=== PATIENT | male | born 1985 | race Caucasian/White ===

== ENCOUNTER → 2024-05-31 | Outpatient (CLI) | payer OTHER, SELFPAY ==
--- NOTE | 2024-05-31 07:49 | CT_ITS ---
EXAM: CT MAXILLOFACIAL SINUSES WITHOUT INTRAVENOUS CONTRAST CLINICAL INDICATION: SINUSITIS TECHNIQUE: Helically acquired images were obtained of the maxillofacial sinuses without intravenous contrast. This CT exam was performed using one or more of the following dose reduction techniques: automated exposure control, adjustment of the mA and/or kV according to patient size, and/or use of iterative reconstruction technique. COMPARISON: No relevant prior studies available. FINDINGS: MAXILLARY SINUSES: Mild mucosal thickening within the right maxillary sinus. Ostiomeatal complexes are normally formed. SPHENOID SINUSES: Clear. FRONTAL SINUSES: Clear. ETHMOID AIR CELLS: Clear. NASAL CAVITY/SEPTUM: Right-sided sharon bullosa noted associated with 4 mm of deviation of the nasal septum to the left of midline. ORBITS: Normal. CT/Sinus/Facial Bone IMPRESSION: No acute findings in the sinuses. 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 Electronically Signed: Guicho Cowan MD at 10:56 EDT ,
== END | disposition home or self-care (01) ==
LOC: CT 07:45
PROVIDERS: Referring Provider Otolaryngology; Visit Provider Otolaryngology
DX: J32.8 Other chronic sinusitis (principal)
CPT/HCPCS: 70486

== ENCOUNTER → 2024-06-24 | Outpatient (CLI) | payer OTHER, SELFPAY | END | disposition home or self-care (01) | LOC: LABSPEC 14:58 | PROVIDERS: Referring Provider Otolaryngology; Visit Provider Otolaryngology | DX: J32.8 Other chronic sinusitis (principal) | CPT/HCPCS: 87070; 87077; 87186; 87205 ==

== ENCOUNTER → 2024-09-20 | Outpatient (CLI) | payer OTHER, SELFPAY ==
--- NOTE | 2024-09-20 09:54 | RAD_ITS ---
INDICATION: PAIN EXAMINATION/TECHNIQUE: X-RAY - XR Pelvis 1 or 2 Views COMPARISON: No relevant prior comparison study available FINDINGS: PELVIC BONES: No displaced fracture, destructive or sclerotic lesions. Note that overlapping bowel shadows may however obscure fine detail. Sacroiliac joints are unremarkable. No widening of the pubic symphysis. HIPS: The articular structures are unremarkable. No displaced fracture seen in this frontal view. SOFT TISSUES: No soft tissue swelling or gas. RAD/Pelvis 1 or 2 Views IMPRESSION: No evidence of displaced pelvic or hip fracture. Electronically Signed: Greer Downey MD at 21:25 EDT ,
--- NOTE | 2024-09-20 09:54 | RAD_ITS ---
EXAM: XR THORACIC SPINE, 4 VIEWS CLINICAL INDICATION: PAIN TECHNIQUE: Frontal, 2 lateral views, and swimmer''s views of the thoracic spine. COMPARISON: No relevant prior studies available. FINDINGS: VERTEBRAE: The usual kyphotic curvature is well-maintained. Spondylosis at mid and lower thoracic levels Disc height is fairly well-maintained. Straightening of the usual lordotic curvature of the cervical spine on the swimmer''s view. OTHER: Intact posterior ribs. No mediastinal widening. Normal heart size. DISC SPACES: Unremarkable. Disc spaces are maintained. RAD/Thoracic Spine 3 Views IMPRESSION: Minimal degenerative changes. Electronically Signed: Laure Cordova MD at 2:23 EDT ,
--- NOTE | 2024-09-20 09:54 | RAD_ITS ---
EXAM: XR LUMBOSACRAL SPINE, 4 VIEWS CLINICAL INDICATION: PAIN TECHNIQUE: Frontal and lateral views of the lumbar spine. 2 of each. COMPARISON: No relevant prior studies available. FINDINGS: VERTEBRAE: There is minimal levoscoliosis at the thoracolumbar junction. Mild anterior spondylosis at T12-L3. The usual lordotic curvature well-maintained. DISC SPACES: At least mild-moderate disc space narrowing at T12-L2, and mild narrowing at L3-4 and L5-S1. GASTROINTESTINAL TRACT: Unremarkable as visualized. Included bowel gas pattern is non-obstructive. Stool and gas in the rectum. RAD/Lumbar Spine 2 or 3 Views IMPRESSION: Mild multilevel degenerative changes. Minimal scoliosis. Normal lordosis. Electronically Signed: Laure Cordova MD at 2:26 EDT ,
[2024-09-20 12:27] LABS: Absolute Lymphocyte Count 3.22 X10^3/uL (0.83-4.51); Absolute Neutrophil Count 5.7 X10^3/uL (2.0-7.7); Basophil# 0.05 X10^3/uL; Basophil% 0.5 % (0-1); Eosinophil# 0.13 X10^3/uL; Eosinophils% 1.3 % (0-5); Hematocrit 44.7 % (40-54); Hemoglobin 14.4 g/dL (13.0-16.5); Lymphocyte # 3.22 X10^3/ul (0.83-4.51); Lymphocyte % 33.2 % (19-41); Mean Corp Hgb Conc 32.2 g/dL (32-36); Mean Corpuscular Hgb 27.1 pg (27.0-32.0); Mean Platelet Vol. 9.3 fl (6.2-12.0); Monocyte# 0.49 X10^3/uL; Monocyte% 5.1 % (0-10); NRBC Flagged by Analyzer 0 % (0-5); Neutrophil # 5.74 X10^3/uL (2.7-7.7); Neutrophil % 59.3 % (47-70); Platelet Count 329 K/mm3 (150-450); RBC Distribution Width CV 13.4 % (11.6-14.6); RBC Distribution Width SD 41.1 fl (35.1-43.9); Red Blood Count 5.32 M/mm3 (4.6-6.2); White Blood Count 9.7 K/mm3 (4.4-11.0)
[2024-09-20 12:40] LABS: ALB/GLOB Ratio 0.9 RATIO (0.9-2.4); AST(SGOT) 23 U/L (15-37); Alanine Aminotransfer ALT/SGPT 51 U/L (16-61); Albumin, Serum 4.1 g/dL (3.2-5.0); Alkaline Phosphatase 100 U/L (45-117); Anion Gap 5 (5-15); BUN 14 mg/dL (7-18); BUN/Creat Ratio 18.1 RATIO (10-20); Calcium,Total 9.9 mg/dL (8.5-10.1); Chloride 103 mmol/L (98-107); Creatinine, Serum 0.77 mg/dL (0.70-1.30); EST Glomerular Filtration Rate 119 mL/min (>60); Est Glom Filt Rate - Afr Amer 144 mL/min (>60); Globulin 4.5 g/dL (2.2-4.2); Glucose 98 mg/dL (74-106); Potassium 4.2 mmol/L (3.5-5.1); Protein, Total 8.6 g/dL (6.4-8.2); Rheumatoid Factor < 10.0 IU/mL (<15); Sodium Level 138 mmol/L (136-145)
[2024-09-20 13:12] LABS: Hepatitis B Surface Antibody Non-Reactive; Hepatitis B Surface Antigen Non-Reactive (Nonreactive); Hepatitis C Antibody Non-Reactive (Nonreactive)
[2024-09-26 18:07] LABS: CCP IgG Antibodies 5 units (0-19); HLA B27 Negative (.); QNTFERON TB Mitogen Value > 10.00 IU/mL (.); QNTFERON TB Nil Value 0.02 IU/mL (.); QNTFERON TB1+ Ag Value 0.03 IU/mL (.); QNTFERON TB2+ Ag Value 0.04 IU/mL (.); QNTIFERON TB Positive Criteria Negative (Negative)
== END | disposition home or self-care (01) ==
LOC: MTLAB 09:52
PROVIDERS: Referring Provider Internal Medicine Rheumatology; Visit Provider Internal Medicine Rheumatology
DX: M06.4 Inflammatory polyarthropathy (principal); Q66.70 Congenital pes cavus, unspecified foot
CPT/HCPCS: 36415; 72072; 72100; 72170; 80053; 81374; 85025; 86200; 86431; 86480; 86706; 86803; 87340

== ENCOUNTER → 2024-09-30 | Outpatient (CLI) | payer OTHER, SELFPAY ==
[2024-10-03 14:09] LABS: Deamidated Gliadin IgA 3 units (0-19); Deamidated Gliadin IgG 2 units (0-19); Endomysial Antibody IgA Negative (Negative); Immunoglobulin A 364 mg/dL (90-386); t-Transglutaminase IgA <2 U/mL (0-3)
== END | disposition home or self-care (01) ==
LOC: MTLAB 12:44
PROVIDERS: Referring Provider Internal Medicine Rheumatology; Visit Provider Internal Medicine Rheumatology
DX: M06.4 Inflammatory polyarthropathy (principal); E78.5 Hyperlipidemia, unspecified
CPT/HCPCS: 36415; 82784; 83516; 86255

== ENCOUNTER 2025-05-17 14:56 | Emergency (ER) | payer OTHER, SELFPAY ==
[2025-05-17] VITALS (7 sets, daily range): BP systolic 142–194; BP diastolic 91–116; PULSE 68–117; RESP 14–19; TEMP 36.8–37.1; O2SAT 96–100; BMI 45.8
--- NOTE | 2025-05-17 17:01 | EKG12_ITS ---
Test Reason : Blood Pressure : */* mmHG Vent. Rate : 113 BPM Atrial Rate : 113 BPM P-R Int : 156 ms QRS Dur : 86 ms QT Int : 326 ms P-R-T Axes : 52 16 9 degrees QTcB Int : 447 ms Sinus tachycardia Cannot rule out Inferior infarct , age undetermined Abnormal ECG Confirmed by MICHAEL BOWSER, SONJA ([id number]), supervising editor trailer EUGENIA ARNOLD ([id number]) on 05/19/2025 1:02:40 PM Referred By: Confirmed By: SONJA RODRIGUEZ MD
--- NOTE | 2025-05-17 17:10 | RAD_ITS ---
PROCEDURE: CHEST 1 VIEW (PORTABLE) 05/17/2025 REASON FOR EXAM: CHEST PAIN TECHNIQUE: Frontal view of the chest. COMPARISON: None FINDINGS: Mild pulmonary vascular congestion. No focal consolidation. Bibasilar subsegmental atelectasis. No pleural effusion or pneumothorax. Cardiac silhouette is within normal limits. RAD/Chest 1 View (Portable) IMPRESSION: Mild pulmonary vascular congestion. No focal consolidation. Bibasilar subsegmen chela atelectasis. Reading Location: [id number]
[2025-05-17 17:14] LABS: Absolute Lymphocyte Count 2.61 X10^3/uL (0.83-4.51); Absolute Neutrophil Count 8.2 X10^3/uL (2.0-7.7); Basophil# 0.08 X10^3/uL; Basophil% 0.7 % (0-1); Eosinophil# 0.09 X10^3/uL; Eosinophils% 0.8 % (0-5); Hematocrit 44.9 % (40-54); Hemoglobin 15.5 g/dL (13.0-16.5); Lymphocyte # 2.61 X10^3/ul (0.83-4.51); Lymphocyte % 22.5 % (19-41); Mean Corp Hgb Conc 34.5 g/dL (32-36); Mean Corpuscular Hgb 27.9 pg (27.0-32.0); Mean Corpuscular Volume 80.9 fL (80-94); Mean Platelet Vol. 9.2 fl (6.2-12.0); Monocyte# 0.54 X10^3/uL; Monocyte% 4.7 % (0-10); NRBC Flagged by Analyzer 0 % (0-5); Neutrophil # 8.18 X10^3/uL (2.7-7.7); Neutrophil % 70.5 % (47-70); Platelet Count 328 K/mm3 (150-450); RBC Distribution Width CV 13.3 % (11.6-14.6); RBC Distribution Width SD 38.8 fl (35.1-43.9); Red Blood Count 5.55 M/mm3 (4.6-6.2); White Blood Count 11.6 K/mm3 (4.4-11.0)
[2025-05-17 17:35] LABS: Anion Gap 14 (5-15); BUN 15 mg/dL (4-19); BUN/Creat Ratio 17.4 RATIO (10-20); Calcium,Total 9.9 mg/dL (7.6-11.0); Carbon Dioxide 22.5 mmol/L (21.0-32.0); Chloride 100 mmol/L (98-108); Creatinine, Serum 0.83 mg/dL (0.70-1.20); EST Glomerular Filtration Rate 115 (>60); Estimated Creatinine Clearance 194.58 ml/min (50-250); Glucose 93 mg/dL (70-99); Potassium 3.9 mmol/L (3.3-5.1); Sodium Level 136 mmol/L (133-145); Troponin T High Sensitivity < 6 ng/L (<=22)
[2025-05-17] MEDS: Aspirin 81 MG TAB.CHEW 324 MG PO (18:19)
[2025-05-17 19:46] LABS: Troponin T High Sens 2 HR < 6 ng/L (<=22)
--- NOTE | 2025-05-17 20:54 | EDS_ITS ---
HPI History of Present Illness Chief Complaint: Chest Other Detail of Chief Complaint: Right-sided chest pain and shoulder pain Informant: patient Onset/Context/Timing Onset: Today (1 hour prior to presentation while driving) and - (Has had intermittent episodes for some time. He has been seen twice at [facility] and told this is due to an infection.) Activity at onset: sudden and rest Timing: Intermittent Quality: Positive for Burning Location: Right Parasternal Current Severity: Mild Maximum Severity: Moderate Worsened By: Nothing Relieved By: Nothing Associated Symptoms: Negative for Nausea, Vomiting, Diaphoresis, Dyspnea, Cough, Fever, Lightheadedness, Acid Reflux or Palpitations Narrative Narrative: Patient is a 39-year-old male. He is a former smoker. States he is gained a lot of weight since he quit smoking a couple years ago. He has had intermittent chest pain. Describes today's as burning. Concerned because it radiates to his right shoulder. He had no associated symptoms. This occurred while at rest. He denies history of peptic ulcer disease, hiatal hernia reflux or sour eructation. He denies black or maroon-colored stool. He denies history of VTE. He has no risk factors for VTE. He denies leg pain, swelling discoloration. He does have problems with sinuses. He states he was seen by ENT here in [place] and they recommended surgical procedure. He now resides near [place] and saw account underwriter in [place] and he was informed that he does not need surgery. He apparently does have history of allergies. Prior Similar Symptoms: Yes and - (Told there was an infection) Recent Illness/Hospitalization: No CVD Risk Factors: Negative for Hypertension, Diabetes, Hypercholesterolemia, Family History 1' </=55 or Smoking (Former. Smoked for approximate 15 years.) PE Risk Factors: Negative for Recent Travel/Surgery, Recent Immobilization, Prior DVT or PE, Cancer or OCP + Smoking + >/=35 TAD Risk Factors: Negative for Marfan's Syndrome, Hypertension or Family History PFSH PFSH Medical History no medical history no medical history Allergy/AdvReac Type Severity Reaction Status Date / Time No Known Allergies Allergy Verified 05/17/25 15:00 Social History (Updated 05/17/25 @ 20:[address] Mauricio Holt MD) household members: spouse Smoking Status: Never smoker ROS ROS ED Constitutional Constitutional ED: Denies chills, fever(s) or subjective Eyes Eyes: Reports none ENT ENT ED: Reports rhinorrhea; Denies ear pain or sore throat Cardiovascular Cardiovascular: Reports as per HPI; Denies orthopnea or paroxysmal nocturnal dyspnea Respiratory/Chest Respiratory/Chest: Denies cough, dyspnea, dyspnea on exertion, orthopnea or paroxysmal nocturnal dyspnea Gastrointestinal Gastrointestinal: Denies abdominal pain, melena, nausea or vomiting Musculoskeletal Musculoskeletal: Denies arthralgias, back pain or myalgias Hematologic/Lymphatic Hematologic/Lymphatic: Denies easy bleeding or easy bruising EXAM Physical Exam Const Vital Signs: 05/17/25 14:58 05/17/25 16:01 05/17/25 17:00 Temperature 98.3 F Temperature Source Oral Pulse Rate 117 H 103 H 103 H Respiratory Rate 18 19 H Blood Pressure 187/116 H 194/91 H 171/111 H Blood Pressure Mean 139 125 131 Pulse Ox 100 100 97 Oxygen Delivery Method Room Air Room Air 05/17/25 17:01 05/17/25 18:00 05/17/25 19:24 Temperature Temperature Source Pulse Rate 104 H Respiratory Rate 14 Blood Pressure 158/111 H 162/106 H Blood Pressure Mean 126 124 Pulse Ox 97 Oxygen Delivery Method Room Air Room Air 05/17/25 20:26 Temperature Temperature Source Pulse Rate Respiratory Rate Blood Pressure 153/104 H Blood Pressure Mean 120 Pulse Ox Oxygen Delivery Method Positive well nourished and well developed Constitutional Narrative: BMI is 45.8. Patient appears no distress. Blood pressure is elevated. He states a week or 2 ago his blood pressure was 120 systolic. General Appearance ED: well developed; Negative for pallor HEENT normocephalic and atraumatic Eyes PERRL and EOMs intact bilaterally General Eye ED: Negative for pale conjunctiva or scleral icterus Neck Neck Narrative: Unable to assess for JVD based on body habitus. Resp clear to auscultation bilaterally Cardio regular rate, regular rhythm, S1 normal heart sound, S2 normal heart sound and no murmurs GI normal to inspection, nondistended, normoactive bowel sounds, soft to palpation, non-tender, non-distended and no masses Extremity normal to inspection Neuro oriented x3 and CN's II-XII intact bilaterally Sensorium / Orientation: awake and alert Psych mental status grossly normal Skin no rashes or lesions noted and no wounds General Skin Exam: Negative for jaundice or pallor MDM MDM MDM Narrative Medical decision making narrative: Patient with burning chest pain. This may represent cardiac most likely noncardiac and will need to include esophagitis, gastritis, duodenitis versus u lcer. He has no history of reflux and symptoms not consistent with reflux. Patient's presentation is not consistent with PE or DVT. History is not consistent with aortic dissection. With him having symmetric breath sounds doubt pulm pneumothorax. His workup included EKG appropriate blood work including troponin and 2-hour troponin. History & Record Review Discussion w/independent historian: Patient and Significant other Lab Data Attestation: I reviewed the patient's lab results. Lab results narrative: White count is elevated 11,600 which is insignificant. H&H is normal. Electrolyte panel is normal. 1st and 2nd troponin were less than 6. EKG was not normal. Labs: Laboratory Results - last 24 hr 05/17/25 05/17/25 16:50 19:19 WBC 11.6 H RBC 5.55 Hgb 15.5 Hct 44.9 MCV 80.9 MCH 27.9 MCHC 34.5 RDW Std Deviation 38.8 RDW Coeff of Eob[place] 13.3 Plt Count 328 MPV 9.2 Immature Gran % (Auto) 0.800 Neut % (Auto) 70.5 H Lymph % (Auto) 22.5 [place] % (Auto) 4.7 Eos % (Auto) 0.8 Baso % (Auto) 0.7 Absolute Neuts (auto) 8.2 H Absolute Lymphs (auto) 2.61 Nucleated RBC % 0 Sodium 136 Potassium 3.9 Chloride 100 Carbon Dioxide 22.5 Anion Gap 14 BUN 15 Creatinine 0.83 Estim Creat Clear Calc 194.58 Est GFR (MDRD) Non-Af 115 BUN/Creatinine Ratio 17.4 Glucose 93 Calcium 9.9 Troponin T High Sens < 6 Troponin T Hi Sens 2 Hr < 6 Radiography Chest X-Ray - ED: Read by ED Physician (Film is limited due to the fact of body habitus. Patient has normal cardiac silhouette and size. There appears to be some atelectasis at the bases. [place] is unremarkable. Osseous structures are unremarkable. There is no evidence of infiltrate, effusion, pneumothorax.) Diagnostic Testing: Clinical Impression(s) from Imaging Studies Chest X-Ray 05/17/25 17:10 IMPRESSION: Mild pulmonary vascular congestion. No focal consolidation. Bibasilar subsegmental atelectasis. Reading Location: [facility] EKG Initial EKG: Attestation: I personally reviewed and interpreted this EKG as follows: Interpretation: Sinus Tachycardia (Sinus tachycardia rate of 113. There is nonseptic changes noted inferiorly. GA interval is 156 ms. Cures duration 86 ms. QT duration 326 ms. [place] is normal. EKG was obtained from [facility]. 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, pneumonia Reason(s) pneumonia less likely: Positive for no infiltrate on CXR, no noted fever and symptoms not consistent with acute infection, aortic dissection Reason(s) Aortic dissection less likely:: Positive for normal vascular exam, no history of HTN, normal neurological exam, no significant risk factors for dissection, no widened mediastinum on CXR, pain not sudden onset, no ripping/tearing pain and no pain to back, CHF Reason(s) CHF less likely: Positive for no significant peripheral edema, no orthopnea, no evidence of fluid overload on CXR and BtNP not significantly elevated over normal/baseline and COPD Reason(s) COPD less likely: Positive for no significant wheezing on exam, no tachypnea, no conversational dyspnea and normal air movement noted on auscultation on lungs Treatment and Re-Evaluation :: Patient was informed this most likely is GI etiology. Recommend following up with his GI specialist. Also recommend follow-up with his primary care physician for elevated blood pressure reading. Discharge Plan Triage Chief Complaint: Chest Other ED Provider: Mauricio Holt Dx/Rx/DC Orders Clinical Impression: Burning chest pain, Elevated blood-pressure reading without diagnosis of hyper tension, Sinus tachycardia, Adult BMI 45.0-49.9 kg/sq m Instructions: ED Chest Pain, Noncardiac, ED Hypertension, To Be Confirmed Primary Care Provider: HALLE RODRIGUEZ Referrals: HALLE RODRIGUEZ [Other] Activity Restrictions/Additional Instructions: 1. Follow-up with your doctor in 1 to 2 weeks to have your blood pressure rechecked. 2. Follow-up with your GI specialist to evaluate your discomfort since this may be due to GI cause. 3. Recommend Pepcid 20 mg twice a day. You could buy the [id number] to see if this helps. Print Language: Com[place]an Disposition Disposition: Home, Self Care
[2025-05-17 21:25] LABS: Troponin T High Sens 4 HR < 6 ng/L (<=22)
== END 2025-05-17 21:16 | disposition home or self-care (01) ==
PROVIDERS: Emergency Provider Emergency Medicine; Visit Provider Emergency Medicine
DX: R07.9 Chest pain, unspecified (principal); R03.0 Elevated blood-pressure reading, without diagnosis of hypertension; M25.511 Pain in right shoulder; R00.0 Tachycardia, unspecified; Z87.891 Personal history of nicotine dependence
CPT/HCPCS: 71045; 80048; 84484; 85025; 93005; 99285; A4216

== ENCOUNTER → 2025-08-21 | Outpatient (CLI) | payer OTHER, SELFPAY ==
--- NOTE | 2025-08-21 07:25 | US_ITS ---
PROCEDURE: ABD LIMITED W/ ELASTOGRAPHY REASON FOR EXAM: STEATOHEPATITIS COMPARISON: None. TECHNIQUE: Procedure Code: [id number] Modality: US Procedure: ABD LIMITED W/ ELASTOGRAPHY Right upper quadrant abdominal ultrasound. Lesli ElastQ Imaging shear wave elastography for non-invasive assessment of liver tissue stiffness. Lesli EPIQ Elite. FINDINGS: LIVER: Size: Enlarged (hepatomegaly) Length: 20.4 cm Echotexture: Diffusely echogenic suggesting fatty infiltration Contour: Normal Lesions: None identified Elastography: EQI Med: 4.7 kPa EQI Med Natalio: 1.25 m/s IQR/Med: 12.8 %* GALLBLADDER: Surgically absent. COMMON BILE DUCT: Normal measuring 4 mm . PANCREAS: Visualized portions are unremarkable. The distal body and tail are obscured by bowel gas. Visualized portions of the right kidney are unremarkable. No right upper quadrant ascites. US/ABD Limited w/ Elastography IMPRESSION: NO TO MILD HEPATIC FIBROSIS Hepatomegaly. Diffuse fatty infiltration of the liver. Reference Values: SRU <1.37 m/s (5.7kPa): No to mild fibrosis 1.37 m/s - 2.2 m/s: Moderate to severe fibrosis >2.2 m/s (15kPa): Significant fibrosis / cirrhosis METAVIR Score F2 or higher: 1.34 m/s (5.7kPa) F3 or higher: 1.55 m/s (7.3kPa) F4: 1.80 m/s (10kPa) * If the IQR/Med is >30%, the variance in the measurements is a large and the a ccuracy of the measurement may be in question. Reading Location: [place] [id number]
--- OUTSIDE RECORDS SUMMARY | 2025-08-21 07:26 | XMS RPT_ITS | CCD ---
Author Organization [facility] Care Team Providers Care Correctional Guard Name Role Phone SORAIDA RACHEL Admitting Unavailable SORAIDA RACHEL Attending Unavailable CONSULT, GASTROENTEROLOGY Consulting UnavaDelonte Culver Unavailable Unavailable Unavailable Delonte Posey Primary Care Unavailable Delonte Posey Attending Unavailable KhoilAbundion Referring Unavailable Khoil Delonte Primary Care Unavailable Harish Florez Attending Unavailable Abundio Poseyn Primary Care Unavailable KhoilDelonte Attending Unavailable KhoilAbundion Referring Unavailable Newwaltl, Delonte Primary Care Unavailable ThomHarish duncan Attending Unavailable ThomHarish duncan Referring Unavailable Azaelbill Delonte HAJI Primary Care Provider Delonte Posey PA-C Unavailable Delonte Giles Primary Care Provider Delonte Giles Unavailable Harish Florez DO Unavailable Generic Provider , No Assigned Pcp Primary Car e Provider Unavailable Halle Rodriguez MD Primary Care Provider NO, PHYSICIAN Primary Care Unavailable JEAN PITTS Referring Unavailable HALLE RODRIGUEZ Primary Care Unavailable HALLE RODRIGUEZ Primary Care Unavailable HALLE RODRIGUEZ Primary Care Unavailable Halle Rodriguez MD Primary Care Provider Halle Rodriguez MD Unavailable Halle Rodriguez MD Unavailable HALLE RODRIGUEZ Primary Care Provider [phone] [facility] Emergency Provider [phone] Halle Rodriguez MD Primary Care Provider Halle Rodriguez MD Unavailable HALLE RODRIGUEZ Attending Unavailable YEATER, HALLE Sanches Primary Care Unavailable YEATER, HALLE Sanches Attending Unavailable YEATER, HALLE Sanches Primary Care Unavailable YEATER, HALLE Sanches Attending Unavailable YEATER, HALLE Sanches Primary Care Unavailable YEATER, HALLE Sanches Attending Unavailable YEATER, HALLE Sanches Primary Care Unavailable THOMAE, HARISH R Attending Unavailable YEATER, HALLE Sanches Primary Care Unavailable Mauricio Holt Attending Unavailable TREBB, CHARLES CANCHOLA Primary Care Unavailable TREBB, CHARLES CANCHOLA Primary Care Unavailable Thomperla, Harish Attending Unavailable Thomae, Harish Referring Unavailable TREBB, CHARLES CANCHOLA Primary Care Unavailable Thomae, Harish Attending Unavailable Thomae, Harish Referring Unavailable Vellanki, Michelle Referring Unavailable TREBB, CHARLES CANCHOLA Primary Care Unavailable Velshani, Michelle Attending Unavailable Vellanhorace, Michelle Attending Unavailable Vellanki, Michelle Referring Unavailable TREBB, CHARLES CANCHOLA Primary Care Unavailable THOMAE, HARISH R Referring Unavailable YEATER, HALLE Sanches Primary Care Unavailable THOMAE, HARISH R Referring Unavailable YEATER, HALLE Sanches Primary Care Unavailable YEATER, HALLE Sanches Referring Unavailable YEATER, HALLE Sanches Primary Care Unavailable THOMAE, HARISH R Referring Unavailable YEATER, HALLE Sanches Primary Care Unavailable Medications Current Medications Medication Drug Class(es) Dates Sig (Normalized) Sig (Original) [id number] 200 actuat albuterol 0.09 mg/actuat metered dose inhaler (4 sources) beta2-Adrenergic Agonist Start: 02-29-2024 End: 04-12-2024 take 2 puff(s) by inhalation every six hours for wheezing albuterol 90 mcg/actuation inhaler Indications: Acute bronchitis, unspecified organism Inhale 2 puffs every 6 hours if needed for wheezing or shortness of breath. 1 g 02/29/2024 04/12/2024 Discontinued (Med List Cleanup) famotidine 20 mg oral tablet (4 sources) Histamine-2 Receptor Antagonist famotidine (Pepcid) 20 mg tablet Take 1 tablet (20 mg) by mouth. Active fluticasone propionate 0.05 mg/actuat metered dose nasal spray (7 sources) Corticosteroid Start: 04-12-2024 End: 04-12-2025 take 1 spray(s) nasal route once daily fluticasone (Flonase) 50 mcg/actuation nasal spray Indications: Postnasal drip Administer 1 spray into each nostril once daily. Shake gently. Before first use, prime pump. After use, clean tip and replace cap. 16 g 11 04/12/2024 Active montelukast 10 mg oral tablet (10 sources) Leukotriene Receptor Antagonist Start: 07-26-2024 End: 12-21-2025 take 1 tablet by mouth once daily at bedtime montelukast (Singulair) 10 mg tablet Indications: Postnasal drip Take 1 tablet (10 mg) by mouth once daily at bedtime. 90 tablet 3 12/26/2024 12/21/2025 Active omega-3 fatty acids-fish oil 360-1,200 mg capsule (7 sources) Start: 07-27-2023 End: 07-26-2024 take 1 capsule by mouth once daily omega-3 fatty acids-fish oil 360-1,200 mg capsule Indications: Dyslipidemia Take 1 capsule (1,200 mg) by mouth once daily. 30 capsule 11 07/27/2023 07/26/2024 Discontinued (Therapy completed) Start: 07-27-2023 take 1 capsule by [facility] once daily omega-3 fatty acids-fish oil 360-1,200 mg capsule Indications: Dyslipidemia Take 1 capsule (1,200 mg) by mouth once daily. 30 capsule 11 07/27/2023 Active pantoprazole 40 mg delayed release oral tablet (4 sources) Proton Pump Inhibitor Start: 2025 End: 2026 take 1 tablet by mouth once daily pantoprazole (ProtoNix) 40 mg EC tablet Indications: Chest pain due to myocardial ischemia, unspecified ischemic chest pain type Take 1 tablet (40 mg) by mouth once daily. Do not crush, chew, or split. 30 tablet 11 2025 2026 Active predniSONE 20 mg oral tablet (3 sources) Start: 02-29-2024 End: 03-05-2024 take 2 tablets by mouth once daily predniSONE (Deltasone) 20 mg tablet Indications: Acute bronchitis, unspecified organism Take 2 tablets (40 mg) by mouth once daily for 5 days. 10 tablet 0 02/29/2024 03/05/2024 Active Start: 01-20-2023 predniSONE 10 MG Oral Tablet Take 3 TABLETS DAILY FOR 2 DAYS, 2 TABLETS DAILY FOR 2 DAYS AND 1 TABLET DAILY FOR 2 DAYS, THEN STOP Quantity: 12 Refills: 1 Ordered: 20-Jan-2023 Delonte Posey PA-C Start : 20-Jan-2023 Active Completed/Discontinued Medications Medication Drug Class(es) Dates Sig (Normalized) Sig (Original) amoxicillin 875 mg oral tablet (2 sources) Penicillin-class Antibacterial Start: 01-20-2023 take 1 tablet by mouth twice daily Amoxicillin 875 MG Oral Tablet Take 1 tablet twice daily Quantity: 10 Refills: 0 Ordered: 20-Jan-2023 Delonte Posey PA-C Start : 20-Jan-2023 Active brompheniramine maleate 0.4 mg/ml / dextromethorphan hydrobromide 2 mg/ml / pseudoephedrine hydrochloride 6 mg/ml oral solution (2 sources) alpha-Adrenergic Agonist, Uncompetitive D-mksrag-O-aspartat e Receptor Antagonist, Sigma-1 Agonist Start: 01-20-2023 take 5-10 mL by mouth every four to six hours as needed for cough Pseudoeph-Bromphe n-DM 30-2-10 MG/5ML Oral Syrup take 5-10 mL po q4-6 hrs prn cough, cold, or allergy symptoms Quantity: 120 Refills: 1 Ordered: 20-Jan-2023 Delonte Posey PA-C Start : 20-Jan-2023 Active iohexol (OMNIPaque) 350 mg iodine/mL solution 72 mL (1 source) Start: 06-27-2025 End: 06-27-2025 72 mL, intravenous, Once in imaging, Starting on Thu06/27/25 at 1123, For 1 dose rosuvastatin calcium 20 mg oral tablet (15 sources) HMG-CoA Reductase Inhibitor Start: 04-12-2024 End: 12-26-2024 take 0.5 tablet by mouth once daily rosuvastatin (Crestor) 20 mg tablet Indications: Dyslipidemia Take 0.5 tablets (10 mg) by mouth once daily. 90 tablet 2 04/12/2024 12/26/2024 Discontinued (Med List Cleanup) Start: 07-12-2023 End: 04-12-2024 take 1 tablet by mouth once daily rosuvastatin (Crestor) 10 mg tablet Take 1 tablet (10 mg) by mouth once daily. 07/12/2023 04/12/2024 Discontinued (Reorder) Start: 01-22-2023 take 1 tablet by max th once daily Rosuvastatin Calcium 10 MG Oral Tablet TAKE 1 TABLET DAILY. Quantity: 30 Refills: 5 Ordered: 22-Jan-2023 Delonte Posey PA-C Start : 22-Jan-2023 Active 1000 ml sodium chloride 9 mg /ml injection (1 source) Start: 02-29-2024 End: 02-29-2024 sodium chloride 0.9 % bolus 1,000 mL Problems Active Problems Problem Classification Problem Date Documented Da te Episodic/Chronic Abdominal pain (2 sources) Abdominal pain; Translations: [Abdominal Pain] Onset: 01-07-2023 Episodic Acute bronchitis (1 source) Acute bronchitis; Translations: [Acute bronchitis, unspecified] 02-29-2024 Episodic Cardiac dysrhythmias (1 source) Sinus tachycardia; Translations: [Tachycardia, unspecified] 05-17-2025 Episodic Contraceptive and procreative management (4 sources) Patient encounter status; Translations: [Encounter for other general counseling and advice on contraception] Onset: 04-28-2024 12-23-2023 Episodic Coronary atherosclerosis and other heart disease (13 sources) Ischemic chest pain; Translations: [Chronic ischemic heart disease, unspecified] Onset: 2025 2025 Chronic Diseases of white blood cells (2 sources) Elevated white blood cell count, unspecified; Translations: [Elevated white blood cell count, unspecified] Onset: 08-12-2024 Chronic Disorders of lipid metabolism (20 sources) Dyslipidemia; Translations: [Other and unspecified hyperlipidemia] Onset: 06-29-2023 06-29-2023 Chronic Hepatitis (1 source) Nonalcoholic steatohepatitis (GREEN); Translations: [Nonalcoholic steatohepatitis (GREEN)] Onset: 08-11-2025 Chronic Nonspecific chest pain (7 sources) Chest pain; Translations: [Chest pain, unspecified] Onset: 2025 02-29-2024 Episodic Other circulatory disease (1 source) Elevated blood-pressure reading without diagnosis of hypertension; Translations: [Elevated blood-pressure reading, without diagnosis of hypertension] 05-17-2025 Episodic Other connective tissue disease (2 sources) Myalgia, unspecified site; Translations: [Myalgia, unspecified site] Onset: 07-26-2024 Episodic Other diseases of kidney and ureters (1 source) Disorder of kidney and ureter, unspecified; Translations: [Disorder of kidney and ureter, unspecified] Onset: 05-12-2023 Episodic Other gastrointestinal disorders (3 sources) Personal history of other diseases of the digestive system; Translations: [Personal history of other diseases of the digestive system] Onset: 02-06-2023 Episodic Other liver diseases (4 sources) Steatosis of liver; Translations: [Other chronic nonalcoholic liver disease] Chronic Other liver diseases (1 source) Fatty (change of) liver, not elsewhere classified; Translations: [Fatty (change of) liver, not elsewhere classified] Onset: 03-05-2023 Chronic Other liver diseases (1 source) Hepatomegaly with splenomegaly, not elsewhere classified; Translations: [Hepatomegaly with splenomegaly, not elsewhere classified] Onset: 05-12-2023 Episodic Other nervous system disorders (2 sources) Disturbance of attention; Translations: [Attention and concentration deficit] 09-22-2024 Chronic Other nervous system disorders (2 sources) Attention and concentration deficit; Translations: [Attention and concentration deficit] Onset: 09-22-2024 Chronic Other nutritional; endocrine; and metabolic disorders (11 sources) Severe obesity; Translations: [Morbid (severe) obesity due to excess calories] Onset: 04-12-2024 04-12-2024 Chronic Other nutritional; endocrine; and metabolic disorders (1 source) Body mass index 40+ - severely obese; Translations: [Body mass index (BMI) 45.0-49.9, adult] 05-17-2025 Chronic Other nutritional; endocrine; and metabolic disorders (4 sources) Morbid (severe) obesity due to excess calories; Translations: [Morbid (severe) obesity due to excess calories (Multi)] Onset: 04-12-2024 Chronic Other nutritional; endocrine; and metabolic disorders (4 sources) Body mass index (BMI) 45.0-49.9, adult; Translations: [Body mass index (BMI) 45.0-49.9, adult (Multi)] Onset: 04-12-2024 Chronic Other upper respiratory disease (5 sources) Allergic disposition; Translations: [Allergic rhinitis due to other allergen] Chronic Pancreatic disorders (not diabetes) (6 sources) Chronic pancreatitis; Translations: [Chronic pancreatitis] Onset: 05-12-2023 Chronic Pancreatic disorders (not diabetes) (14 sources) Acute pancreatitis; Translations: [Acute pancreatitis] Onset: 02-06-2023 Episodic Residual codes; unclassified (1 source) Hypersomnia; Translations: [Hypersomnia, unspecified] 08-15-2024 Chronic Residual codes; unclassified (4 sources) Hypersomnia, unspecified; Translations: [Hypersomnia, unspecified] Onset: 08-15-2024 Chronic Rheumatoid arthritis and related disease (1 source) Inflammatory polyarthropathy; Translations: [Inflammatory polyarthropathy] Onset: 12-02-2024 Chronic Unclassified (1 source) Pain in other specified joint; Translations: [Pain in other specified joint] Onset: 07-26-2024 Past or Other Problems Problem Classification Problem Date Documented Da te Episodic/Chronic Allergic reactions (5 sources) Environmental allergy; Translations: [Other allergy status, other than to drugs and biological substances] Onset: 09-22-2024 09-22-2024 Episodic Immunizations and screening for infectious disease (3 sources) Requires diphtheria, tetanus and pertussis vaccination; Translations: [Encounter for immunization] Onset: 12-26-2024 12-26-2024 Episodic Other connective tissue disease (1 source) Muscle pain; Translations: [Myalgia, unspecified site] 07-26-2024 Episodic Other gastrointestinal disorders (20 sources) History of pancreatitis; Translations: [Personal history of other diseases of digestive system] Onset: 06-29-2023 06-29-2023 Episodic Other hematologic conditions (4 sources) Elevated erythrocyte sedimentation rate; Translations: [Elevated erythrocyte sedimentation rate] Onset: 08-12-2024 Episodic Other hematologic conditions (1 source) ESR raised; Translations: [Elevated erythrocyte sedimentation rate] 08-15-2024 Episodic Other lower respiratory disease (3 sources) Snoring; Translations: [Snoring] Onset: 08-15-2024 08-15-2024 Episodic Other lower respiratory disease (2 sources) Snoring; Translations: [Snoring] Onset: 08-15-2024 Episodic Other non-traumatic joint disorders (1 source) Joint pain; Translations: [Pain in other joint] 07-26-2024 Episodic Other screening for suspected conditions (not mental disorders or infectious disease) (1 source) Abnormal findings on diagnostic imaging of other abdominal regions, including retroperitoneum; Translations: [Abn findings on dx imaging of abd regions, inc retroperiton] Onset: 02-06-2023 Episodic Other upper respiratory infections (18 sources) Posterior rhinorrhea; Translations: [Postnasal drip] Onset: 04-12-2024 04-12-2024 Episodic Residual codes; unclassified (10 sources) Family history of cancer of colon; Translations: [Family history of malignant neoplasm of digestive organs] Onset: 04-12-2024 04-12-2024 Episodic Unclassified (1 source) Pain in other specified joint; Translations: [Pain in other specified joint] Onset: 07-26-2024 Results Test Name Value Interpretation Reference Range Facility Cardiac stress study Procedu dwight 08-10-2025 Summary: 1. Baseline EKG showing normal sinus rhythm with no resting ST-T segment changes. 2. Patient exercised for 7 minutes and 00 seconds achieving 8.5 METS. 3. Heart rate response to exercise is normal. Blood pressure response to exercise is elevated. 4. Exercise capacity is normal average for age. 5. With exercise, there are no ST-T segment changes suggestive of ischemia. No sustained ventricular arrhythmias are seen. 6. Exercise stress EKG is negative for ischemia. However, there are EKG artifacts in peak exercise that may reduce the sensitivity of the test. 7. Silveira treadmill score is 7 (low risk). 8. Adequate [place] [address] [phone], Exercise Stress Test Patient Name: DELONTE BALTAZAR Ordering Provider: [id number] HARISH FLOREZ Study Date: 08/10/2025 Reading Physician: [id number] Dominick Vogel MD MRN/PID: [id number] Supervising Physician: [id number] Vogel MD Fellow: Date of /Age: 6 1985 / 40 years Fellow: Gender: M Nurse: N/A Admit Date: 08/10/2025 Toxicology Teacher: Sarah Cullen Admission Status: Outpatient Vice President Consulting Services: N/A Height: 188.00 cm Technologist: Weight: 160.00 kg Additional Staff: BSA: 2.77 m2 BMI: 45.27 kg/m2 Patient Location: [facility] Stress Lab Study Type: STRESS TEST ONLY Diagnosis/ICD: Chest pain, unspecified-R07.9 Indication: Chest Pain CPT Codes: Stress Test Interpretation-40410; Stress Test Supervision-[id number] Falls Risk: Low: Patient has low risk for sustaining a fall; environmental safety interventions in place. Study Details: Correct procedure and correct patient verified verbally and with ID Band checked. Patient History: Chest pain. Allergies: None. Smoker: Former. Diabetes: No. BMI: Obese >30. Medications: PANTOPRAZOLE. The patient did not take medications as prescribed. Patient Performance: The patient exercised to stage III on a Edwin protocol for 7 minutes and 00 seconds, achieving 8.5 METS. The peak heart rate achieved was 169 bpm, which was 93 % of the age predicted target heart rate of 181 bpm. The resting blood pressure was 143/95 mmHg with a heart rate of 86 bpm. The standing blood pressure was 158/107 mmHg with a heart rate of 88 bpm. The patient developed shortness of breath during the stress exam. The symptoms resolved with rest 6 minutes into recovery. The blood pressure response was hypertensive. The test was terminated due to: MPHR >85%. Baseline ECG: Resting ECG showed normal sinus rhythm with normal tracing. Stress ECG: Stress ECG showed sinus tachycardia. Stress Stage Data: + +---+ ------+-------+ HR Sys BP Andrade BP + +---+ ------+-------+ Baseline Resting 86 143 95 + +---+ ------+-------+ Baseline Standing 88 158 107 + +---+ ------+-------+ Stage I 130 182 62 + +---+ ------+-------+ Stage II 157 232 10 + +---+ ------+-------+ Stage III 166 + +---+ ------+-------+ Recovery ECG: Recovery ECG showed sinus tachycardia. The heart rate recovery was normal. + +---+----- -+-------+ HR Sys BP Andrade BP + +---+----- -+-------+ Recovery I 144 + +---+----- -+-------+ Recovery II 112 + +---+----- -+-------+ Recovery III 111 236 109 + +---+----- -+-------+ Recovery IV 106 190 94 + +---+----- -+-------+ Recovery V 105 178 90 + +---+----- -+-------+ Recovery 104 + +---+----- -+-------+ Summary: 1. Baseline EKG showing normal sinus rhythm with no resting ST-T segment changes. 2. Patient exercised for 7 minutes and 00 seconds achieving 8.5 METS. 3. Heart rate response to exercise is normal. Blood pressure response to exercise is elevated. 4. Exercise capacity is normal average for age. 5. With exercise, there are no ST-T segment changes suggestive of ischemia. No sustained ventricular arrhythmias are seen. 6. Exercise stress EKG is negative for ischemia. However, there are EKG artifacts in peak exercise that may reduce the sensitivity of the test. 7. Silveira treadmill score is 7 (low risk). 8. Adequate level of stress achieved. [id number] Dominick Vogel MD Electronically signed on 08/10/2025 at 10:40:05 AM Final Dominick Andrew MD - 08/10/2025 [place] [address] [phone], Exercise Stress Test Patient Name: DELONTE BALTAZAR Ordering Provider: [id number] HARISH FLOREZ Study Date: 08/10/2025 Reading Physician: [id number] Vogel MD MRN/PID: [id number] Supervising Physician: [id number] Vogel MD Fellow: Date of /Age: 6 1985 / 40 years Fellow: Gender: M Nurse: N/A Admit Date: 08/10/2025 Toxicology Teacher: Sarah Cullen Admission Status: Outpatient Vice President Consulting Services: N/A Height: 188.00 cm Technologist: Weight: 160.00 kg Additional Staff: BSA: 2.77 m2 BMI: 45.27 kg/m2 Patient Location: [facility] Stress Lab Study Type: STRESS TEST ONLY Diagnosis/ICD: Chest pain, unspecified-R07.9 Indication: Chest Pain CPT Codes: Stress Test Interpretation-41854; Stress Test Supervision-[id number] Falls Risk: Low: Patient has low risk for sustaining a fall; environmental safety interventions in place. Study Details: Correct procedure and correct patient verified verbally and with ID Band checked. Patient History: Chest pain. Allergies: None. Smoker: Former. Diabetes: No. BMI: Obese >30. Medications: PANTOPRAZOLE. The patient did not take medications as prescribed. Patient Performance: The patient exercised to stage III on a Edwin protocol for 7 minutes and 00 seconds, achieving 8.5 METS. The peak heart rate achieved was 169 bpm, which was 93 % of the age predicted target heart rate of 181 bpm. The resting blood pressure was 143/95 mmHg with a heart rate of 86 bpm. The standing blood pressure was 158/107 mmHg with a heart rate of 88 bpm. The patient developed shortness of breath during the stress exam. The symptoms resolved with rest 6 minutes into recovery. The blood pressure response was hypertensive. The test was terminated due to: MPHR >85%. Baseline ECG: Resting ECG showed normal sinus rhythm with normal tracing. Stress ECG: Stress ECG showed sinus tachycardia. Stress Stage Data: + +---+ ------+-------+ HR Sys BP Andrade BP + +---+ ------+-------+ Baseline Resting 86 143 95 + +---+ ------+-------+ Baseline Standing 88 158 107 + +---+ ------+-------+ Stage I 130 182 62 + +---+ ------+-------+ Stage II 157 232 10 + +---+ ------+-------+ Stage III 166 + +---+ ------+-------+ Recovery ECG: Recovery ECG showed sinus tachycardia. The heart rate recovery was normal. + +---+----- -+-------+ HR Sys BP Andrade BP + +---+----- -+-------+ Recovery I 144 + +---+----- -+-------+ Recovery II 112 + +---+----- -+-------+ Recovery III 111 236 109 + +---+----- -+-------+ Recovery IV 106 190 94 + +---+----- -+-------+ Recovery V 105 178 90 + +---+----- -+-------+ Recovery 104 + +---+----- -+-------+ Summary: 1. Baseline EKG showing normal sinus rhythm with no resting ST-T segment changes. 2. Patient exercised for 7 minutes and 00 seconds achieving 8.5 METS. 3. Heart rate response to exercise is normal. Blood pressure response to exercise is elevated. 4. Exercise capacity is normal average for age. 5. With exercise, there are no ST-T segment changes suggestive of ischemia. No sustained ventricular arrhythmias are seen. 6. Exercise stress EKG is negative for ischemia. However, there are EKG artifacts in peak exercise that may reduce the sensitivity of the test. 7. Silveira treadmill score is 7 (low risk). 8. Adequate level of stress achieved. [id number] Dominick Vogel MD Electronically signed on 08/10/2025 at 10:40:05 AM Final IMPRESSION: Summary: 1. Baseline EKG showing normal sinus rhythm with no resting ST-T segment changes. 2. Patient exercised for 7 minutes and 00 seconds achieving 8.5 METS. 3. Heart rate response to exercise is normal. Blood pressure response to exercise is elevated. 4. Exercise capacity is normal average for age. 5. With exercise, there are no ST-T segment changes suggestive of ischemia. No sustained ventricular arrhythmias are seen. 6. Exercise stress EKG is negative for ischemia. However, there are EKG artifacts in peak exercise that may reduce the sensitivity of the test. 7. Silveira treadmill score is 7 (low risk). 8. Adequate level of stress achieved. [facility] Work Phone: Cardiac stress study Procedu reOrdered By: Dominick Vogel on 08-10-2025 [facility] Work Phone: STRESS TEST ONLYon [place] [address] [phone], Exercise Stress Test Patient Name: DELONTE BALTAZAR Ordering Provider: [id number] HARISH FLOREZ Study Date: 08/10/2025 Reading Physician: [id number] Dominick Vogel MD MRN/PID: [id number] Supervising Physician: [id number] Dominick Vogel MD Fellow: Date of /Age: 6 1985 / 40 years Fellow: Gender: M Nurse: N/A Admit Date: 08/10/2025 Toxicology Teacher: Sarah Cullen Admission Status: Outpatient Vice President Consulting Services: N/A Height: 188.00 cm Technologist: Weight: 160.00 kg Additional Staff: BSA: 2.77 m2 BMI: 45.27 kg/m2 Patient Location: [facility] Stress Lab Study Type: STRESS TEST ONLY Diagnosis/ICD: Chest pain, unspecified-R07.9 Indication: Chest Pain CPT Codes: Stress Test Interpretation-98304; Stress Test Supervision-[id number] Falls Risk: Low: Patient has low risk for sustaining a fall; environmental safety interventions in place. Study Details: Correct procedure and correct patient verified verbally and with ID Band checked. Patient History: Chest pain. Allergies: None. Smoker: Former. Diabetes: No. BMI: Obese >30. Medications: PANTOPRAZOLE. The patient did not take medications as prescribed. Patient Performance: The patient exercised to stage III on a Edwin protocol for 7 minutes and 00 seconds, achieving 8.5 METS. The peak heart rate achieved was 169 bpm, which was 93 % of the age predicted target heart rate of 181 bpm. The resting blood pressure was 143/95 mmHg with a heart rate of 86 bpm. The standing blood pressure was 158/107 mmHg with a heart rate of 88 bpm. The patient developed shortness of breath during the stress exam. The symptoms resolved with rest 6 minutes into recovery. The blood pressure response was hypertensive. The test was terminated due to: MPHR >85%. Baseline ECG: Resting ECG showed normal sinus rhythm with normal tracing. Stress ECG: Stress ECG showed sinus tachycardia. Stress Stage Data: + +---+ ------+-------+ HR Sys BP Andrade BP + +---+ ------+-------+ Baseline Resting 86 143 95 + +---+ ------+-------+ Baseline Standing 88 158 107 + +---+ ------+-------+ Stage I 130 182 62 + +---+ ------+-------+ Stage II 157 232 10 + +---+ ------+-------+ Stage III 166 + +---+ ------+-------+ Recovery ECG: Recovery ECG showed sinus tachycardia. The heart rate recovery was normal. + +---+----- -+-------+ HR Sys BP Andrade BP + +---+----- -+-------+ Recovery I 144 + +---+----- -+-------+ Recovery II 112 + +---+----- -+-------+ Recovery III 111 236 109 + +---+----- -+-------+ Recovery IV 106 190 94 + +---+----- -+-------+ Recovery V 105 178 90 + +---+----- -+-------+ Recovery 104 + +---+----- -+-------+ Summary: 1. Baseline EKG showing normal sinus rhythm with no resting ST-T segment changes. 2. Patient exercised for 7 minutes and 00 seconds achieving 8.5 METS. 3. Heart rate response to exercise is normal. Blood pressure response to exercise is elevated. 4. Exercise capacity is normal average for age. 5. With exercise, there are no ST-T segment changes suggestive of ischemia. No sustained ventricular arrhythmias are seen. 6. Exercise stress EKG is negative for ischemia. However, there are EKG artifacts in peak exercise that may reduce the sensitivity of the test. 7. Silveira treadmill score is 7 (low risk). 8. Adequate level of stress achieved. [id number] Dominick Vogel MD Electronically signed on 08/10/2025 at 10:40:05 AM Final Summary: 1. Baseline EKG showing normal sinus rhythm with no resting ST-T segment changes. 2. Patient exercised for 7 minutes and 00 seconds achieving 8.5 METS. 3. Heart rate response to exercise is normal. Blood pressure response to exercise is elevated. 4. Exercise capacity is normal average for age. 5. With exercise, there are no ST-T segment changes suggestive of ischemia. No sustained ventricular arrhythmias are seen. 6. Exercise stress EKG is negative for ischemia. However, there are EKG artifacts in peak exercise that may reduce the sensitivity of the test. 7. Silveira treadmill score is 7 (low risk). 8. Adequate level of stress achieved. [facility] CT ABDOMEN PELVIS W IV CONTR Fahad 06-27-2025 CT ABDOMEN PELVIS W IV CONTRAST Interpreted By: Patricia Carroll, STUDY: CT ABDOMEN PELVIS W IV CONTRAST; 06/27/2025 11:25 am INDICATION: Signs/Symptoms:Right upper quadrant abdominal pain poorly visualized gallbladder on ultrasound. ,Z87.19 Personal history of other diseases of the digestive system COMPARISON: CT ABDOMEN AND PELVIS W IV CONTRAST 05/12/2023 ACCESSION NUMBER(S): [id number] ORDERING CLINICIAN: HARISH FLOREZ TECHNIQUE: Contiguous axial images of the abdomen and pelvis were obtained after the intravenous administration of iodinated contrast. Coronal and sagittal reformatted images were reconstructed from the axial data. 72 ML of Omnipaque 350 was administered intravenously without immediate complication. FINDINGS: LOWER CHEST: No acute abnormality. ABDOMEN/PELVIS: ABDOMINAL WALL: Unchanged small fat containing umbilical hernia. LIVER: Stable hepatomegaly measuring 21.6 cm in craniocaudal dimension. Normal liver enhancement. No focal liver lesions. BILE DUCTS: No significant intrahepatic or extrahepatic dilatation. GALLBLADDER: The gallbladder is decompressed and limited for evaluation. No surrounding stranding or pericholecystic fluid. PANCREAS: No significant abnormality. Resolved peripancreatic fluid collection compared to 05/12/2023. SPLEEN: No significant abnormality. ADRENALS: No significant abnormality. KIDNEYS, URETERS, BLADDER: Left parapelvic and right renal cortical cyst is unchanged. No nephroureterolithiasis or hydroureteronephrosis. The bladder wall is normal thickness for degree of distention. REPRODUCTIVE ORGANS: No significant abnormality. VESSELS: Mild atherosclerosis calcification of the abdominal aorta and its branching vessels without aneurysmal dilatation. The IVC is normal in caliber RETROPERITONEUM/LYMPH NODES: No lymphadenopathy. No acute retroperitoneal abnormality. BOWEL/MESENTERY/PERITON EUM: The stomach is unremarkable for degree of distension. No inflammatory bowel wall thickening or dilatation. Normal appendix. No ascites, free air, or fluid collection. MUSCULOSKELETAL: No acute osseous abnormality. Mild multilevel discovertebral degeneration. IMPRESSION: 1. No acute abdominopelvic findings. 2. The gallbladder is decompressed limited for evaluation without secondary findings to suggest acute cholecystitis. 3. Stable hepatomegaly. 4. Additional stable chronic and incidental findings as described above. MACRO: None. Signed by: Patricia Carroll 06/28/2025 11:08 PM Dictation workstation: [id number] [facility] CREATININEon 06-24-2025 Creatinine [Mass/Vol] 0.75 mg/dL Normal 0.60-1.26 [facility] Comment on above: Order Comment: FASTI NG:YES FASTING: YES Performed By: #### 3 75 #### [facility] [address], [address] [place] [address] Abatement Worker: Javier Cummins MD GFR/1.73 sq M.predicted among non-blacks MDRD (S/P/Bld) [Vol rate/Area] 118 mL/min/{1.73_m2} Normal > OR = 60 [employer] Comment on above: Order Comment: FASTI NG:YES FASTING: YES Performed By: #### 3 75 #### [facility] [address], [address] [place] [address] Abatement Worker: Javier Cummins MD US Abdomen RUQon 05-25-2025 Hepatomegaly and hepatic steatosis. Nonobstructing right renal calculus. Nonvisualization of the gallbladder despite patient being NPO. No biliary ductal dilatation. MACRO: None. Signed by: Adrianna Helms 05/25/2025 5:39 PM Dictation workstation: [id number] [facility] MMODAL Interpreted By: Adrianna Helms, STUDY: US GALLBLADDER; 5:36 pm INDICATION: Right upper quadrant pain for 1 year COMPARISON: 01/22/2023 ACCESSION NUMBER(S): [id number] ORDERING CLINICIAN: HARISH FLOREZ TECHNIQUE: Limited abdominal ultrasound of the right upper quadrant was performed utilizing marshall scale imaging. The examination is limited by body habitus of the patient. FINDINGS: Liver: Hepatomegaly is seen with the liver measuring 19.8 cm in superior to inferior dimension. There is increased echogenicity of the hepatic parenchyma with liver dense and difficult to penetrate. No space-occupying hepatic lesion or obvious intrahepatic biliary ductal dilatation is seen. There is hepatopetal flow within the main portal vein. Gallbladder: The gallbladder is not visualized. Sonographic Pitt's sign: Not applicable Pancreas: The pancreas is obscured by body habitus and overlying bowel gas. CBD: 0.4 cm Right kidney measures 13.8 cm in length without hydronephrosis. There is a 4-5 mm echogenic focus in the interpolar region of the right kidney with associated twinkle artifact consistent with a nonobstructing right renal calculus. MMODAL Adrianna Helms MD - 05/25/2025 Interpreted By: Adrianna Helms, STUDY: US GALLBLADDER; 5:36 pm INDICATION: Right upper quadrant pain for 1 year COMPARISON: 01/22/2023 ACCESSION NUMBER(S): [id number] ORDERING CLINICIAN: HARISH FLOREZ TECHNIQUE: Limited abdominal ultrasound of the right upper quadrant was performed utilizing marshall scale imaging. The examination is limited by body habitus of the patient. FINDINGS: Liver: Hepatomegaly is seen with the liver measuring 19.8 cm in superior to inferior dimension. There is increased echogenicity of the hepatic parenchyma with liver dense and difficult to penetrate. No space-occupying hepatic lesion or obvious intrahepatic biliary ductal dilatation is seen. There is hepatopetal flow within the main portal vein. Gallbladder: The gallbladder is not visualized. Sonographic Pitt's sign: Not applicable Pancreas: The pancreas is obscured by body habitus and overlying bowel gas. CBD: 0.4 cm Right kidney measures 13.8 cm in length without hydronephrosis. There is a 4-5 mm echogenic focus in the interpolar region of the right kidney with associated twinkle artifact consistent with a nonobstructing right renal calculus. IMPRESSION: Hepatomegaly and hepatic steatosis. Nonobstructing right renal calculus. Nonvisualization of the gallbladder despite patient being NPO. No biliary ductal dilatation. MACRO: None. Signed by: Adrianna Helms 05/25/2025 5:39 PM Dictation workstation: [id number] [facility] Work Phone: Radiology Study observation (narrative) [facility] Work Phone: US Abdomen RUQOrdered By: Abdiel Helms on 05-25-2025 [facility] Work Phone: US GALLBLADDERon 05-25-2025 US GALLBLADDER Interpreted By: Adrianna Helms, STUDY: US GALLBLADDER; 5:36 pm INDICATION: Right upper quadrant pain for 1 year COMPARISON: 01/22/2023 ACCESSION NUMBER(S): [id number] ORDERING CLINICIAN: HARISH FLOREZ TECHNIQUE: Limited abdominal ultrasound of the right upper quadrant was performed utilizing marshall scale imaging. The examination is limited by body habitus of the patient. FINDINGS: Liver: Hepatomegaly is seen with the liver measuring 19.8 cm in superior to inferior dimension. There is increased echogenicity of the hepatic parenchyma with liver dense and difficult to penetrate. No space-occupying hepatic lesion or obvious intrahepatic biliary ductal dilatation is seen. There is hepatopetal flow within the main portal vein. Gallbladder: The gallbladder is not visualized. Sonographic Pitt's sign: Not applicable Pancreas: The pancreas is obscured by body habitus and overlying bowel gas. CBD: 0.4 cm Right kidney measures 13.8 cm in length without hydronephrosis. There is a 4-5 mm echogenic focus in the interpolar region of the right kidney with associated twinkle artifact consistent with a nonobstructing right renal calculus. IMPRESSION: Hepatomegaly and hepatic steatosis. Nonobstructing right renal calculus. Nonvisualization of the gallbladder despite patient being NPO. No biliary ductal dilatation. MACRO: None. Signed by: Adrianna Helms 05/25/2025 5:39 PM Dictation workstation: [id number] [facility] 12 Lead EKGon 05-17-2025 12 Lead EKG [facility] Cardiovascular Services [address] [place] [address] 12 Lead EKG 05/17/25 1505 MR#: [id number] Acct: [id number] Name: DELONTE BALTAZAR Rep #: [id number] : 1985 39 From: Samantha Mejia MD Attending Dr: Status: DEP ER Ordering Dr: Mauricio Holt MD Date: 05/17/25 Location: ED Sex: M C Admitted: Test Reason : Blood Pressure : */* mmHG Vent. Rate : 113 BPM Atrial Rate : 113 BPM P-R Int : 156 ms QRS Dur : 86 ms QT Int : 326 ms P-R-T Axes : 52 16 9 degrees QTcB Int : 447 ms Sinus tachycardia Cannot rule out Inferior infarct , age undetermined Abnormal ECG Confirmed by MICHAEL BOWSER, SONJA ([id number]), assistant editor EUGENIA ARNOLD ([id number]) on 05/19/2025 1:02:40 PM Referred By: Confirmed By: SONJA MEJIA MD 05/19/25 1302 Date Samantha Mejia MD CC: Dr. Mauricio Holt MD; HALLE JENNIFER Signed Normal [facility] Absolute lymphocyte countOrd ered By: Mauricio Holt on 05-17-2025 Lymphocytes Auto (Unsp spec) [#/Vol] 2.61 10*3/uL 0.83-4.51 [facility] Absolute neutrophil countOrd ered By: Mauriciojulio Holt on 05-17-2025 Neutrophils (Bld) [#/Vol] 8.2 10*3/uL High 2.0-7.7 [facility] Anion gap in Serum or Plasma Ordered By: Mauricio Holt on 05-17-2025 Anion gap [Moles/Vol] 14 mmol/L 5- [facility] Automated lymphocyte count a s percentage of total leukocytesOrdered By: Mauriciojulio Holt on 05-17-2025 Lymphocytes/100 WBC Auto (Unsp spec) 22.5 % - [facility] BUN/creatinine ratioOrdered By: Mauriciojulio Hlot on 05-17-2025 Urea nitrogen/Creatinine [Mass ratio] 17.4 mg/mg - [facility] Basic Metabolic Profile (BMP )on 05-17-2025 BUN/CRE 17.4 RATIO Normal - [facility] Comment on above: Performed By: #### L 3410.2710, L3410.2920, L3200.1400, L3410.2450 #### [facility] [address] [place], [address] Calcium [Mass/Vol] 9.9 mg/dL Normal 7.6-11.0 [facility] Comment on above: Performed By: #### L 3410.2710, L3410.2920, L3200.1400, L3410.2450 #### [facility] [address] [place], [address] Chloride [Moles/Vol] 100 mmol/L Normal 98-108 [facility] Comment on above: Performed By: #### L 3410.2710, L3410.2920, L3200.1400, L3410.2450 #### [facility] [address] [place], [address] CO2 [Moles/Vol] 22.5 mmol/L Normal 21.0-32.0 [facility] Comment on above: Performed By: #### L 3410.2710, L3410.2920, L3200.1400, L3410.2450 #### [facility] [address] [place], [address] Creatinine [Mass/Vol] 0.83 mg/dL Normal 0.70-1.20 [facility] Comment on above: Performed By: #### L 3410.2710, L3410.2920, L3200.1400, L3410.2450 #### [facility] [address] [place], [address] GAP 14 Normal 5-15 [facility] Comment on above: Performed By: #### L 3410.2710, L3410.2920, L3200.1400, L3410.2450 #### [facility] [address] [place], [address] GFR/1.73 sq M.predicted among non-blacks MDRD (S/P/Bld) [Vol rate/Area] 115 mL/min/{1.73_m2} Normal >60 [facility] Comment on above: Result Comment: mL/m in/1.73m2 CKD-EPI Creatinine Equation (2020) Performed By: #### L 3410.2710, L3410.2920, L3200.1400, L3410.2450 #### [facility] [address] [place], [address] Glucose [Mass/Vol] 93 mg/dL Normal 70-99 [facility] Comment on above: Performed By: #### L 3410.2710, L3410.2920, L3200.1400, L3410.2450 #### [facility] [address] [place], [address] Potassium [Moles/Vol] 3.9 mmol/L Normal 3.3-5.1 [facility] Comment on above: Result Comment: Hemo lysis present, Results??could be affected. ?? Performed By: #### L 3410.2710, L3410.2920, L3200.1400, L3410.2450 #### [facility] [address] [place], [address] Sodium [Moles/Vol] 136 mmol/L Normal 133-145 [facility] Comment on above: Performed By: #### L 3410.2710, L3410.2920, L3200.1400, L3410.2450 #### [facility] [address] [place], [address] Urea nitrogen [Mass/Vol] 15 mg/dL Normal 4-19 [facility] Comment on above: Performed By: #### L 3410.2710, L3410.2920, L3200.1400, L3410.2450 #### [facility] [address] [place], [address] Basophil percentageOrdered B y: Mauricio Holt on 05-17-2025 Basophils/100 WBC (Bld) 0.7 % 0-1 [facility] CBC W/Diff, Automatedon 04-30 Absolute Lymph 2.61 X10 3/uL Normal 0.83-4.51 [facility] Comment on above: Performed By: #### L 3410.2710, L3410.2920, L3200.1400, L3410.2450 #### [facility] [address] [place], [address] Absolute Neut 8.2 X10 3/uL High 2.0-7.7 [facility] Comment on above: Performed By: #### L 3410.2710, L3410.2920, L3200.1400, L3410.2450 #### [facility] [address] [place], [address] Basophils/100 WBC (Bld) 0.7 % Normal 0-1 [facility] Comment on above: Performed By: #### L 3410.2710, L3410.2920, L3200.1400, L3410.2450 #### [facility] [address] [place], [address] Eosinophils/100 WBC (Bld) 0.8 % Normal 0-5 [facility] Comment on above: Performed By: #### L 3410.2710, L3410.2920, L3200.1400, L3410.2450 #### [facility] [address] [place], [address] Erythrocyte distribution width (RBC) [Ratio] 13.3 % Normal 11.6-14.6 [facility] Comment on above: Performed By: #### L 3410.2710, L3410.2920, L3200.1400, L3410.2450 #### [facility] [address] [place], [address] Hematocrit (Bld) [Volume fraction] 44.9 % Normal 40-54 [facility] Comment on above: Performed By: #### L 3410.2710, L3410.2920, L3200.1400, L3410.2450 #### [facility] [address] [place], [address] Hemoglobin (Bld) [Mass/Vol] 15.5 g/dL Normal 13.0-16.5 [facility] Comment on above: Performed By: #### L 3410.2710, L3410.2920, L3200.1400, L3410.2450 #### [facility] [address] [place], [address] IG% 0.800 Normal 0.0-0.9 [facility] Comment on above: Result Comment: IG% - Immature Granulocytes (promyelocytes, myelocytes and metamyelocytes) > 1% indicates that a LEFT SHIFT is Present. Performed By: #### L 3410.2710, L3410.2920, L3200.1400, L3410.2450 #### [facility] [address] [place], [address] Lymphocytes/100 WBC (Bld) 22.5 % Normal 19-41 [facility] Comment on above: Performed By: #### L 3410.2710, L3410.2920, L3200.1400, L3410.2450 #### [facility] [address] [place], [address] MCH (RBC) [Entitic mass] 27.9 pg Normal 27.0-32.0 [facility] Comment on above: Performed By: #### L 3410.2710, L3410.2920, L3200.1400, L3410.2450 #### [facility] [address] [place], [address] MCHC (RBC) [Mass/Vol] 34.5 g/dL Normal 32-36 [facility] Comment on above: Performed By: #### L 3410.2710, L3410.2920, L3200.1400, L3410.2450 #### [facility] [address] [place], [address] MCV (RBC) [Entitic vol] 80.9 fL Normal 80-94 [facility] Comment on above: Performed By: #### L 3410.2710, L3410.2920, L3200.1400, L3410.2450 #### [facility] [address] [place], [address] Monocytes/100 WBC (Bld) 4.7 % Normal 0-10 [facility] Comment on above: Performed By: #### L 3410.2710, L3410.2920, L3200.1400, L3410.2450 #### [facility] [address] [place], [address] Neutrophils/100 WBC (Bld) 70.5 % High 47-70 [facility] Comment on above: Performed By: #### L 3410.2710, L3410.2920, L3200.1400, L3410.2450 #### [facility] [address] [place], [address] Nucleated RBC (Bld) [#/Vol] 0 10*3/uL Normal 0-5 [facility] Comment on above: Performed By: #### L 3410.2710, L3410.2920, L3200.1400, L3410.2450 #### [facility] [address] [place], [address] Platelet mean volume (Bld) [Entitic vol] 9.2 fL Normal 6.2-12.0 [facility] Comment on above: Performed By: #### L 3410.2710, L3410.2920, L3200.1400, L3410.2450 #### [facility] [address] [place], [address] Platelets (Bld) [#/Vol] 328 10*3/uL Normal 150-450 [facility] Comment on above: Performed By: #### L 3410.2710, L3410.2920, L3200.1400, L3410.2450 #### [facility] [address] [place], [address] RBC (Bld) [#/Vol] 5.55 10*6/uL Normal 4.6-6.2 [facility] Comment on above: Performed By: #### L 3410.2710, L3410.2920, L3200.1400, L3410.2450 #### [facility] [address] [place], [address] RDW SD 38.8 fl Normal 35.1-43.9 [facility] Comment on above: Performed By: #### L 3410.2710, L3410.2920, L3200.1400, L3410.2450 #### [facility] [address] [place], [address] WBC (Bld) [#/Vol] 11.6 10*3/uL High 4.4-11.0 [facility] Comment on above: Performed By: #### L 3410.2710, L3410.2920, L3200.1400, L3410.2450 #### [facility] [address] [place], [address] Carbon dioxide, total [Moles /volume] in Central venous bloodOrdered By: Mauricio Holt on 05-17-2025 CO2 [Moles/Vol] 22.5 mmol/L 21.0-32.0 [facility] Chest 1 View (Portable)on Chest 1 View (Portable) [facility] Imaging Services [address] [place] [address] Chest 1 View (Portable) MR#: [id number] Acct: [id number] Name: DELONTE BALTAZAR Rep #: [id number] : 1985 M 39 From: Elian Chamberlain PCP: HALLE RODRIGUEZ Status: REG ER Study: Chest 1 View (Portable) Date of Exam: 05/17/25 Exam# [id number] Ordering Dr: Mauricio Holt MD PROCEDURE: CHEST 1 VIEW (PORTABLE) 05/17/2025 REASON FOR EXAM: CHEST PAIN TECHNIQUE: Frontal view of the chest. COMPARISON: None FINDINGS: Mild pulmonary vascular congestion. No focal consolidation. Bibasilar subsegmental atelectasis. No pleural effusion or pneumothorax. Cardiac silhouette is within normal limits. RAD/Chest 1 View (Portable) IMPRESSION: Mild pulmonary vascular congestion. No focal consolidation. Bibasilar subsegmental atelectasis. Reading Location: [facility] CC: Dr. Mauricio Holt MD; HALLE RODRIGUEZ Cattle Inspector: Signed Normal [facility] Chloride assayOrdered By: Dylon Holt on 05-17-2025 Chloride [Moles/Vol] 100 mmol/L 98-108 [facility] Emergency Department Summary on 05-17-2025 Emergency Department Summary [facility] Medical Records Department [address] [place] [address] Emergency Department Summary 05/17/25 MR#: [id number] Acct: [id number] Name: DELONTE BALTAZAR Rep #: [id number] : 1985 39 From: Mauricio Holt MD PCP: HALLE RODRIGUEZ Status:REG ER Location: ED HPI History of Present Illness Chief Complaint: Chest Other Detail of Chief Complaint: Right-sided chest pain and shoulder pain Informant: patient Onset/Context/Timing Onset: Today (1 hour prior to presentation while driving) and - (Has had intermittent episodes for some time. He has been seen twice at [facility] and told this is due to an infection.) Activity at onset: sudden and rest Timing: Intermittent Quality: Positive for Burning Location: Right Parasternal Current Severity: Mild Maximum Severity: Moderate Worsened By: Nothing Relieved By: Nothing Associated Symptoms: Negative for Nausea, Vomiting, Diaphoresis, Dyspnea, Cough, Fever, Lightheadedness, Acid Reflux or Palpitations Narrative Narrative: Patient is a 39-year-old male. He is a former smoker. States he is gained a lot of weight since he quit smoking a couple years ago. He has had intermittent chest pain. Describes today's as burning. Concerned because it radiates to his right shoulder. He had no associated symptoms. This occurred while at rest. He denies history of peptic ulcer disease, hiatal hernia reflux or sour eructation. He denies black or maroon-colored stool. He denies history of VTE. He has no risk factors for VTE. He denies leg pain, swelling discoloration. He does have problems with sinuses. He states he was seen by ENT here in [place] and they recommended surgical procedure. He now resides near [place] and saw certified respiratory therapist in [place] and he was informed that he does not need surgery. He apparently does have history of allergies. Prior Similar Symptoms: Yes and - (Told there was an infection) Recent Illness/Hospitalization : No CVD Risk Factors: Negative for Hypertension, Diabetes, Hypercholesterolemia, Family History 1' or Smoking (Former. Smoked for approximate 15 years.) PE Risk Factors: Negative for Recent Travel/Surgery, Recent Immobilization, Prior DVT or PE, Cancer or OCP + Smoking + >/=35 TAD Risk Factors: Negative for Marfan's Syndrome, Hypertension or Family History PFSH PFSH Medical History no medical history no medical history Allergy/AdvReac Type Severity Reaction Status Date / Time No Known Allergies Allergy Verified 05/17/25 15:00 Social History (Updated 05/17/25 @ 20:[address] Mauricio Holt MD) household members: spouse Smoking Status: Never smoker ROS ROS ED Constitutional Constitutional ED: Denies chills, fever(s) or subjective Eyes Eyes: Reports none ENT ENT ED: Reports rhinorrhea; Denies ear pain or sore throat Cardiovascular Cardiovascular: Reports as per HPI; Denies orthopnea or paroxysmal nocturnal dyspnea Respiratory/Chest Respiratory/Chest: Denies cough, dyspnea, dyspnea on exertion, orthopnea or paroxysmal nocturnal dyspnea Gastrointestinal Gastrointestinal: Denies abdominal pain, melena, nausea or vomiting Musculoskeletal Musculoskeletal: Denies arthralgias, back pain or myalgias Hematologic/Lymphatic Hematologic/Lymphatic: Denies easy bleeding or easy bruising EXAM Physical Exam Const Vital Signs: 05/17/25 14:58 05/17/25 16:01 05/17/25 17:00 Temperature 98.3 F Temperature Source Oral Pulse Rate 117 H 103 H 103 H Respiratory Rate 18 19 H Blood Pressure 187/116 H 194/91 H 171/111 H Blood Pressure Mean 139 125 131 Pulse Ox 100 100 97 Oxygen Delivery Method Room Air Room Air 05/17/25 17:01 05/17/25 18:00 05/17/25 19:24 Temperature Temperature Source Pulse Rate 104 H Respiratory Rate 14 Blood Pressure 158/111 H 162/106 H Blood Pressure Mean 126 124 Pulse Ox 97 Oxygen Delivery Method Room Air Room Air 05/17/25 20:26 Temperature Temperature Source Pulse Rate Respiratory Rate Blood Pressure 153/104 H Blood Pressure Mean 120 Pulse Ox Oxygen Delivery Method Positive well nourished and well developed Constitutional Narrative: BMI is 45.8. Patient appears no distress. Blood pressure is elevated. He states a week or 2 ago his blood pressure was 120 systolic. General Appearance ED: well developed; Negative for pallor HEENT normocephalic and atraumatic Eyes PERRL and EOMs intact bilaterally General Eye ED: Negative for pale conjunctiva or scleral icterus Neck Neck Narrative: Unable to assess for JVD based on body habitus. Resp clear to auscultation bilaterally Cardio regular rate, regular rhythm, S1 normal heart sound, S2 normal heart sound and no murmurs GI normal to inspection, nondistended, normoactive bowel sounds, soft to palpati (more content not included)... Normal [facility] Eosinophil percentageOrdered By: Mauricio Holt on 05-17-2025 Eosinophils/100 WBC (Bld) 0.8 % 0-5 [facility] Erythrocyte distribution wid th ratioOrdered By: Mauriciojulio Holt on 05-17-2025 Erythrocyte distribution width (RBC) [Ratio] 13.3 % 11.6-14.6 [facility] Erythrocyte distribution wid th standard deviationOrdered By: Mauriciojulio Holt on 05-17-2025 Erythrocyte distribution width (RBC) [Ratio] 38.8 fl 35.1-43.9 [facility] Glomerular filtration rate ( GFR) estimation/1.73 sq m using serum, plasma, or whole bOrdered By: Mauricio Holt on 05-17-2025 GFR/1.73 sq M.predicted among non-blacks MDRD (S/P/Bld) [Vol rate/Area] 115 mL/min/{1.73_m2} >60 [facility] Comment on above: mL/min/1.73m2 CKD-EP I Creatinine Equation (2020) Hematocrit Auto (Bld) [Volum e fraction]Ordered By: Mauricio Holt on 05-17-2025 Hematocrit (Bld) [Volume fraction] 44.9 % 40-54 [facility] Hemoglobin measurementOrdere d By: Mauricio Holt on 05-17-2025 Hemoglobin (Bld) [Mass/Vol] 15.5 g/dL 13.0-16.5 [facility] Immature granulocytes/100 WB C Auto (Bld)Ordered By: Mauricio Holt on 05-17-2025 Immature granulocytes/100 WBC (Bld) 0.800 % 0.0-0.9 [facility] Comment on above: IG% - Immature Granu locytes (promyelocytes, myelocytes and metamyelocytes) > 1% indicates that a LEFT SHIFT is Present. L499.0042on 05-17-2025 Trop T High Sen < 6 Normal <=22 [facility] Comment on above: Performed By: #### L 3410.2710, L3410.2920, L3200.1400, L3410.2450 #### [facility] [address] [place], [address] L499.0043on 05-17-2025 Trop T High Sen < 6 Normal <=22 [facility] Comment on above: Performed By: #### L 3410.2710, L3410.2920, L3200.1400, L3410.2450 #### [facility] [address] [place], [address] L501.4021on 05-17-2025 Trop T High Sen < 6 Normal <=22 [facility] Comment on above: Performed By: #### L 3410.2710, L3410.2920, L3200.1400, L3410.2450 #### [facility] [address] [place], [address] MCV (mean corpuscular volume ) determinationOrdered By: Mauricio Holt on 05-17-2025 MCV (RBC) [Entitic vol] 80.9 fL 80-94 [facility] Mean corpuscular hemoglobin (MCH) determinationOrdered By: Mauricio Holt on 05-17-2025 MCH (RBC) [Entitic mass] 27.9 pg 27.0-32.0 [facility] Mean corpuscular hemoglobin concentration (MCHC) determinationOrdered By: Mauricio Holt on 05-17-2025 MCHC (RBC) [Mass/Vol] 34.5 g/dL 32-36 [facility] Mean platelet volume determi nationOrdered By: Mauricio Holt on 05-17-2025 Platelet mean volume (Bld) [Entitic vol] 9.2 fL 6.2-12.0 [facility] Monocyte percentageOrdered B y: Mauricio Holt on 05-17-2025 Monocytes/100 WBC (Bld) 4.7 % 0-10 [facility] Neutrophil percentageOrdered By: Mauriciojulio Holt on 05-17-2025 Neutrophils/100 WBC (Bld) 70.5 % High 47-70 [facility] Nucleated red blood cell per centageOrdered By: Mauricio Holt on 05-17-2025 Nucleated RBC/100 WBC (Bld) [Ratio] 0 % 0-5 [facility] Platelet countOrdered By: Dylon julio Holt on 05-17-2025 Platelets (Bld) [#/Vol] 328 10*3/uL 150-450 [facility] Potassium measurement (mass/ volume)Ordered By: Mauriciojulio Holt on 05-17-2025 Potassium (Unsp spec) [Mass/Vol] 3.9 mmol/L 3.3-5.1 [facility] Comment on above: Hemolysis present, R esults could be affected. RBC Auto (Bld) [#/Vol]Ordere d By: Mauricio Holt on 05-17-2025 RBC (Bld) [#/Vol] 5.55 10*6/uL 4.6-6.2 [facility] Serum creatinine measurement (mass/volume)Ordered By: Mauricio Holt on 05-17-2025 Creatinine [Mass/Vol] 0.83 mg/dL 0.70-1.20 [facility] Serum glucose measurement (m ass/volume)Ordered By: Mauricio Holt on 05-17-2025 Glucose [Mass/Vol] 93 mg/dL 70-99 [facility] Serum or plasma calcium thu urement (mass/volume)Ordered By: Mauricio Holt on 05-17-2025 Calcium [Mass/Vol] 9.9 mg/dL 7.6-11.0 [facility] Serum or plasma urea nitroge n measurement (mass/volume)Ordered By: Mauricio Holt on 05-17-2025 Urea nitrogen [Mass/Vol] 15 mg/dL 4-19 [facility] Sodium levelOrdered By: Mauricio Holt on 05-17-2025 Sodium [Moles/Vol] 136 mmol/L 133-145 [facility] Troponin T.cardiac [Mass/vol ume] in Serum or Plasma by High sensitivity methodOrdered By: Mauricio Holt on 05-17-2025 Troponin T.cardiac High sensitivity method [Mass/Vol] < 6 ng/L <22 [facility] Troponin T.cardiac High sensitivity method [Mass/Vol] < 6 ng/L <22 [facility] White blood cell (WBC) count Ordered By: Mauricio Holt on 05-17-2025 WBC (Bld) [#/Vol] 11.6 10*3/uL High 4.4-11.0 [facility] Endomysial Antibody IgAon ENDOMYSIAL IGA Negative Normal Negative [facility] Comment on above: Order Comment: N Performed By: #### L 3410.2710, L3410.2920, L3200.1400, L3410.6334 #### [facility] [address] [place], [address] Gliadin AB Prof IGA, IGGon 1 12-03-2023 ANTIGLIADIN IGA 3 units Normal 0-19 [facility] Comment on above: Order Comment: N Result Comment: Nega tive 0 - 19 Weak Positive 20 - 30 Moderate to Strong Positive >30 Performed By: #### L 3410.2710, L3410.2920, L3200.1400, L3410.2450 #### [facility] [address] [place], [address] ANTIGLIADIN IGG 2 units Normal 0-19 [facility] Comment on above: Order Comment: N Result Comment: Nega tive 0 - 19 Weak Positive 20 - 30 Moderate to Strong Positive >30 Performed By: #### L 3410.2710, L3410.2920, L3200.1400, L3410.2450 #### [facility] [address] [place], [place], [id number] Immunoglobulin Aon 4 IMMUNOGLOB A QN 364 mg/dL Normal 90-386 [facility] Comment on above: Order Comment: N Result Comment: Perf ormed at: [address] [id number] [employer]: Gil De Souza PhD, Phone: [phone] Performed By: #### L 3410.2710, L3410.2920, L3200.1400, L3410.2450 #### [facility] [address] [place], [place], [id number] t-Transglutaminase IgAon tTG IGA <2 Normal 0-3 [facility] Comment on above: Order Comment: N Result Comment: Nega tive 0 - 3 Weak Positive 4 - 10 Positive >10 Tissue Transglutaminase (tTG) has been identified as the endomysial antigen. Studies have demonstr- ated that endomysial IgA antibodies have over 99% specificity for gluten sensitive enteropathy. Performed By: #### L 3410.2710, L3410.2920, L3200.1400, L3410.2450 #### [facility] [address] [place], [place], [id number] CCP IgG Antibodieson 09-26- 024 CCP IgG Ab. 5 units Normal 0-19 [facility] Comment on above: Result Comment: Nega tive <20 Weak positive 20 - 39 Moderate positive 40 - 59 Strong positive >59 Performed at: [address] [id number] [employer]: Gil De Souza PhD, Phone: [phone] Performed at: [address] [place], [place] [id number] [employer]: Jonna Odonnell PhD, Phone: [phone] Performed By: #### L 3410.2710, L3410.2920, L3200.1400, L3410.2450 #### [facility] [address] [place], [address] HLA B27on 09-26-2024 HLA B27 Negative Normal . [facility] Comment on above: Result Comment: HLA- B*27 Negative B27 allele interpretation for all loci based on IMGT/HLA database version 3.51.0 This test was developed and its performance characteristics determined by [employer]. It has not been cleared or approved by the Food and Drug Administration. [facility] CLIA ID Number [id number] This test was performed using Polymerase Chain Reaction (PCR) and Sequence Specific Oligonucleotide Probes (SSOP) technique. Sequence Based Typing (SBT) may be used as a supplemental method when necessary. If you have questions, please call [employer] service at or email at [email or web address]. Performed By: #### L 3410.2710, L3410.2920, L3200.1400, L3410.2450 #### [facility] [address] [place], [address] Quantiferon TB-Gold+on 09-26 QFT MITOGEN JASON > 10.00 Normal . [facility] Comment on above: Performed By: #### L 3410.2710, L3410.2920, L3200.1400, L3410.2450 #### [facility] [address] [place], [address] QFT NIL VALUE 0.02 IU/mL Normal . [facility] Comment on above: Performed By: #### L 3410.2710, L3410.2920, L3200.1400, L3410.2450 #### [facility] [address] [place], [address] QFT TB GOLD+ Comment Normal . [facility] Comment on above: Result Comment: Sammy tiFERON-TB Gold Plus is a qualitative indirect test for M tuberculosis infection (including disease) and is intended for use in conjunction with risk assessment, radiography, and other medical and diagnostic evaluations. The QuantiFERON-TB Gold Plus result is determined by subtracting the Nil value from either TB antigen (Ag) value. The Mitogen tube serves as a control for the test. Performed By: #### L 3410.2710, L3410.2920, L3200.1400, L3410.2450 #### [facility] [address] [place], [address] QFT TB POS CRIT Negative Normal Negative [facility] Comment on above: Result Comment: No r esponse to M tuberculosis antigens detected. Infection with M tuberculosis is unlikely, but high risk individuals should be considered for additional testing (ATS/IDSA/CDC Clinical Practice Guidelines, 2017). The reference range is an Antigen minus Nil result of <0.35 IU/mL. The specimen received for QuantiFERON testing was incubated by the ordering institution. Specific procedures outlined in our Directory of Services and in the package insert for the QuantiFERON Gold (In Tube) test must be followed to enable for proper stimulation of cells for the production of interferon gamma. Chemiluminescence immunoassay methodology Performed By: #### L 3410.2710, L3410.2920, L3200.1400, L3410.2450 #### [facility] [address] [place], [address] QFT TB1+ AG JASON 0.03 IU/mL Normal . [facility] Comment on above: Performed By: #### L 3410.2710, L3410.2920, L3200.1400, L3410.2450 #### [facility] [address] [place], [address] QFT TB2+ AG JASON 0.04 IU/mL Normal . [facility] Comment on above: Performed By: #### L 3410.2710, L3410.2920, L3200.1400, L3410.2450 #### [facility] [address] [place], [address] CBC W/Diff, Automatedon 10-2 Absolute Lymph 3.22 X10 3/uL Normal 0.83-4.51 [facility] Comment on above: Performed By: #### L 3410.2710, L3410.2920, L3200.1400, L3410.2450 #### [facility] [address] [place], [address] Absolute Neut 5.7 X10 3/uL Normal 2.0-7.7 [facility] Comment on above: Performed By: #### L 3410.2710, L3410.2920, L3200.1400, L3410.2450 #### [facility] [address] [place], [address] Basophils/100 WBC (Bld) 0.5 % Normal 0-1 [facility] Comment on above: Performed By: #### L 3410.2710, L3410.2920, L3200.1400, L3410.2450 #### [facility] [address] [place], [address] Eosinophils/100 WBC (Bld) 1.3 % Normal 0-5 [facility] Comment on above: Performed By: #### L 3410.2710, L3410.2920, L3200.1400, L3410.2450 #### [facility] [address] [place], [address] Erythrocyte distribution width (RBC) [Ratio] 13.4 % Normal 11.6-14.6 [facility] Comment on above: Performed By: #### L 3410.2710, L3410.2920, L3200.1400, L3410.2450 #### [facility] [address] [place], [address] Hematocrit (Bld) [Volume fraction] 44.7 % Normal 40-54 [facility] Comment on above: Performed By: #### L 3410.2710, L3410.2920, L3200.1400, L3410.2450 #### [facility] [address] [place], [address] Hemoglobin (Bld) [Mass/Vol] 14.4 g/dL Normal 13.0-16.5 [facility] Comment on above: Performed By: #### L 3410.2710, L3410.2920, L3200.1400, L3410.2450 #### [facility] [address] [place], [address] IG% 0.600 Normal 0.0-0.9 [facility] Comment on above: Result Comment: IG% - Immature Granulocytes (promyelocytes, myelocytes and metamyelocytes) > 1% indicates that a LEFT SHIFT is Present. Performed By: #### L 3410.2710, L3410.2920, L3200.1400, L3410.2450 #### [facility] [address] [place], [address] Lymphocytes/100 WBC (Bld) 33.2 % Normal 19-41 [facility] Comment on above: Performed By: #### L 3410.2710, L3410.2920, L3200.1400, L3410.2450 #### [facility] [address] [place], [address] MCH (RBC) [Entitic mass] 27.1 pg Normal 27.0-32.0 [facility] Comment on above: Performed By: #### L 3410.2710, L3410.2920, L3200.1400, L3410.2450 #### [facility] [address] [place], [address] MCHC (RBC) [Mass/Vol] 32.2 g/dL Normal 32-36 [facility] Comment on above: Performed By: #### L 3410.2710, L3410.2920, L3200.1400, L3410.2450 #### [facility] [address] [place], [address] MCV (RBC) [Entitic vol] 84.0 fL Normal 80-94 [facility] Comment on above: Performed By: #### L 3410.2710, L3410.2920, L3200.1400, L3410.2450 #### [facility] [address] [place], [address] Monocytes/100 WBC (Bld) 5.1 % Normal 0-10 [facility] Comment on above: Performed By: #### L 3410.2710, L3410.2920, L3200.1400, L3410.2450 #### [facility] [address] [place], [address] Neutrophils/100 WBC (Bld) 59.3 % Normal 47-70 [facility] Comment on above: Performed By: #### L 3410.2710, L3410.2920, L3200.1400, L3410.2450 #### [facility] [address] [place], [address] Nucleated RBC (Bld) [#/Vol] 0 10*3/uL Normal 0-5 [facility] Comment on above: Performed By: #### L 3410.2710, L3410.2920, L3200.1400, L3410.2450 #### [facility] [address] [place], [address] Platelet mean volume (Bld) [Entitic vol] 9.3 fL Normal 6.2-12.0 [facility] Comment on above: Performed By: #### L 3410.2710, L3410.2920, L3200.1400, L3410.2450 #### [facility] [address] [place], [address] Platelets (Bld) [#/Vol] 329 10*3/uL Normal 150-450 [facility] Comment on above: Performed By: #### L 3410.2710, L3410.2920, L3200.1400, L3410.2450 #### [facility] [address] [place], [address] RBC (Bld) [#/Vol] 5.32 10*6/uL Normal 4.6-6.2 [facility] Comment on above: Performed By: #### L 3410.2710, L3410.2920, L3200.1400, L3410.2450 #### [facility] [address] [place], [address] RDW SD 41.1 fl Normal 35.1-43.9 [facility] Comment on above: Performed By: #### L 3410.2710, L3410.2920, L3200.1400, L3410.2450 #### [facility] [address] [place], [address] WBC (Bld) [#/Vol] 9.7 10*3/uL Normal 4.4-11.0 [facility] Comment on above: Performed By: #### L 3410.2710, L3410.2920, L3200.1400, L3410.2450 #### [facility] [address] [place], [address] Comprehensive Metabolic [facility] 09-20-2024 Albumin [Mass/Vol] 4.1 g/dL Normal 3.2-5.0 [facility] Comment on above: Performed By: #### L 3410.2710, L3410.2920, L3200.1400, L3410.2450 #### [facility] [address] [place], [address] Albumin/Globulin [Mass ratio] 0.9 {ratio} Normal 0.9-2.4 [facility] Comment on above: Performed By: #### L 3410.2710, L3410.2920, L3200.1400, L3410.2450 #### [facility] [address] [place], [address] ALK P 100 U/L Normal 45-117 [facility] Comment on above: Performed By: #### L 3410.2710, L3410.2920, L3200.1400, L3410.2450 #### [facility] [address] [place], [address] ALT [Catalytic activity/Vol] 51 U/L Normal 16-61 [facility] Comment on above: Performed By: #### L 3410.2710, L3410.2920, L3200.1400, L3410.2450 #### [facility] [address] [place], [address] AST [Catalytic activity/Vol] 23 U/L Normal 15-37 [facility] Comment on above: Performed By: #### L 3410.2710, L3410.2920, L3200.1400, L3410.2450 #### [facility] [address] [place], [address] Bilirubin [Mass/Vol] 0.70 mg/dL Normal 0.20-1.00 [facility] Comment on above: Result Comment: For patients on eltrombopag therapy, use of Dimension [place] TBIL is not recommended. Performed By: #### L 3410.2710, L3410.2920, L3200.1400, L3410.2450 #### [facility] [address] [place], [address] BUN/CRE 18.1 RATIO Normal 10-20 [facility] Comment on above: Performed By: #### L 3410.2710, L3410.2920, L3200.1400, L3410.2450 #### [facility] [address] [place], [address] CA,Total 9.9 mg/dL Normal 8.5-10.1 [facility] Comment on above: Performed By: #### L 3410.2710, L3410.2920, L3200.1400, L3410.2450 #### [facility] [address] [place], [address] Chloride [Moles/Vol] 103 mmol/L Normal 98-107 [facility] Comment on above: Performed By: #### L 3410.2710, L3410.2920, L3200.1400, L3410.2450 #### [facility] [address] [place], [address] CO2 [Moles/Vol] 30.0 mmol/L Normal 21.0-32.0 [facility] Comment on above: Performed By: #### L 3410.2710, L3410.2920, L3200.1400, L3410.2450 #### [facility] [address] [place], [address] Creatinine [Mass/Vol] 0.77 mg/dL Normal 0.70-1.30 [facility] Comment on above: Result Comment: The validity of the calculated GFR GFRAA in patients over 70 years has not been determined. Clinical correlation is essential. Performed By: #### L 3410.2710, L3410.2920, L3200.1400, L3410.2450 #### [facility] [address] [place], [address] EST GFR - AA 144 mL/min Normal >60 [facility] Comment on above: Result Comment: Afri can [place]rain[place] GFR Calc Performed By: #### L 3410.2710, L3410.2920, L3200.1400, L3410.2450 #### [facility] [address] [place], [address] GAP 5 Normal 5-15 [facility] Comment on above: Performed By: #### L 3410.2710, L3410.2920, L3200.1400, L3410.2450 #### [facility] [address] [place], [address] GFR/1.73 sq M.predicted among non-blacks MDRD (S/P/Bld) [Vol rate/Area] 119 mL/min/{1.73_m2} Normal >60 [facility] Comment on above: Result Comment: Non- GFR Calc Performed By: #### L 3410.2710, L3410.2920, L3200.1400, L3410.2450 #### [facility] [address] [place], [address] Globulin (S) [Mass/Vol] 4.5 g/dL High 2.2-4.2 [facility] Comment on above: Performed By: #### L 3410.2710, L3410.2920, L3200.1400, L3410.2450 #### [facility] [address] [place], [address] Glucose [Mass/Vol] 98 mg/dL Normal 74-106 [facility] Comment on above: Performed By: #### L 3410.2710, L3410.2920, L3200.1400, L3410.2450 #### [facility] [address] [place], [address] Potassium [Moles/Vol] 4.2 mmol/L Normal 3.5-5.1 [facility] Comment on above: Performed By: #### L 3410.2710, L3410.2920, L3200.1400, L3410.2450 #### [facility] [address] [place], [address] Sodium [Moles/Vol] 138 mmol/L Normal 136-145 [facility] Comment on above: Performed By: #### L 3410.2710, L3410.2920, L3200.1400, L3410.2450 #### [facility] [address] [place], [address] T PROT 8.6 g/dL High 6.4-8.2 [facility] Comment on above: Performed By: #### L 3410.2710, L3410.2920, L3200.1400, L3410.2450 #### [facility] [address] [place], [address] Urea nitrogen [Mass/Vol] 14 mg/dL Normal 7-18 [facility] Comment on above: Performed By: #### L 3410.2710, L3410.2920, L3200.1400, L3410.2450 #### [facility] [address] [place], [address] Hepatitis B Surface Antibody on 09-20-2024 HEP B Surf Ab Non-Reactive Normal [facility] Comment on above: Result Comment: Non Reactive: Inconsistent with immunity less than <10 mIU/mL Reactive: Consistent with immunity greater than or equal to 10 mIU/mL Performed By: #### L 3410.2710, L3410.2920, L3200.1400, L3410.2450 #### [facility] [address] [place], [address] Hepatitis B Surface Antigeno n 09-20-2024 HEP B Surf Ag Non-Reactive Normal Nonreactive [facility] Comment on above: Performed By: #### L 3410.2710, L3410.2920, L3200.1400, L3410.2450 #### [facility] [address] [place], [address] Hepatitis C Antibodyon 09-20 Hepatitis C AB Non-Reactive Normal Nonreactive [facility] Comment on above: Result Comment: Non Reactive: < 0.8 Equivocal: >/= 0.8 to < 1.0 Reactive: >/= 1.0 The CDC requires that a reactive/equivocal HCV antibody result be sent out for confirmation. HCV Quant by PCR testing. Performed By: #### L 3410.2710, L3410.2920, L3200.1400, L3410.2450 #### [facility] [address] [place], [address] Lumbar Spine 2 or 3 Viewson 09-20-2024 Lumbar Spine 2 or 3 Views [facility] Imaging Services [address] [place] [address] Lumbar Spine 2 or 3 Views MR#: [id number] Acct: [id number] Name: DELONTE BALTAZAR Rep #: [id number] : 1985 M 39 From: Laure Cordova MD PCP: HALLE RODRIGUEZ Status: REG CLI Study: Lumbar Spine 2 or 3 Views Date of Exam: Exam# [id number] Ordering Dr: [place] [id number] EXAM: XR LUMBOSACRAL SPINE, 4 VIEWS CLINICAL INDICATION: PAIN TECHNIQUE: Frontal and lateral views of the lumbar spine. 2 of each. COMPARISON: No relevant prior studies available. FINDINGS: VERTEBRAE: There is minimal levoscoliosis at the thoracolumbar junction. Mild anterior spondylosis at T12-L3. The usual lordotic curvature well-maintained. DISC SPACES: At least mild-moderate disc space narrowing at T12-L2, and mild narrowing at L3-4 and L5-S1. GASTROINTESTINAL TRACT: Unremarkable as visualized. Included bowel gas pattern is non-obstructive. Stool and gas in the rectum. RAD/Lumbar Spine 2 or 3 Views IMPRESSION: Mild multilevel degenerative changes. Minimal scoliosis. Normal lordosis. Electronically Signed: Laure Cordova MD at 2:26 EDT , CC: Dr. Michelle Li MD; HALLE RODRIGUEZ Cattle Inspector: Signed Normal [facility] Pelvis 1 or 2 Viewson 2023 Pelvis 1 or 2 Views [facility] Imaging Services [address] [place], [place] [address] Pelvis 1 or 2 Views MR#: [id number] Acct: [id number] Name: DELONTE BALTAZAR Rep #: [id number] : 1985 M 39 From: Greer Downey MD PCP: HALLE RODRIGUEZ Status: REG CLI Study: Pelvis 1 or 2 Views Date of Exam: 09/20/24 Exam# [id number] Ordering Dr: [place] [id number] INDICATION: PAIN EXAMINATION/TECHNIQUE: X-RAY - XR Pelvis 1 or 2 Views COMPARISON: No relevant prior comparison study available FINDINGS: PELVIC BONES: No displaced fracture, destructive or sclerotic lesions. Note that overlapping bowel shadows may however obscure fine detail. Sacroiliac joints are unremarkable. No widening of the pubic symphysis. HIPS: The articular structures are unremarkable. No displaced fracture seen in this frontal view. SOFT TISSUES: No soft tissue swelling or gas. RAD/Pelvis 1 or 2 Views IMPRESSION: No evidence of displaced pelvic or hip fracture. Electronically Signed: Greer Downey MD at 21:25 EDT , CC: Dr. Michelle Li MD; HALLE RODRIGUEZ Cattle Inspector: Signed Normal [facility] Rheumatoid Factoron 09-20-20 RHEUMATOID FAC < 10.0 Normal <15 [facility] Comment on above: Performed By: #### L 3410.9290, L3410.2920, L3200.1400, L3410.2450 #### [facility] [address] [place], [address] Thoracic Spine 3 Viewson Thoracic Spine 3 Views [facility] Imaging Services [address] [place], [place] [address] Thoracic Spine 3 Views MR#: [id number] Acct: [id number] Name: DELONTE BALTAZAR Rep #: [id number] : 1985 M 39 From: Laure Cordova MD PCP: HALLE RODRIGUEZ Status: REG CLI Study: Thoracic Spine 3 Views Date of Exam: 09/20/24 Exam# [id number] Ordering Dr: [place] [id number] EXAM: XR THORACIC SPINE, 4 VIEWS CLINICAL INDICATION: PAIN TECHNIQUE: Frontal, 2 lateral views, and swimmer''s views of the thoracic spine. COMPARISON: No relevant prior studies available. FINDINGS: VERTEBRAE: The usual kyphotic curvature is well-maintained. Spondylosis at mid and lower thoracic levels Disc height is fairly well-maintained. Straightening of the usual lordotic curvature of the cervical spine on the swimmer''s view. OTHER: Intact posterior ribs. No mediastinal widening. Normal heart size. DISC SPACES: Unremarkable. Disc spaces are maintained. RAD/Thoracic Spine 3 Views IMPRESSION: Minimal degenerative changes. Electronically Signed: Laure Cordova MD at 2:23 EDT , CC: Dr. Michelle Li MD; HALLE RODRIGUEZ Cattle Inspector: Signed Normal [facility] CBC panel Auto (Bld)on 09-15 Erythrocyte distribution width (RBC) [Ratio] 13.4 % Normal 11.5-14.5 [facility] Comment on above: Performed By: #### T NGA #### PATTERSON JULIETA ([id number]) [facility] ([facility]) [address] [place] [address] 57220 Hematocrit (Bld) [Volume fraction] 45.6 % Normal 41.0-52.0 [facility] Comment on above: Performed By: #### T HYDS #### YESENIA RENDON ([id number]) [facility] ([facility]) [address] [place] [address] 31323 Hemoglobin (Bld) [Mass/Vol] 14.6 g/dL Normal 13.5-17.5 [facility] Comment on above: Performed By: #### T HYDS #### YESENIA RENDON ([id number]) [facility] ([facility]) [address] [place] [address] 63798 MCH (RBC) [Entitic mass] 27.2 pg Normal 26.0-34.0 [facility] Comment on above: Performed By: #### T HYDS #### YESENIA RENDON ([id number]) [facility] ([facility]) [address] [place] [address] 24937 MCHC (RBC) [Mass/Vol] 32.0 g/dL Normal 32.0-36.0 [facility] Comment on above: Performed By: #### T HYDS #### YESENIA RENDON ([id number]) [facility] ([facility]) [address] [place] [address] 71908 MCV (RBC) [Entitic vol] 85 fL Normal 80-100 [facility] Comment on above: Performed By: #### T HYDS #### YESENIA RENDON ([id number]) [facility] ([facility]) [address] [place] [address] 48677 Nucleated RBC/100 WBC (Bld) [Ratio] 0.0 /100 WBCs Normal 0.0-0.0 [facility] Comment on above: Performed By: #### T HYDS #### YESENIA RENDON ([id number]) [facility] ([facility]) [address] [place] [address] 15832 Platelets (Bld) [#/Vol] 321 x10*3/uL Normal 150-450 [facility] Comment on above: Performed By: #### T HYDS #### YESENIA RENDON ([id number]) [facility] ([facility]) [address] [place] [address] 55587 RBC (Bld) [#/Vol] 5.36 x10*6/uL Normal 4.50-5.90 [facility] Comment on above: Performed By: #### T MIHAELAS #### YESENIA RENDON ([id number]) [facility] ([facility]) [address] [place] [address] WBC (Bld) [#/Vol] 8.3 x10*3/uL Normal 4.4-11.3 [facility] Comment on above: Performed By: #### T MIHAELAS #### YESENIA RENDON ([id number]) [facility] ([facility]) [address] [place] [address] ESR Westergren method (Bld) [Velocity]on 09-15-2024 ESR (Bld) [Velocity] 17 mm/h High 0-15 [facility] Comment on above: Performed By: #### T MIHAELAS #### YESENIA RENDON ([id number]) [facility] ([facility]) [address] [place] [address] CBC W Auto Differential pane l (Bld)on 08-12-2024 Basophils (Bld) [#/Vol] 0.06 x10*3/uL Normal 0.00-0.10 [facility] Comment on above: Performed By: #### 5 7021-8 #### YESENIA RENDON ([id number]) [facility] ([facility]) [address] [place] [address] Basophils/100 WBC (Bld) 0.6 % Normal 0.0-2.0 [facility] Comment on above: Performed By: #### 5 7021-8 #### YESENIA RENDON ([id number]) [facility] ([facility]) [address] [place] [address] Eosinophils (Bld) [#/Vol] 0.15 x10*3/uL Normal 0.00-0.70 [facility] Comment on above: Performed By: #### 5 7021-8 #### YESENIA RENDON ([id number]) [facility] ([facility]) [address] [place] [address] Eosinophils/100 WBC (Bld) 1.6 % Normal 0.0-6.0 [facility] Comment on above: Performed By: #### 5 7021-8 #### YESENIA RENDON ([id number]) [facility] ([facility]) [address] [place] [address] 91566 Erythrocyte distribution width (RBC) [Ratio] 13.7 % Normal 11.5-14.5 [facility] Comment on above: Performed By: #### 5 7021-8 #### YESENIA RENDON ([id number]) [facility] ([facility]) [address] [place] [address] 07468 Hematocrit (Bld) [Volume fraction] 46.2 % Normal 41.0-52.0 [facility] Comment on above: Performed By: #### 5 7021-8 #### YESENIA RENDON ([id number]) [facility] ([facility]) [address] [place] [address] 02938 Hemoglobin (Bld) [Mass/Vol] 14.9 g/dL Normal 13.5-17.5 [facility] Comment on above: Performed By: #### 5 7021-8 #### YESENIA RENDON ([id number]) [facility] ([facility]) [address] [place] [address] 99964 Immature granulocytes (Bld) [#/Vol] 0.05 x10*3/uL Normal 0.00-0.70 [facility] Comment on above: Performed By: #### 5 7021-8 #### YESENIA RENDON ([id number]) [facility] ([facility]) [address] [place] [address] 60393 Immature granulocytes/100 WBC (Bld) 0.5 % Normal 0.0-0.9 [facility] Comment on above: Result Comment: Shavonne ture Granulocyte Count (IG) includes promyelocytes, myelocytes and metamyelocytes but does not include bands. Percent differential counts (%) should be interpreted in the context of the absolute cell counts (cells/UL). Performed By: #### 5 7021-8 #### YESENIA RENDON ([id number]) [facility] ([facility]) [address] [place] [address] 30258 Lymphocytes (Bld) [#/Vol] 3.12 x10*3/uL Normal 1.20-4.80 [facility] Comment on above: Performed By: #### 5 7021-8 #### YESENIA RENDON ([id number]) [facility] ([facility]) [address] [place] [address] 51175 Lymphocytes/100 WBC (Bld) 33.1 % Normal 13.0-44.0 [facility] Comment on above: Performed By: #### 5 7021-8 #### YESENIA RENDON ([id number]) [facility] ([facility]) [address] [place] [address] 92286 MCH (RBC) [Entitic mass] 27.2 pg Normal 26.0-34.0 [facility] Comment on above: Performed By: #### 5 7021-8 #### YESENIA RENDON ([id number]) [facility] ([facility]) [address] [place] [address] 87700 MCHC (RBC) [Mass/Vol] 32.3 g/dL Normal 32.0-36.0 [facility] Comment on above: Performed By: #### 5 7021-8 #### YESENIA RENDON ([id number]) [facility] ([facility]) [address] [place] [address] 15512 MCV (RBC) [Entitic vol] 85 fL Normal 80-100 [facility] Comment on above: Performed By: #### 5 7021-8 #### YESENIA RENDON ([id number]) [facility] ([facility]) [address] [place] [address] 12277 Monocytes (Bld) [#/Vol] 0.56 x10*3/uL Normal 0.10-1.00 [facility] Comment on above: Performed By: #### 5 7021-8 #### YESENIA RENDON ([id number]) [facility] ([facility]) [address] [place] [address] 69296 Monocytes/100 WBC (Bld) 5.9 % Normal 2.0-10.0 [facility] Comment on above: Performed By: #### 5 7021-8 #### YESENIA RENDON ([id number]) [facility] ([facility]) [address] [place] [address] 82133 Neutrophils (Bld) [#/Vol] 5.50 x10*3/uL Normal 1.20-7.70 [facility] Comment on above: Result Comment: Perc ent differential counts (%) should be interpreted in the context of the absolute cell counts (cells/uL). Performed By: #### 5 7021-8 #### YESENIA RENDON ([id number]) [facility] ([facility]) [address] [place] [address] 67062 Neutrophils/100 WBC (Bld) 58.3 % Normal 40.0-80.0 [facility] Comment on above: Performed By: #### 5 7021-8 #### YESENIA RENDON ([id number]) [facility] ([facility]) [address] [place] [address] 63070 Nucleated RBC/100 WBC (Bld) [Ratio] 0.0 /100 WBCs Normal 0.0-0.0 [facility] Comment on above: Performed By: #### 5 7021-8 #### YESENIA RENDON ([id number]) [facility] ([facility]) [address] [place] [address] 06599 Platelets (Bld) [#/Vol] 352 x10*3/uL Normal 150-450 [facility] Comment on above: Performed By: #### 5 7021-8 #### YESENIA RENDON ([id number]) [facility] ([facility]) [address] [place] [address] 67725 RBC (Bld) [#/Vol] 5.47 x10*6/uL Normal 4.50-5.90 [facility] Comment on above: Performed By: #### 5 7021-8 #### YESENIA RENDON ([id number]) [facility] ([facility]) [address] [place] [address] 96384 WBC (Bld) [#/Vol] 9.4 x10*3/uL Normal 4.4-11.3 [facility] Comment on above: Performed By: #### 5 7021-8 #### YESENIA RENDON ([id number]) [facility] ([facility]) [address] [place], [place] [address] ESR Westergren method (Bld) [Velocity]on 08-12-2024 ESR (Bld) [Velocity] 26 mm/h High 0-15 [facility] Comment on above: Performed By: #### 4 537-7 #### YESENIA RENDON ([id number]) [facility] ([facility]) [address] [place] [address] 27651 C reactive proteinon 024 CRP [Mass/Vol] 0.92 mg/dL Normal <1.00 [facility] Comment on above: Performed By: #### 1 988-5 #### YESENIA RENDON ([id number]) [facility] ([facility]) [address] [place], [place] [address] CBC W Auto Differential pane l (Bld)on 07-26-2024 Basophils (Bld) [#/Vol] 0.07 x10*3/uL Normal 0.00-0.10 [facility] Comment on above: Performed By: #### 5 7021-8 #### YESENIA RENDON ([id number]) [facility] ([facility]) [address] [place] [address] 50944 Basophils/100 WBC (Bld) 0.6 % Normal 0.0-2.0 [facility] Comment on above: Performed By: #### 5 7021-8 #### YESENIA RENDON ([id number]) [facility] ([facility]) [address] [place] [address] 82046 Eosinophils (Bld) [#/Vol] 0.38 x10*3/uL Normal 0.00-0.70 [facility] Comment on above: Performed By: #### 5 7021-8 #### YESENIA RENDON ([id number]) [facility] ([facility]) [address] [place] [address] 36522 Eosinophils/100 WBC (Bld) 3.2 % Normal 0.0-6.0 [facility] Comment on above: Performed By: #### 5 7021-8 #### YESENIA RENDON ([id number]) [facility] ([facility]) [address] [place] [address] Erythrocyte distribution width (RBC) [Ratio] 13.6 % Normal 11.5-14.5 [facility] Comment on above: Performed By: #### 5 7021-8 #### YESENIA RENDON ([id number]) [facility] ([facility]) [address] [place] [address] Hematocrit (Bld) [Volume fraction] 46.1 % Normal 41.0-52.0 [facility] Comment on above: Performed By: #### 5 7021-8 #### YESENIA RENDON ([id number]) [facility] ([facility]) [address] [place] [address] Hemoglobin (Bld) [Mass/Vol] 15.1 g/dL Normal 13.5-17.5 [facility] Comment on above: Performed By: #### 5 7021-8 #### YESENIA RENDON ([id number]) [facility] ([facility]) [address] [place], [place] [address] Immature granulocytes (Bld) [#/Vol] 0.05 x10*3/uL Normal 0.00-0.70 [facility] Comment on above: Performed By: #### 5 7021-8 #### YESENIA RENDON ([id number]) [facility] ([facility]) [address] [place], [place] [address] Immature granulocytes/100 WBC (Bld) 0.4 % Normal 0.0-0.9 [facility] Comment on above: Result Comment: Shavonne ture Granulocyte Count (IG) includes promyelocytes, myelocytes and metamyelocytes but does not include bands. Percent differential counts (%) should be interpreted in the context of the absolute cell counts (cells/UL). Performed By: #### 5 7021-8 #### YESENIA RENDON ([id number]) [facility] ([facility]) [address] [place], [place] [address] Lymphocytes (Bld) [#/Vol] 3.91 x10*3/uL Normal 1.20-4.80 [facility] Comment on above: Performed By: #### 5 7021-8 #### YESENIA RENDON ([id number]) [facility] ([facility]) [address] [place] [address] 82916 Lymphocytes/100 WBC (Bld) 32.9 % Normal 13.0-44.0 [facility] Comment on above: Performed By: #### 5 7021-8 #### YESENIA RENDON ([id number]) [facility] ([facility]) [address] [place] [address] 23033 MCH (RBC) [Entitic mass] 27.4 pg Normal 26.0-34.0 [facility] Comment on above: Performed By: #### 5 7021-8 #### YESENIA RENDON ([id number]) [facility] ([facility]) [address] [place] [address] 95115 MCHC (RBC) [Mass/Vol] 32.8 g/dL Normal 32.0-36.0 [facility] Comment on above: Performed By: #### 5 7021-8 #### YESENIA RENDON ([id number]) [facility] ([facility]) [address] [place] [address] 41746 MCV (RBC) [Entitic vol] 84 fL Normal 80-100 [facility] Comment on above: Performed By: #### 5 7021-8 #### YESENIA RENDON ([id number]) [facility] ([facility]) [address] [place] [address] 55798 Monocytes (Bld) [#/Vol] 0.86 x10*3/uL Normal 0.10-1.00 [facility] Comment on above: Performed By: #### 5 7021-8 #### YESENIA RENDON ([id number]) [facility] ([facility]) [address] [place] [address] 38244 Monocytes/100 WBC (Bld) 7.2 % Normal 2.0-10.0 [facility] Comment on above: Performed By: #### 5 7021-8 #### YESENIA RENDON ([id number]) [facility] ([facility]) [address] [place] [address] 19707 Neutrophils (Bld) [#/Vol] 6.61 x10*3/uL Normal 1.20-7.70 [facility] Comment on above: Result Comment: Perc ent differential counts (%) should be interpreted in the context of the absolute cell counts (cells/uL). Performed By: #### 5 7021-8 #### YESENIA RENDON ([id number]) [facility] ([facility]) [address] [place] [address] 34181 Neutrophils/100 WBC (Bld) 55.7 % Normal 40.0-80.0 [facility] Comment on above: Performed By: #### 5 7021-8 #### YESENIA RENDON ([id number]) [facility] ([facility]) [address] [place] [address] 02834 Nucleated RBC/100 WBC (Bld) [Ratio] 0.0 /100 WBCs Normal 0.0-0.0 [facility] Comment on above: Performed By: #### 5 7021-8 #### YESENIA RENDON ([id number]) [facility] ([facility]) [address] [place] [address] 16326 Platelets (Bld) [#/Vol] 349 x10*3/uL Normal 150-450 [facility] Comment on above: Performed By: #### 5 7021-8 #### YESENIA RENDON ([id number]) [facility] ([facility]) [address] [place] [address] 92473 RBC (Bld) [#/Vol] 5.51 x10*6/uL Normal 4.50-5.90 [facility] Comment on above: Performed By: #### 5 7021-8 #### YESENIA RENDON ([id number]) [facility] ([facility]) [address] [place] [address] 25322 WBC (Bld) [#/Vol] 11.9 x10*3/uL High 4.4-11.3 [facility] Comment on above: Performed By: #### 5 7021-8 #### YESENIA RENDON ([id number]) [facility] ([facility]) [facility] [place] [address] Comprehensive metabolic 2000 panelon 07-26-2024 Albumin BCP dye [Mass/Vol] 4.7 g/dL Normal 3.4-5.0 [facility] Comment on above: Performed By: #### 2 4323-8 #### YESENIA RENDON ([id number]) [facility] ([facility]) [address] [place] [address] 80922 ALP [Catalytic activity/Vol] 82 U/L Normal 33-120 [facility] Comment on above: Performed By: #### 2 4323-8 #### YESENIA RENDON ([id number]) [facility] ([facility]) [address] [place] [address] ALT With P-5'-P [Catalytic activity/Vol] 40 U/L Normal 10-52 [facility] Comment on above: Result Comment: Bharati ents treated with Sulfasalazine may generate falsely decreased results for ALT. Performed By: #### 2 4323-8 #### YESENIA RENDON ([id number]) [facility] ([facility]) [address] [place] [address] 91206 Anion gap [Moles/Vol] 13 mmol/L Normal 10-20 [facility] Comment on above: Performed By: #### 2 4323-8 #### YESENIA RENDON ([id number]) [facility] ([facility]) [address] [place] [address] 39968 AST With P-5'-P [Catalytic activity/Vol] 21 U/L Normal 9-39 [facility] Comment on above: Performed By: #### 2 4323-8 #### YESENIA RENDON ([id number]) [facility] ([facility]) [address] [place] [address] 20819 Bilirubin [Mass/Vol] 0.6 mg/dL Normal 0.0-1.2 [facility] Comment on above: Performed By: #### 2 4323-8 #### YESENIA RENDON ([id number]) [facility] ([facility]) [address] [place] [address] 73419 Calcium [Mass/Vol] 9.7 mg/dL Normal 8.6-10.3 [facility] Comment on above: Performed By: #### 2 4323-8 #### YESENIA RENDON ([id number]) [facility] ([facility]) [address] [place] [address] 68834 Chloride [Moles/Vol] 101 mmol/L Normal 98-107 [facility] Comment on above: Performed By: #### 2 4323-8 #### YESENIA RENDON ([id number]) [facility] ([facility]) [address] [place] [address] [id number] CO2 [Moles/Vol] 28 mmol/L Normal 21-32 [facility] Comment on above: Performed By: #### 2 4323-8 #### YESENIA RENDON ([id number]) [facility] ([facility]) [address] [place] [address] [phone] Creatinine [Mass/Vol] 0.70 mg/dL Normal 0.50-1.30 [facility] Comment on above: Performed By: #### 2 4323-8 #### YESENIA RENDON ([id number]) [facility] ([facility]) [address] [place] [address] 74426 GFR/1.73 sq M.predicted MDRD (S/P/Bld) [Vol rate/Area] mL/min/{1.73_m2} Normal >60 [facility] Comment on above: Result Comment: Calc ulations of estimated GFR are performed using the 2020 CKD-EPI Study Refit equation without the race variable for the IDMS-Traceable creatinine methods. https://jasn.asnjournals.org/content//ASN.[email or web address] [email or web address] Performed By: #### 2 4323-8 #### YESENIA RENDON ([id number]) [facility] ([facility]) [address] [place] [address] 95729 Glucose [Mass/Vol] 73 mg/dL Low 74-99 [facility] Comment on above: Performed By: #### 2 4323-8 #### YESENIA RENDON ([id number]) [facility] ([facility]) [address] [place] [address] 52410 Potassium [Moles/Vol] 4.2 mmol/L Normal 3.5-5.3 [facility] Comment on above: Performed By: #### 2 4323-8 #### YESENIA RENDON ([id number]) [facility] ([facility]) [address] [place] [address] 65089 Protein [Mass/Vol] 7.9 g/dL Normal 6.4-8.2 [facility] Comment on above: Performed By: #### 2 4323-8 #### YESENIA RENDON ([id number]) [facility] ([facility]) [address] [place] [address] 77617 Sodium [Moles/Vol] 138 mmol/L Normal 136-145 [facility] Comment on above: Performed By: #### 2 4323-8 #### YESENIA RENDON ([id number]) [facility] ([facility]) [address] [place] [address] 63025 Urea nitrogen [Mass/Vol] 14 mg/dL Normal 6-23 [facility] Comment on above: Performed By: #### 2 4323-8 #### YESENIA RENDON ([id number]) [facility] ([facility]) [address] [place] [address] 48117 Creatine kinaseon 07-26-2024 CK [Catalytic activity/Vol] 123 U/L Normal 0-325 [facility] Comment on above: Performed By: #### 2 157-6 #### YESENIA RENDON ([id number]) [facility] ([facility]) [address] [place] [address] 18837 ESR Westergren method (Bld) [Velocity]on 07-26-2024 ESR (Bld) [Velocity] 56 mm/h High 0-15 [facility] Comment on above: Performed By: #### 4 537-7 #### YESENIA RENDON ([id number]) [facility] ([facility]) [address] [place] [address] 59402 Nuclear Abon 07-26-2024 Nuclear Ab Hep2 substrate Ql (S) Negative Normal Negative [facility] Comment on above: Result Comment: The Antinuclear Antibody (JENNIFER) test was performed using indirect immunofluorescence assay with HEp-2 cells slide. Performed By: #### 5 9069-5 #### SYED Rodriguez ([id number]) [facility] ([facility]) [address] [place] [address] Rheumatoid factoron 07-26-20 Rheumatoid factor Nephelometry Qn (S) <10 Normal 0-15 [facility] Comment on above: Performed By: #### 1 5205-8 #### SYED Rodriguez ([id number]) [facility] ([facility]) [address] [place] [address] 92454 TSH WITH REFLEX TO FREE T4 I F ABNORMALon 07-26-2024 TSH Qn 3.93 m[IU]/L Normal 0.44-3.98 [facility] Comment on above: Order Comment: TSH t esting is performed using different testing methodology at [facility] than at other [facility]. Direct result comparisons should only be made within the same method. Performed By: #### T NGA #### PATTERSON JULIETA ([id number]) [facility] ([facility]) [address] [place] [address] 71645 SEMEN ANALYSIS, POST-VASECTO MYon 04-28-2024 CONCENTRATION TECHNIQUE PERFORMED Yes Normal [facility] Comment on above: Performed By: #### 4 6480 #### [facility] [address] [id number] Bladimir Greenfield M.D. [id number] MOTILITY No sperm seen Normal [facility] Comment on above: Performed By: #### 4 6480 #### [facility] [address] [place], [place] [address] Bladimir Greenfield M.D. [id number] SPERM COUNT, POST-VASECTOMY 0 M/mL Normal 0-0 [facility] Comment on above: Performed By: #### 4 6480 #### [facility] [address] [place], [place] [address] Bladimir Greenfield M.D. [id number] CBC W Auto Differential pane l (Bld)on 03-18-2024 Basophils (Bld) [#/Vol] 0.07 10*3/uL [facility] Basophils/100 WBC (Bld) 0.5 % 0.0 - 2.0 % [facility] Eosinophils (Bld) [#/Vol] 0.17 10*3/uL [facility] Eosinophils/100 WBC (Bld) 1.3 % 0.0 - 6.0 % [facility] Erythrocyte distribution width (RBC) [Ratio] 13.8 % 11.5 - 14.5 % [facility] Hematocrit (Bld) [Volume fraction] 43.7 % 41.0 - 52.0 % [facility] Hemoglobin (Bld) [Mass/Vol] 14.5 g/dL 13.5 - 17.5 g/dL [facility] Immature granulocytes (Bld) [#/Vol] 0.04 10*3/uL [facility] Immature granulocytes/100 WBC (Bld) 0.3 % 0.0 - 0.9 % [facility] Comment on above: Immature Granulocyte Count (IG) includes promyelocytes, myelocytes and metamyelocytes but does not include bands. Percent differential counts (%) should be interpreted in the context of the absolute cell counts (cells/UL). Interpretation and review of laboratory results Abnormal [facility] Lymphocytes (Bld) [#/Vol] 5.40 10*3/uL High [facility] Lymphocytes/100 WBC (Bld) 40.5 % 13.0 - 44.0 % [facility] MCH (RBC) [Entitic mass] 27.5 pg 26.0 - 34.0 pg [facility] MCHC (RBC) [Mass/Vol] 33.2 g/dL 32.0 - 36.0 g/dL [facility] MCV (RBC) [Entitic vol] 83 fL 80 - 100 fL [facility] Monocytes (Bld) [#/Vol] 0.58 10*3/uL [facility] Monocytes/100 WBC (Bld) 4.4 % 2.0 - 10.0 % [facility] Neutrophils (Bld) [#/Vol] 7.07 10*3/uL [facility] Comment on above: Percent differential counts (%) should be interpreted in the context of the absolute cell counts (cells/uL). Neutrophils/100 WBC (Bld) 53.0 % 40.0 - 80.0 % [facility] Nucleated RBC/100 WBC (Bld) [Ratio] 0.0 % [facility] Platelets (Bld) [#/Vol] 305 10*3/uL [facility] RBC (Bld) [#/Vol] 5.28 10*6/uL [facility] WBC (Bld) [#/Vol] 13.3 10*3/uL High [facility] Comprehensive metabolic 2000 panelon 03-18-2024 Albumin BCP dye [Mass/Vol] 4.7 g/dL 3.4 - 5.0 g/dL [facility] ALP [Catalytic activity/Vol] 70 U/L 33 - 120 U/L [facility] ALT With P-5'-P [Catalytic activity/Vol] 63 U/L High 10 - 52 U/L [facility] Comment on above: Patients treated wit h Sulfasalazine may generate falsely decreased results for ALT. Anion gap [Moles/Vol] 13 mmol/L 10 - 2 0 mmol/L [facility] AST With P-5'-P [Catalytic activity/Vol] 27 U/L 9 - 39 U/L [facility] Bilirubin [Mass/Vol] 0.6 mg/dL 0.0 - 1 .2 mg/dL [facility] Calcium [Mass/Vol] 9.8 mg/dL 8.6 - 10. 3 mg/dL [facility] Chloride [Moles/Vol] 102 mmol/L 98 - 10 7 mmol/L [facility] CO2 [Moles/Vol] 26 mmol/L 21 - 32 mmol/L [facility] Creatinine [Mass/Vol] 0.68 mg/dL 0.50 - 1.30 mg/dL [facility] eGFR - PINF [facility] Comment on above: Calculations of kamille mated GFR are performed using the 2020 CKD-EPI Study Refit equation without the race variable for the IDMS-Traceable creatinine methods. https://jasn.asnjournals.org/content//ASN.470112 2556 Glucose [Mass/Vol] 78 mg/dL 74 - 99 mg/dL [facility] Potassium [Moles/Vol] 3.8 mmol/L 3.5 - 5.3 mmol/L [facility] Protein [Mass/Vol] 7.9 g/dL 6.4 - 8.2 g/dL [facility] Sodium [Moles/Vol] 137 mmol/L 136 - 145 mmol/L [facility] Urea nitrogen [Mass/Vol] 18 mg/dL 6 - 23 mg/dL [facility] D-Dimer, VTE Exclusionon Fibrin D-dimer FEU (PPP) [Mass/Vol] 313 NINF [facility] ECG 12-LEADon 03-18-2024 ECG 12-LEAD Ventricular Rate 95 Atrial Rate 95 P-R Interval 160 QRS Duration 88 Q-T Interval 362 QTC Calculation(Bazett) 454 P Riddleton 66 R Riddleton 41 T Riddleton 61 QRS Count 16 Q Onset 216 P Onset 136 P Offset 186 T Offset 397 QTC Fredericia 421 Diagnosis Normal sinus rhythm Nonspecific ST and T wave abnormality Abnormal ECG When compared with ECG of 18-MAR-2024 17:30, (unconfirmed) Sinus rhythm has replaced Atrial flutter ST elevation now present in Inferior leads See ED provider note for full interpretation and clinical correlation Confirmed by Stephanie Galindo (Mary) on 03/23/2024 7:30:[address] [facility] ECG 12-LEAD Ventricular Rate 97 Atrial Rate 272 QRS Duration 86 Q-T Interval 328 QTC Calculation(Bazett) 416 P Riddleton 52 R Riddleton 29 T Riddleton 33 QRS Count 16 Q Onset 219 P Onset 140 P Offset 187 T Offset 383 QTC Fredericia 384 Diagnosis Atrial flutter Nonspecific ST abnormality Abnormal ECG When compared with ECG of 29-FEB-2024 10:12, Atrial flutter has replaced Sinus rhythm Minimal criteria for Inferior infarct are no longer Present See ED provider note for full interpretation and clinical correlation Confirmed by Stephanie Galindo ([id number]) on 03/23/2024 7:30:[address] [facility] Fibrin D-dimer FEU (PPP) [Ma ss/Vol]on 03-18-2024 Interpretation and review of laboratory results Normal [facility] The VTE Exclusion D-Dimer assay is reported in ng/mL Fibrinogen Equivalent Units (FEU). Per recreation superintendent's instructions for use, a value of less than 500 ng/mL (FEU) may help to exclude DVT or PE in outpatients when the assay is used with a clinical pretest probability assessment.([facility] must utilize and document eCalc 'Wells Score Deep Vein Thrombosis Risk' for DVT exclusion only. Emergency Department should utilize Guidelines for Emergency Department Use of the VTE Exclusion D-Dimer and Clinical Pretest probability assessment model for DVT or PE exclusion.) [facility] Influenza virus A and B and SARS-CoV-2 (COVID-19) identified MONSE+probe Nom (Resp)on 03-18-2024 FLUAV RNA MONSE+probe Ql (Resp) Not detected Not Detected [facility] FLUBV RNA MONSE+probe Ql (Resp) Not detected Not Detected [facility] Interpretation and review of laboratory results Normal [facility] SARS-CoV-2 (COVID-19) RNA MONSE+probe Ql (Resp) Not detected Not Detected [facility] This assay has recei starla FDA Emergency Use Authorization (EUA) and is only authorized for the duration of time that circumstances exist to justify the authorization of the emergency use of in vitro diagnostic tests for the detection of SARS-CoV-2 virus and/or diagnosis of COVID-19 infection under section 564(b)(1) of the Act, 21 U.S.C. 360bbb-3(b)(1). Testing for SARS-CoV-2 is only recommended for patients who meet current clinical and/or epidemiological criteria as defined by federal, state, or local public health directives. This assay is an in vitro diagnostic nucleic acid amplification test for the qualitative detection of SARS-CoV-2, Influenza A, and Influenza B from nasopharyngeal specimens and has been validated for use at [facility]. Negative results do not preclude COVID-19 infections or Influenza A/B infections, and should not be used as the sole basis for diagnosis, treatment, or other management decisions. If Influenza A/B and RSV PCR results are negative, testing for Parainfluenza virus, Adenovirus and Metapneumovirus is routinely performed for [facility] [place]ology and intensive care inpatients, and is available on other patients by placing an add-on request. [facility] Magnesiumon 03-18-2024 Magnesium [Mass/Vol] 2.48 mg/dL High 1.60 - 2.40 mg/dL [facility] No Panel Informationon 03-18 Interpretation and review of laboratory results Abnormal [facility] Tropinin I.cardiac panel Hig h sensitivity methodon 03-18-2024 Interpretation and review of laboratory results Normal [facility] Less than 99th percentile of normal range cutoff- Female and children under 18 years old <14 ng/L; Male <21 ng/L: Negative Repeat testing should be performed if clinically indicated. Female and children under 18 years old 14-50 ng/L; Male 21-50 ng/L: Consistent with possible cardiac damage and possible increased clinical risk. Serial measurements may help to assess extent of myocardial damage. >50 ng/L: Consistent with cardiac damage, increased clinical risk and myocardial infarction. Serial measurements may help assess extent of myocardial damage. NOTE: Children less than 1 year old may have higher baseline troponin levels and results should be interpreted in conjunction with the overall clinical context. NOTE: Troponin I testing is performed using a different testing methodology at [facility] than at other [facility]. Direct result comparisons should only be made within the same method. [facility] Interpretation and review of laboratory results Normal [facility] Less than 99th percentile of normal range cutoff- Female and children under 18 years old <14 ng/L; Male <21 ng/L: Negative Repeat testing should be performed if clinically indicated. Female and children under 18 years old 14-50 ng/L; Male 21-50 ng/L: Consistent with possible cardiac damage and possible increased clinical risk. Serial measurements may help to assess extent of myocardial damage. >50 ng/L: Consistent with cardiac damage, increased clinical risk and myocardial infarction. Serial measurements may help assess extent of myocardial damage. NOTE: Children less than 1 year old may have higher baseline troponin levels and results should be interpreted in conjunction with the overall clinical context. NOTE: Troponin I testing is performed using a different testing methodology at [facility] than at other [facility]. Direct result comparisons should only be made within the same method. [facility] Troponin I, High Sensitivity , Initialon 03-18-2024 Tropinin I.cardiac panel High sensitivity method 3 ng/L 0 - 20 ng/L [facility] Troponin, High Sensitivity, 1 Houron 03-18-2024 Tropinin I.cardiac panel High sensitivity method 3 ng/L 0 - 20 ng/L [facility] XR Chest Single viewon 03-18 No detectable active cardiopulmonary disease. Signed by Edwin Kerns MD TELERADIOLOGY STUDY: Chest Radiograph; 03/18/24 at 5:35 PM. INDICATION: Chest pain. COMPARISON: XR chest 02/29/24. ACCESSION NUMBER(S): [id number] ORDERING CLINICIAN: MORRIS MONTANEZ TECHNIQUE: Frontal chest was obtained at 17:35 hours. FINDINGS: CARDIOMEDIASTINAL SILHOUETTE: Cardiomediastinal silhouette is normal in size and configuration. LUNGS: Lungs are clear. There is no pneumothorax. ABDOMEN: No remarkable upper abdominal findings. BONES: No acute osseous changes. TELERADIOLOGY Edwin Kerns MD - 03/18/2024 STUDY: Chest Radiograph; 03/18/24 at 5:35 PM. INDICATION: Chest pain. COMPARISON: XR chest 02/29/24. ACCESSION NUMBER(S): [id number] ORDERING CLINICIAN: MORRIS MONTANEZ TECHNIQUE: Frontal chest was obtained at 17:35 hours. FINDINGS: CARDIOMEDIASTINAL SILHOUETTE: Cardiomediastinal silhouette is normal in size and configuration. LUNGS: Lungs are clear. There is no pneumothorax. ABDOMEN: No remarkable upper abdominal findings. BONES: No acute osseous changes. IMPRESSION: No detectable active cardiopulmonary disease. Signed by Edwin Kerns MD [facility] Work Phone: Radiology Study observation (narrative) [facility] Work Phone: XR Chest Single viewOrdered By: Edwin Kerns on 03-18-2024 [facility] Work Phone: CBC W Auto Differential pane l (Bld)on 02-29-2024 Basophils (Bld) [#/Vol] 0.07 10*3/uL [facility] Basophils/100 WBC (Bld) 0.6 % 0.0 - 2.0 % [facility] Eosinophils (Bld) [#/Vol] 0.23 10*3/uL [facility] Eosinophils/100 WBC (Bld) 1.9 % 0.0 - 6.0 % [facility] Erythrocyte distribution width (RBC) [Ratio] 13.5 % 11.5 - 14.5 % [facility] Hematocrit (Bld) [Volume fraction] 44.5 % 41.0 - 52.0 % [facility] Hemoglobin (Bld) [Mass/Vol] 14.6 g/dL 13.5 - 17.5 g/dL [facility] Immature granulocytes (Bld) [#/Vol] 0.10 10*3/uL [facility] Immature granulocytes/100 WBC (Bld) 0.8 % 0.0 - 0.9 % [facility] Comment on above: Immature Granulocyte Count (IG) includes promyelocytes, myelocytes and metamyelocytes but does not include bands. Percent differential counts (%) should be interpreted in the context of the absolute cell counts (cells/UL). Interpretation and review of laboratory results Abnormal [facility] Lymphocytes (Bld) [#/Vol] 4.13 10*3/uL [facility] Lymphocytes/100 WBC (Bld) 33.7 % 13.0 - 44.0 % [facility] MCH (RBC) [Entitic mass] 27.2 pg 26.0 - 34.0 pg [facility] MCHC (RBC) [Mass/Vol] 32.8 g/dL 32.0 - 36.0 g/dL [facility] MCV (RBC) [Entitic vol] 83 fL 80 - 100 fL [facility] Monocytes (Bld) [#/Vol] 0.53 10*3/uL [facility] Monocytes/100 WBC (Bld) 4.3 % 2.0 - 10.0 % [facility] Neutrophils (Bld) [#/Vol] 7.19 10*3/uL [facility] Comment on above: Percent differential counts (%) should be interpreted in the context of the absolute cell counts (cells/uL). Neutrophils/100 WBC (Bld) 58.7 % 40.0 - 80.0 % [facility] Nucleated RBC/100 WBC (Bld) [Ratio] 0.0 % [facility] Platelets (Bld) [#/Vol] 300 10*3/uL [facility] RBC (Bld) [#/Vol] 5.36 10*6/uL [facility] WBC (Bld) [#/Vol] 12.3 10*3/uL High [facility] Comprehensive metabolic 2000 panelon 02-29-2024 Albumin BCP dye [Mass/Vol] 4.5 g/dL 3.4 - 5.0 g/dL [facility] ALP [Catalytic activity/Vol] 80 U/L 33 - 120 U/L [facility] ALT With P-5'-P [Catalytic activity/Vol] 50 U/L 10 - 52 U/L [facility] Comment on above: Patients treated wit h Sulfasalazine may generate falsely decreased results for ALT. Anion gap [Moles/Vol] 12 mmol/L 10 - 2 0 mmol/L [facility] AST With P-5'-P [Catalytic activity/Vol] 22 U/L 9 - 39 U/L [facility] Bilirubin [Mass/Vol] 0.5 mg/dL 0.0 - 1 .2 mg/dL [facility] Calcium [Mass/Vol] 9.3 mg/dL 8.6 - 10. 3 mg/dL [facility] Chloride [Moles/Vol] 104 mmol/L 98 - 10 7 mmol/L [facility] CO2 [Moles/Vol] 27 mmol/L 21 - 32 mmol/L [facility] Creatinine [Mass/Vol] 0.68 mg/dL 0.50 - 1.30 mg/dL [facility] eGFR - PINF [facility] Comment on above: Calculations of kamille mated GFR are performed using the 2020 CKD-EPI Study Refit equation without the race variable for the IDMS-Traceable creatinine methods. https://jasn.asnjournals.org/content//ASN.600203 0714 Glucose [Mass/Vol] 98 mg/dL 74 - 99 mg/dL [facility] Potassium [Moles/Vol] 3.9 mmol/L 3.5 - 5.3 mmol/L [facility] Protein [Mass/Vol] 7.8 g/dL 6.4 - 8.2 g/dL [facility] Sodium [Moles/Vol] 139 mmol/L 136 - 145 mmol/L [facility] Urea nitrogen [Mass/Vol] 11 mg/dL 6 - 23 mg/dL [facility] ECG 12-LEADon 02-29-2024 ECG 12-LEAD Ventricular Rate 91 Atrial Rate 91 P-R Interval 166 QRS Duration 82 Q-T Interval 362 QTC Calculation(Bazett) 445 P Riddleton 25 R Riddleton 2 T Riddleton 23 QRS Count 15 Q Onset 220 P Onset 137 P Offset 185 T Offset 401 QTC Fredericia 416 Diagnosis Normal sinus rhythm Minimal voltage criteria for LVH, may be normal variant ( R in aVL ) Cannot rule out Inferior infarct (cited on or before 29-FEB-2024) Abnormal ECG When compared with ECG of 29-FEB-2024 09:09, (unconfirmed) No significant change was found See ED provider note for full interpretation and clinical correlation Confirmed by Stephanie Galindo ([id number]) on 03/04/2024 10:57:[address] [facility] ECG 12-LEAD Ventricular Rate 103 Atrial Rate 103 P-R Interval 152 QRS Duration 88 Q-T Interval 336 QTC Calculation(Bazett) 440 P Riddleton 40 R Riddleton 10 T Riddleton 16 QRS Count 17 Q Onset 219 P Onset 143 P Offset 190 T Offset 387 QTC Fredericia 402 Diagnosis Sinus tachycardia Cannot rule out Inferior infarct , age undetermined Abnormal ECG No previous ECGs available See ED provider note for full interpretation and clinical correlation Confirmed by Stephanie Galindo ([id number]) on 03/04/2024 10:56:[address] [facility] Influenza virus A and B and SARS-CoV-2 (COVID-19) identified MONSE+probe Nom (Resp)on 02-29-2024 FLUAV RNA MONSE+probe Ql (Resp) Not detected Not Detected [facility] FLUBV RNA MONSE+probe Ql (Resp) Not detected Not Detected [facility] Interpretation and review of laboratory results Normal [facility] SARS-CoV-2 (COVID-19) RNA MONSE+probe Ql (Resp) Not detected Not Detected [facility] This assay has recei starla FDA Emergency Use Authorization (EUA) and is only authorized for the duration of time that circumstances exist to justify the authorization of the emergency use of in vitro diagnostic tests for the detection of SARS-CoV-2 virus and/or diagnosis of COVID-19 infection under section 564(b)(1) of the Act, 21 U.S.C. 360bbb-3(b)(1). Testing for SARS-CoV-2 is only recommended for patients who meet current clinical and/or epidemiological criteria as defined by federal, state, or local public health directives. This assay is an in vitro diagnostic nucleic acid amplification test for the qualitative detection of SARS-CoV-2, Influenza A, and Influenza B from nasopharyngeal specimens and has been validated for use at [facility]. Negative results do not preclude COVID-19 infections or Influenza A/B infections, and should not be used as the sole basis for diagnosis, treatment, or other management decisions. If Influenza A/B and RSV PCR results are negative, testing for Parainfluenza virus, Adenovirus and Metapneumovirus is routinely performed for [facility] [place], and is available on other patients by placing an add-on request. [facility] Magnesiumon 02-29-2024 Magnesium [Mass/Vol] 2.16 mg/dL 1.60 - 2.40 mg/dL [facility] No Panel Informationon 02-28 Interpretation and review of laboratory results Normal [facility] Tropinin I.cardiac panel Hig h sensitivity methodon 02-29-2024 Interpretation and review of laboratory results Normal [facility] Less than 99th percentile of normal range cutoff- Female and children under 18 years old <14 ng/L; Male <21 ng/L: Negative Repeat testing should be performed if clinically indicated. Female and children under 18 years old 14-50 ng/L; Male 21-50 ng/L: Consistent with possible cardiac damage and possible increased clinical risk. Serial measurements may help to assess extent of myocardial damage. >50 ng/L: Consistent with cardiac damage, increased clinical risk and myocardial infarction. Serial measurements may help assess extent of myocardial damage. NOTE: Children less than 1 year old may have higher baseline troponin levels and results should be interpreted in conjunction with the overall clinical context. NOTE: Troponin I testing is performed using a different testing methodology at [facility] than at other [place] [facility]. Direct result comparisons should only be made within the same method. [facility] Interpretation and review of laboratory results Normal [facility] Less than 99th percentile of normal range cutoff- Female and children under 18 years old <14 ng/L; Male <21 ng/L: Negative Repeat testing should be performed if clinically indicated. Female and children under 18 years old 14-50 ng/L; Male 21-50 ng/L: Consistent with possible cardiac damage and possible increased clinical risk. Serial measurements may help to assess extent of myocardial damage. >50 ng/L: Consistent with cardiac damage, increased clinical risk and myocardial infarction. Serial measurements may help assess extent of myocardial damage. NOTE: Children less than 1 year old may have higher baseline troponin levels and results should be interpreted in conjunction with the overall clinical context. NOTE: Troponin I testing is performed using a different testing methodology at [facility] than at other [place] [facility]. Direct result comparisons should only be made within the same method. [facility] Troponin I, High Sensitivity , Initialon 02-29-2024 Tropinin I.cardiac panel High sensitivity method 4 ng/L 0 - 20 ng/L [facility] Troponin, High Sensitivity, 1 Houron 02-29-2024 Tropinin I.cardiac panel High sensitivity method 4 ng/L 0 - 20 ng/L [facility] XR Chest Single viewon 02-28 No acute process. Signed by Brando Farrar MD TELERADIOLOGY STUDY: Chest Radiograph; 02/29/2024 at 9:28 AM. INDICATION: Chest pain. COMPARISON: None available. ACCESSION NUMBER(S): [id number] ORDERING CLINICIAN: MORRIS MONTANEZ TECHNIQUE: Frontal chest was obtained at 09:28 hours. FINDINGS: CARDIOMEDIASTINAL SILHOUETTE: Cardiomediastinal silhouette is normal in size and configuration. LUNGS: Lungs are clear. ABDOMEN: No remarkable upper abdominal findings. BONES: No acute osseous changes. TELERADIOLOGY Brando Farrar MD - 02/29/2024 STUDY: Chest Radiograph; 02/29/2024 at 9:28 AM. INDICATION: Chest pain. COMPARISON: None available. ACCESSION NUMBER(S): [id number] ORDERING CLINICIAN: MORRIS MONTANEZ TECHNIQUE: Frontal chest was obtained at 09:28 hours. FINDINGS: CARDIOMEDIASTINAL SILHOUETTE: Cardiomediastinal silhouette is normal in size and configuration. LUNGS: Lungs are clear. ABDOMEN: No remarkable upper abdominal findings. BONES: No acute osseous changes. IMPRESSION: No acute process. Signed by Brando Farrar MD [facility] Work Phone: Radiology Study observation (narrative) [facility] Work Phone: XR Chest Single viewOrdered By: Brando Farrar on 02-29-2024 [facility] Work Phone: CT ABDOMEN AND PELVIS W IV C ONTRASTon 05-12-2023 CT ABDOMEN AND PELVIS W IV CONTRAST Patient Name: DELONTE BALTAZAR STUDY: CT ABDOMEN AND PELVIS W IV CONTRAST; 05/12/2023 10:00 am INDICATION: 37 y/o M with CHRONIC PANCREATITIS, PSEUDOCYST K86.1: Chronic pancreatitis K86.3: Pancreatic pseudocyst. LIMITATIONS: None. ACCESSION NUMBER(S): [id number] ORDERING CLINICIAN: HARISH FLOREZ TECHNIQUE: After the administration of positive oral contrast and IV nonionic contrast, spiral axial images were obtained from the xiphoid down through the symphysis pubis. Sagittal and coronal reconstruction images were generated. Bone, mediastinal, lung, and liver windows were reviewed. OMNIPAQUE ORAL SOLUTION 500 milliliter. IV contrast was Omnipaque 350, 90 mL. COMPARISON: Previous exam is from 02/06/2023. FINDINGS: LUNG BASES: No mass or pneumonia or pleural effusion in either lung base.. LIVER: Hepatomegaly, with the liver measuring 21.0 cm on the right, not significantly changed. Diffusely decreased liver density.. No liver lesion evident in this exam. GALLBLADDER: Contracted. BILE DUCTS: No intrahepatic biliary ductal dilatation. Common bile duct was within the limits of normal. SPLEEN: There was grossly stable splenomegaly with the spleen measuring 15.6 cm in length on the right. No splenic mass.. PANCREAS: There is a persistent oval-shaped but also bilobed branching d fluid collection anterior and inferior to body of the pancreas. The main portion of this measures 52 x 29 mm on image 57, decreased from 68 x 49 mm previously. An anteromedial branching component that is more rounded measures 30 x 28 mm in maximal diameter, decreased from 53 x 34 mm previously. A somewhat tubular component anteroseptal Ali measures 36 x 14 mm on image 66, decreased from 47 x 27 mm previously. There is a small residual fluid collection that extends from the posterior body and tail of the pancreas just above the left adrenal gland near the spleen measuring 31 x 11 mm on image 39 today, decreased from approximately 75 x 26 mm previously. Pancreas itself was unremarkable with no abnormal enhancement or ductal dilatation. KIDNEYS/ADRENALS: No adrenal mass or enlargement. There is a nonspecific rounded hypodensity anteriorly in the mid to upper pole of the right kidney measuring 15 x 13 mm, compared to 12 x 11 mm previously. This is not a simple cyst by CT criteria. It measures [address] density. No calcified stone, hydronephrosis, or perinephric edema in either kidney. No ureteral stone or dilatation. BLADDER/PELVIS: Urinary bladder was grossly intact. No prostate enlargement. GREAT VESSELS/RETROPERITONEUM : Abdominal aorta and IVC were intact. Retroaortic left renal vein, a variant of normal. No suspicious retroperitoneal adenopathy. No suspicious mesenteric adenopathy. No suspicious pelvic or inguinal adenopathy. PERITONEUM: No ascites. No pneumoperitoneum. No peritoneal or mesenteric mass or inflammation. BOWEL: The stomach was grossly intact. There was no small bowel dilatation or small bowel wall thickening. No small-bowel obstruction. There was no colonic wall thickening or large bowel obstruction. No edema adjacent to the colon. The cecal appendix was intact. BONES: No destructive lytic or blastic bone lesion. ABDOMINAL WALL: Tiny stable fat containing umbilical hernia.. IMPRESSION: Fluid collections adjacent to the anterior and posterior aspects of the pancreas consistent with pancreatic pseudocysts as described, both of which are smaller today. No indication of pancreatic mass or acute pancreatitis in the current exam. Mild stable hepatosplenomegaly. Nonspecific decreased liver density, most likely fatty infiltration. No ascites. There is a right renal lesion, [id number] x 13 mm, demonstrating heterogenous and increased attenuation. It has increased in size since the previous exam. Underlying malignancy is not excluded. Further evaluation with outpatient MRI of kidneys without and with contrast versus without and with contrast CT scan is recommended. (Mckenzie BR, Wade SG, Ivanna NM, et al. Management of the Incidental Renal Mass on CT: A White Paper of the ACR Incidental Findings Committee. J Am Ron Radiol. 2018;15(2):264-273.) RENALWITHCONTRAST.ACR.I F.5 Electronically signed by: MARK SOLER MD [facility] Hepatic Function Panelon Albumin BCP dye [Mass/Vol] 4.3 g/dL 3.4 - 5.0 [facility] 120 Work Phone: ALP [Catalytic activity/Vol] 77 U/L 33 - 120 [facility] 120 Work Phone: ALT With P-5'-P [Catalytic activity/Vol] 36 U/L 10 - 52 [place] [address] Work Phone: Comment on above: Patients treated wit h Sulfasalazine may generate falsely decreased results for ALT. AST With P-5'-P [Catalytic activity/Vol] 19 U/L 9 - 39 -[facility] 120 Work Phone: Bilirubin [Mass/Vol] 0.5 mg/dL 0.0 - 1.2 MP[facility] n[facility] 120 Work Phone: Bilirubin.direct [Mass/Vol] 0.1 mg/dL 0.0 - 0.3 -Un[facility] 120 Work Phone: Protein [Mass/Vol] 7.4 g/dL 6.4 - 8.2 MP[facility]i v [facility] 120 Work Phone: MRCP Abdomen w/wo Contraston 03-05-2023 MRCP Abdomen WO and W contrast IV Normal [facility] 120 Work Phone: MRCP WITH ABDOMEN WO/W CONTR Fahad 03-05-2023 MRCP WITH ABDOMEN WO/W CONTRAST Patient Name: DELONTE BALTAZAR STUDY: MRCP WITH ABDOMEN WO/W CONTRAST; 03/05/2023 9:29 am INDICATION: Pancreatic pseudocyst, chronic pancreatitis K86.3: Pancreatic pseudocyst. COMPARISON: CT 02/06/2023 ACCESSION NUMBER(S): [id number] ORDERING CLINICIAN: HARISH FLOREZ TECHNIQUE: MRI PANCREAS; Multiplanar magnetic resonance images of the abdomen were obtained including the following sequences; T2-weighted SSFSE with and without fat saturation, T1-weighted GRE in/opposed phase, DWI, fat saturated 3D-T1w GRE pre and dynamically post contrast. Radial thick slab T2w RARE MRCP and coronally reconstructed navigator gated high resolution 3-D T2w RESTORE MRCP with MIP reconstruction were also performed for MRCP. 30 ml of Gadolinium contrast agent Dotarem were administered intravenously without immediate complication. FINDINGS: LIVER: Enlarged, right lobe measuring nearly 22 cm in length. Diffuse severe signal dropout on out of phase imaging. No focal lesions identified. BILE DUCTS: No dilatation. No definite filling defect. Common bile duct measures 3 mm. GALLBLADDER: Severely contracted which limits evaluation. PANCREAS: There is diffuse pancreatic enhancement. No ductal dilatation. There are multiple irregularly-shaped peripancreatic rim enhancing fluid collections. The dominant collection along the ventral surface of the body extending along the small bowel mesentery is difficult to measure due to irregular shape. This demonstrates marked heterogeneity on T2, T1 hyperintensity, and small foci of signal dropout on out of phase imaging. These demonstrate rim but no internal enhancement. Dominant component overlying the ventral pancreatic body measures about 6.0 x 4.0 cm (annotated on series 43), decreased in size from 6.8 x 4.9 cm. A similar appearing fluid collection extending caudally from the uncinate process measures 4.5 x 3.7 cm, decreased from 5.0 x 4.2 cm. A small component extending along the left adrenal gland has decreased in size from 5.6 x 2.6 cm to 3.1 x 2.5 cm. No internal enhancement in any of the collections is identified. SPLEEN: Enlarged measuring 16.2 cm in length. ADRENAL GLANDS: Unremarkable. KIDNEYS: A few simple cysts bilaterally. Otherwise unremarkable kidneys without hydronephrosis. LYMPH NODES: No lymphadenopathy. ABDOMINAL VESSELS: Abdominal aorta is patent without aneurysm. The major visceral arterial branches are patent. Major portal venous branches are patent. IVC and visualized major branches are patent. There is a retroaortic left renal vein. BOWEL: No dilated bowel is visualized. PERITONEUM/RETROPERITON EUM: No visualized free fluid. BONES AND LOWER THORAX: Lumbar degenerative changes. Grossly clear lung bases. IMPRESSION: 1. Heterogeneous, nonenhancing peripancreatic fluid collections which may represent areas of walled-off necrosis in the setting of peripancreatic-only necrotizing pancreatitis. Collections appear slightly smaller than CT nearly 1 month ago. No intraparenchymal necrosis otherwise. 2. Severe hepatic steatosis. Hepatosplenomegaly. Electronically signed by: BRITT FERNANDES MD [facility] No Panel Informationon 03-05 14 mg/dL 3 - 200 [employer] Work Phone: Falls Screening (Age 18+)on 02-25-2023 Fall risk assessment a) No falls within the last year [employer] Work Phone: Tobacco use status CPHS b) No [employer] Work Phone: Initial Visit (Gastroenterol ogy)on 02-25-2023 Initial Visit (Gastroenterology) Diagnoses/Problems Assessed Chronic pancreatitis (577.1) (K86.1) Pancreatic pseudocyst (577.2) (K86.3) Orders Pancreatic pseudocyst Hepatic Function Panel; Status:Active; Requested for:25Feb2023; Perform:Lab Services - Lab To Draw (Blood Test); Due:26May2023;Ordered; For:Pancreatic pseudocyst; Ordered By:Harish Florez; IgG Subclass 4; Status:Active; Requested for:25Feb2023; Perform:Lab Services - Lab To Draw (Blood Test); Due:26May2023;Ordered; For:Pancreatic pseudocyst; Ordered By:Harish Florez; MRCP Abdomen w/wo Contrast; Status:Hold For - Scheduling; Requested for:25Feb2023; Perform: Radiology Services Imaging; Due:26May2023;Ordered; For:Pancreatic pseudocyst; Ordered By:Harish Florez; Radiologist to Determine Optimal Study : Y Does the patient have a Cochlear Implant, Pacemaker, Defibrilator, Pacing Wire, Brain Aneurysm Clip, Implanted Nerve or Bone Graft Simulator, Implanted Breast Tissue Revival Clerk, Glucose Monitor, or Neulasta Device? : No What are the patient's signs and symptoms? : Pancreatic pseudocyst, chronic pancreatitis Provider Impressions I informed Jean that he likely has chronic pancreatitis and has had at least this episode and 2 prior episodes of pancreatitis which were never hospitalized for. I advised him to refrain from alcohol eat a very conservative diet. His triglycerides were elevated but not high enough to be in treatment I do not believe triglycerides were the triggers for his pancreatitis. We will check IgG subclass 4 to eliminate possibility of autoimmune pancreatitis and arrange follow-up MRCP given his new development of pseudocyst. If pseudocyst become large he may need referral for endoscopic drainage. Chief Complaint Pt here for follow up pancreatitis. Pt was hospitalized at [facility] beginning of December for severe abdominal pain, which has since resolved. Denies nausea, and vomiting. History of Present IllnessDelonte is an unfortunate 37-year-old male who was hospitalized in December for acute pancreatitis at [facility]. While hospitalized his transaminases remain normal although his lipase elevated to above 6000. While hospitalized he had a CT scan of his abdomen showing pancreatitis and an MRCP which confirmed pancreatitis. He is continues have some digestive issues since discharge which have improved over the last week. He is now having normal formed stools his abdominal pain and back pain have resolved. He is eating a very restrictive diet avoiding anything that is heavily fatty or fried. He admits that his recent episode of pancreatitis was triggered by sinus drainage and possible antibiotics. He does admit to heavy drinking in the past, he quit alcohol 5 years ago and just drinks sporadically. He did consume alcohol 1 week prior to his last episode of pancreatitis. He denies any other complaints. Repeat ultrasound of his right upper quadrant done through his family doctor does show what appeared to be pseudocyst forming on his pancreas. His most recent comprehensive panel shows a mild elevated ALT at 58 with normal bilirubin normal alk phos. Blood sugar was normal. Triglycerides were 504 and his A1c was 5.5%. Review of Systems Constitutional: no fever, no chills, not feeling tired and no recent weight loss. ENT: no lymphadenopathy. Cardiovascular: no shortness of breath and no chest pain. Respiratory: no cough. Gastrointestinal: as noted in HPI. Musculoskeletal: no joint swelling. Integumentary: no rashes, no skin lesions and was no jaundiced. All other systems have been reviewed and are negative for complaint. Active Problems Problems Acute pancreatitis (577.0) (K85.90) Dyslipidemia (272.4) (E78.5) Environmental and seasonal allergies (477.8) (J30.89) Fatty infiltration of liver (571.8) (K76.0) Past Medical History Problems History of pancreatitis (V12.79) (Z87.19) Surgical History Problems History of Bypro tooth extraction Family History Mother Family history of rectal cancer (V16.0) (Z80.0) Social History Problems Consumes alcohol occasionally (V49.89) (Z78.9) Former smoker (V15.82) (Z87.891) No illicit drug use Patient consumes caffeinated coffee (V49.89) (Z78.9) Allergies Medication No Known Drug Allergies Recorded By: Gertrudis Aldana; 01/20/2023 8:42:48 AM Current Meds Medication NameInstruction Rosuvastatin Calcium 10 MG Oral TabletTAKE 1 TABLET DAILY. Vitals Vital Signs Recorded: 25Feb2023 08:58AM Heart Rate97 [id number] Alfaacpye40 Height6 ft 2 in Wrkjcy821 lb 8 oz BMI Accvcxsuat56.9 kg/m2 BSA Calculated2.78 Tobacco Useb) No Falls Screening (Age 18+)a) No falls within the last year Physical Exam Constitutional General appearance: In no acute distress. Eyes Anicteric Sclerae. Ears, Nose, Mouth, and Throat Oropharynx without lesions. Neck Supple, no lymphadenopathy. Pulmonary Respiratory effort: No increased work of breathing or signs of respiratory distress. Auscultatio (more content not included)... Normal [facility] Abdomen and Pelvis with I V Contraston 02-06-2023 CT Abdomen and Pelvis W contrast IV [facility] Work Phone: Hemoglobin A1Con 01-22-2023 Glucose [Mass/Vol] 111 mg/dL [facility] Work Phone: HbA1c (Bld) [Mass fraction] 5.5 % [facility] Work Phone: Comment on above: Diagnosis of Diabete s-Adults Non-Diabetic: < or = 5.6% Increased risk for developing diabetes: 5.7-6.4% Diagnostic of diabetes: > or = 6.5%. Monitoring of Diabetes Age (y) Therapeutic Goal (%) Adults: >18 <7.0 Pediatrics: 13-18 <7.5 7-12 <8.0 0- 6 7.5-8.5 [place] [employer]. Diabetes Care 33(S1), Nov 2009. Laboratory - Chemistry and C hemistry - challengeon 01-22-2023 Albumin BCP dye [Mass/Vol] 4.2 g/dL 3.4 - 5.0 [facility] Work Phone: ALP [Catalytic activity/Vol] 74 U/L 33 - 120 [facility] Work Phone: ALT With P-5'-P [Catalytic activity/Vol] 58 U/L above high threshold 10 - 52 [facility] Work Phone: Comment on above: Patients treated wit h Sulfasalazine may generate falsely decreased results for ALT. Anion gap [Moles/Vol] 13 mmol/L 10 - 20 [facility] Work Phone: AST With P-5'-P [Catalytic activity/Vol] 30 U/L 9 - 39 [facility] Work Phone: Bilirubin [Mass/Vol] 0.5 mg/dL 0.0 - 1.2 [facility] Work Phone: Calcium [Mass/Vol] 9.9 mg/dL 8.6 - 10.3 [facility] Work Phone: Chloride [Moles/Vol] 104 mmol/L 98 - 107 [facility] Work Phone: CO2 [Moles/Vol] 27 mmol/L 21 - 32 [facility] Work Phone: Creatinine [Mass/Vol] 0.76 mg/dL See Below [facility] Work Phone: Comment on above: Reference Range: 0.5 0 - 1.30 Glucose [Mass/Vol] 103 mg/dL above high threshold 74 - 99 [facility] Work Phone: Potassium [Moles/Vol] 4.4 mmol/L 3.5 - 5.3 [facility] Work Phone: Protein [Mass/Vol] 7.6 g/dL 6.4 - 8.2 [facility] Work Phone: Sodium [Moles/Vol] 140 mmol/L 136 - 145 [facility] Work Phone: TSH Qn 2.24 m[IU]/L See Below [facility] Work Phone: Comment on above: Reference Range: 0.4 4 - 3.98 TSH testing is performed using different testing methodology at [facility] than at other [place] [facility]. Direct result comparisons should only be made within the same method. Urea nitrogen [Mass/Vol] 11 mg/dL 6 [facility] Work Phone: Laboratory - Hematology and Cell countson 01-22-2023 Erythrocyte distribution width (RBC) [Ratio] 13.7 % See Below [facility] Work Phone: Comment on above: Reference Range: 11. 5 - 14.5 Hematocrit (Bld) [Volume fraction] 43.6 % See Below [facility] Work Phone: Comment on above: Reference Range: 41. 0 - 52.0 Hemoglobin (Bld) [Mass/Vol] 14.2 g/dL See Below [facility] Work Phone: Comment on above: Reference Range: 13. 5 - 17.5 MCHC (RBC) [Mass/Vol] 32.6 g/dL See Below [facility] Work Phone: Comment on above: Reference Range: 32. 0 - 36.0 MCV (RBC) [Entitic vol] 85 fL 80 - 100 [facility] Work Phone: Platelets (Bld) [#/Vol] 482 10*3/uL above high threshold 150 - 450 [facility] Work Phone: RBC (Bld) [#/Vol] 5.16 {x10E12/L} See Below [facility] Work Phone: Comment on above: Reference Range: 4.5 0 - 5.90 WBC (Bld) [#/Vol] 11.2 10*3/uL 4.4 - 11.3 [facility] Work Phone: Lipid Panelon 01-22-2023 Cholesterol [Mass/Vol] 223 mg/dL above high threshold 0 - 199 [facility] Work Phone: Comment on above: . AGE DESIRABLE BORD JUDAH HIGH HIGH 0-19 Y 0 - 169 170 - 199 >/= 200 20-24 Y 0 - 189 190 - 224 >/= 225 >24 Y 0 - 199 200 - 239 >/= 240 All ranges are based on fasting samples. Specific therapeutic targets will vary based on patient-specific cardiac risk.. Pediatric guidelines reference:Pediatrics 2011, 128(S5). Adult guidelines reference: NCEP ATPIII Guidelines, NATHAN 2001, 258:2486-97. Venipuncture immediately after or during the administration of Metamizole may lead to falsely low results. Testing should be performed immediately prior to Metamizole dosing. Cholesterol in HDL [Mass/Vol] 34.0 mg/dL Abnormal [facility] Work Phone: Comment on above: . AGE VERY LOW LOW N ORMAL HIGH 0-19 Y < 35 < 40 40-45 ---- 20- 24 Y ---- < 40 >45 ---- >24 Y ---- < 40 40-60 >60. Cholesterol in LDL [Mass/Vol] - 0 - 99 [facility] Work Phone: Comment on above: . NEAR BORD AGE DEJA RABLE OPTIMAL HIGH HIGH VERY HIGH 0-19 Y 0 - 109 --- 110-129 >/= 130 ---- 20-24 Y 0 - 119 --- 120-159 >/= 160 ---- >24 Y 0 - 99 100-129 130-159 160-189 >/=190.THE CALCULATION OF LDL AND VLDL ARE INACCURATEWHEN TRIGLYCERIDES ARE GREATER THAN 400 MG/DLOR WHEN THE PATIENT IS NON-FASTING. IF LDLMEASUREMENT IS NECESSARY CONTACT THE TESTINGLABORATORY FOR AN ALTERNATIVE LDL ASSAY. Cholesterol.total/Cho lesterol in HDL [Mass ratio] 6.6 {ratio} Abnormal [facility] Work Phone: Comment on above: REF VALUESDESIRABLE < 3.4HIGH RISK > 5.0 Triglyceride [Mass/Vol] 504 mg/dL above high threshold 0 - 149 [facility] Work Phone: Comment on above: . AGE DESIRABLE BORD JUDAH HIGH HIGH VERY HIGH 0 D-90 D 19 - 174 ---- ---- ----91 D- 9 Y 0 - 74 75 - 99 >/= 100 ---- 10-19 Y 0 - 89 90 - 129 >/= 130 ---- 20-24 Y 0 - 114 115 - 149 >/= 150 ---- >24 Y 0 - 149 150 - 199 200- 499 >/= 500. Venipuncture immediately after or during the administration of Metamizole may lead to falsely low results. Testing should be performed immediately prior to Metamizole dosing. Lipid Panel SEE COMMENT 0 - 40 [facility] Work Phone: Comment on above: Unable to calculate VLDL. No Panel Informationon 01-22 >90 >90 [facility] Work Phone: Comment on above: CALCULATIONS OF KAMILLE MATED GFR ARE PERFORMED USING THE 2020 CKD-EPI STUDY REFIT EQUATION WITHOUT THE RACE VARIABLE FOR THE IDMS-TRACEABLE CREATININE METHODS.https://jasn.asnjournals.org/content/early/ N.7302803389 Radiologyon 01-22-2023 US Gallbladder Normal [facility] Work Phone: Office Visit (Internal Medic ine)on 01-20-2023 Follow-up visit Diagnoses/Problems Assessed Acute pancreatitis (577.0) (K85.90) Environmental and seasonal allergies (477.8) (J30.89) Orders Acute pancreatitis Complete Blood Count; Status:Active; Requested for:20Jan2023; Perform:Lab Services - Lab To Draw (Blood Test); Due:20Apr2023;Ordered; For:Acute pancreatitis; Ordered By:Delonte Posey; Comprehensive Metabolic Panel; Status:Active; Requested for:20Jan2023; Perform:Lab Services - Lab To Draw (Blood Test); Due:20Apr2023;Ordered; For:Acute pancreatitis; Ordered By:Delonte Posey; Hemoglobin A1C; Status:Active; Requested for:20Jan2023; Perform:Lab Services - Lab To Draw (Blood Test); Due:20Apr2023;Ordered; For:Acute pancreatitis; Ordered By:Delonte Posey; Lipid Panel; Status:Active; Requested for:20Jan2023; Perform:Lab Services - Lab To Draw (Blood Test); Due:20Apr2023;Ordered; For:Acute pancreatitis; Ordered By:Delonte Posey; TSH WITH REFLEX TO FREE T4 IF ABNORMAL; Status:Active; Requested for:20Jan2023; Perform:Lab Services - Lab To Draw (Blood Test); Due:20Apr2023;Ordered; For:Acute pancreatitis; Ordered By:Delonte Posey; Ultrasound Gallbladder; Status:Active; Requested for:22Jan2023; Perform: Radiology Services Imaging;Ordered; For:Acute pancreatitis; Ordered By:Delonte Posey; Radiologist to Determine Optimal Study : Y What are the patient's signs and symptoms? : s/p acute pancreatitis Environmental and seasonal allergies Start: Amoxicillin 875 MG Oral Tablet; Take 1 tablet twice daily Rx By: Delonte Posey; Dispense: 5 Days ; #:10 Tablet; Refill: 0;For: Environmental and seasonal allergies; CRISTY = N; Verified Transmission to [address]; Last Updated By: Tamika Germain; 01/20/2023 9:09:33 AM Start: predniSONE 10 MG Oral Tablet; Take 3 TABLETS DAILY FOR 2 DAYS, 2 TABLETS DAILY FOR 2 DAYS AND 1 TABLET DAILY FOR 2 DAYS, THEN STOP Rx By: Delonte Posey; Dispense: 6 Days ; #:12 Tablet; Refill: 1;For: Environmental and seasonal allergies; CRISTY = N; Verified Transmission to [address]; Last Updated By: [employer]; 01/20/2023 9:09:32 AM Start: Gfxslhcwk-Lkvhzxpx-JO 30-2-10 MG/5ML Oral Syrup; take 5-10 mL po q4-6 hrs prn cough, cold, or allergy symptoms Rx By: Delonte Posey; Dispense: 0 Days ; #:120 Milliliter; Refill: 1;For: Environmental and seasonal allergies; CRISTY = N; Verified Transmission to [facility] [place] [address]; Last Updated By: [employer]; 01/20/2023 9:10:19 AM Patient Discussion/Summary Acute pancreatitis, resolved: We will order screening labs and repeat gallbladder ultrasound. Patient advised to keep gastroenterology appointment for now. Further recommendations pending results. Patient's work-up and admission findings were reviewed over [facility]. Patient's discharge summary reports unknown etiology of the pancreatitis Environmental and seasonal allergies: Exam fairly unremarkable. Recommend daily Claritin or similar. Quick burst of Amoxil with medium steroid taper and Bromfed written. Patient advised to obtain labs prior to starting these medicines. Follow-up as needed unless work-up dictates otherwise. Chief Complaint Patient here today to get established as a new patient and follow up hospital. Admitted for pancreatitis 2 weeks ago at [facility], offers no complaints. History of Present IllnessPatient presents to establish care. Currently, patient is a chronic illnesses and takes no daily medicines. Patient was admitted earlier this month for acute pancreatitis. Patient reports onset of fairly severe progressively worsening abdominal pain resulting in ER visit. Patient was found to have a 17,000 white count with left shift, elevated ESR of 98, mild hyponatremia, mild hypokalemia, elevated CRP at 295, admission lipase was 321, ultrasound was inconclusive due to poor study, CT showed peripancreatic stranding and a small amount of free fluid without pancreatic ductal dilatation or pancreatic or biliary duct stone. Incidental hepatic steatosis was noted as well. Patient was n.p.o. and did well after 4 days of admission and has been discharged with follow-up orders for gastroenterology. The cause of the pancreatitis is unknown. Patient does not drink alcohol habitually, does not take any medications, no known history of diabetes, or any other known precipitating event prior to onset. Acutely, patient requesting evaluation of cough. Patient has had cough that is waxed and waned over the past 1 to 2 months and has worsened recently. Patient does admit to untreated seasonal allergies. No fever, chills, nausea, diarrhea, or other constitutional signs and symptoms related to the cough. Review of Systems Constitutional: no fever. ENT: no sore throat. Cardiovascular: no chest pain. Respiratory: no shortness of breath during exertion. Gastrointestinal: as noted in HPI. Genitourinary: no dysuria. Musculoskeletal: no arthralgias. Skin: no rashes. Neurological: no headaches. Endocrine: as noted in HPI. Acti (more content not included)... Normal [employer] Tobacco Screening.on 023 Adult depression screening assessment No [facility] Work Phone: Fall risk assessment a) No falls within the last year [facility] Work Phone: Tobacco use status CPHS b) No [facility] Work Phone: C REACTIVE PROTEINon 023 CRP [Mass/Vol] 295.3 mg/L High 0-10.0 [facility] Comment on above: Performed By: #### A CBC, LIPA2, CMPF, ESR, CREACT, MG #### Testing performed at [address] [address] CBCon 01-10-2023 ABSOLUTE BAS 0.0 10*3/uL Normal 0.0-0.2 [facility] Comment on above: Performed By: #### A CBC, LIPA2, CMPF, ESR, CREACT, MG #### Testing performed at [address] [address] ABSOLUTE EOS 0.1 10*3/uL Normal 0.0-0.7 [facility] Comment on above: Performed By: #### A CBC, LIPA2, CMPF, ESR, CREACT, MG #### Testing performed at [address] [address] ABSOLUTE NEUTROPHIL COUNT 13.8 10*3/uL High 1.4-6.5 [facility] Comment on above: Performed By: #### A CBC, LIPA2, CMPF, ESR, CREACT, MG #### Testing performed at [address] [address] Basophils/100 WBC (Bld) 0.3 % Normal 0.0-2.0 [facility] Comment on above: Performed By: #### A CBC, LIPA2, CMPF, ESR, CREACT, MG #### Testing performed at [address] [address] DTYPE AUTO DIFF Normal [facility] Comment on above: Performed By: #### A CBC, LIPA2, CMPF, ESR, CREACT, MG #### Testing performed at [address] [address] Eosinophils/100 WBC (Bld) 0.6 % Normal 0.0-11.0 [facility] Comment on above: Performed By: #### A CBC, LIPA2, CMPF, ESR, CREACT, MG #### Testing performed at [address] [address] Lymphocytes (Bld) [#/Vol] 2.4 10*3/uL Normal 1.2-3.4 [facility] Comment on above: Performed By: #### A CBC, LIPA2, CMPF, ESR, CREACT, MG #### Testing performed at [address] [address] Lymphocytes/100 WBC (Bld) 13.5 % Low 20.0-55.0 [facility] Comment on above: Performed By: #### A CBC, LIPA2, CMPF, ESR, CREACT, MG #### Testing performed at [address] [address] Monocytes (Bld) [#/Vol] 1.4 10*3/uL High 0.0-0.7 [facility] Comment on above: Performed By: #### A CBC, LIPA2, CMPF, ESR, CREACT, MG #### Testing performed at [address] [address] Monocytes/100 WBC (Bld) 7.8 % Normal 0.0-10.0 [facility] Comment on above: Performed By: #### A CBC, LIPA2, CMPF, ESR, CREACT, MG #### Testing performed at [address] [address] Neutrophils/100 WBC (Bld) 77.8 % High 37.0-75.0 [facility] Comment on above: Performed By: #### A CBC, LIPA2, CMPF, ESR, CREACT, MG #### Testing performed at [address] [address] Erythrocyte distribution width (RBC) [Ratio] 14.8 % High 11.5-14.5 [facility] Comment on above: Performed By: #### A CBC, LIPA2, CMPF, ESR, CREACT, MG #### Testing performed at [address] [address] Hematocrit (Bld) [Volume fraction] 35.0 % Low 42.0-52.0 [facility] Comment on above: Performed By: #### A CBC, LIPA2, CMPF, ESR, CREACT, MG #### Testing performed at [address] [address] Hemoglobin (Bld) [Mass/Vol] 11.6 g/dL Low 14.0-18.0 [facility] Comment on above: Performed By: #### A CBC, LIPA2, CMPF, ESR, CREACT, MG #### Testing performed at [address] [address] MCH (RBC) [Entitic mass] 27.9 pg Normal 26.0-35.0 [facility] Comment on above: Performed By: #### A CBC, LIPA2, CMPF, ESR, CREACT, MG #### Testing performed at [address] [address] MCHC (RBC) [Mass/Vol] 33.2 g/dL Normal 27.0-37.0 [facility] Comment on above: Performed By: #### A CBC, LIPA2, CMPF, ESR, CREACT, MG #### Testing performed at [address] [address] MCV (RBC) [Entitic vol] 83.9 fL Normal 80.0-100.0 [facility] Comment on above: Performed By: #### A CBC, LIPA2, CMPF, ESR, CREACT, MG #### Testing performed at [address] [address] Platelet mean volume (Bld) [Entitic vol] 7.5 fL Normal 7.4-11.0 [facility] Comment on above: Performed By: #### A CBC, LIPA2, CMPF, ESR, CREACT, MG #### Testing performed at [address] [address] Platelets (Bld) [#/Vol] 279 10*3/uL Normal 130.0-400.0 [facility] Comment on above: Performed By: #### A CBC, LIPA2, CMPF, ESR, CREACT, MG #### Testing performed at [address] [address] RBC (Bld) [#/Vol] 4.17 10*6/uL Normal 4.0-6.1 [facility] Comment on above: Performed By: #### A CBC, LIPA2, CMPF, ESR, CREACT, MG #### Testing performed at [address] [address] WBC (Bld) [#/Vol] 17.7 10*3/uL High 3.6-11.0 [facility] Comment on above: Performed By: #### A CBC, LIPA2, CMPF, ESR, CREACT, MG #### Testing performed at [address] [address] CMP FASTINGon 01-10-2023 A:G RATIO 0.8 RATIO Low 1.3-2.2 [facility] Comment on above: Performed By: #### A CBC, LIPA2, CMPF, ESR, CREACT, MG #### Testing performed at [address] [address] ALBUMIN 3.2 G/dl Low 3.5-5.0 [facility] Comment on above: Performed By: #### A CBC, LIPA2, CMPF, ESR, CREACT, MG #### Testing performed at [address] [address] ALP [Catalytic activity/Vol] 77 U/L Normal 38-126 [facility] Comment on above: Performed By: #### A CBC, LIPA2, CMPF, ESR, CREACT, MG #### Testing performed at [address] [address] ALT [Catalytic activity/Vol] 134 U/L High 17-63 [facility] Comment on above: Performed By: #### A CBC, LIPA2, CMPF, ESR, CREACT, MG #### Testing performed at [address] [address] AST [Catalytic activity/Vol] 23 U/L Normal 15-41 [facility] Comment on above: Performed By: #### A CBC, LIPA2, CMPF, ESR, CREACT, MG #### Testing performed at [address] [address] Bilirubin [Mass/Vol] 0.8 mg/dL Normal 0.2-1.2 [facility] Comment on above: Performed By: #### A CBC, LIPA2, CMPF, ESR, CREACT, MG #### Testing performed at [address] [address] Calcium [Mass/Vol] 8.3 mg/dL Low 8.4-10.2 [facility] Comment on above: Performed By: #### A CBC, LIPA2, CMPF, ESR, CREACT, MG #### Testing performed at [address] [address] Chloride [Moles/Vol] 98 mmol/L Normal 98-107 [facility] Comment on above: Performed By: #### A CBC, LIPA2, CMPF, ESR, CREACT, MG #### Testing performed at [address] [address] CO2 [Moles/Vol] 25 mmol/L Normal 22-30 [facility] Comment on above: Performed By: #### A CBC, LIPA2, CMPF, ESR, CREACT, MG #### Testing performed at [address] [address] Creatinine [Mass/Vol] 0.55 mg/dL Low 0.66-1.25 [facility] Comment on above: Performed By: #### A CBC, LIPA2, CMPF, ESR, CREACT, MG #### Testing performed at [address] [address] EST. GFR, 217 ml/min/1.73sq.m Normal [facility] Comment on above: Performed By: #### A CBC, LIPA2, CMPF, ESR, CREACT, MG #### Testing performed at [address] [address] EST. GFR,Non 179 ml/min/1.73sq.m Normal [facility] Comment on above: Performed By: #### A CBC, LIPA2, CMPF, ESR, CREACT, MG #### [place] [address] GFR Information Average GFR for 30-3 9 years old = 107. Normal [facility] Comment on above: Result Comment: Vice President [employer] joel Kidney disease, GFR = <60. Kidney failure, GFR = <15. The GFR estimate is not adjusted for extreme body surface area or acute process, nor has it been validated for women or ethnic groups other than and . Performed By: #### A CBC, LIPA2, CMPF, ESR, CREACT, MG #### Testing performed at [place] [id number] Glucose [Mass/Vol] 79 mg/dL Normal 70-100 [facility] Comment on above: Result Comment: NORMAL <100 mg/dL PREDIABETES 101-126 mg/dL DIABETES 126 mg/dL or higher Performed By: #### A CBC, LIPA2, CMPF, ESR, CREACT, MG #### [place] [address] Potassium [Moles/Vol] 3.3 mmol/L Low 3.5-5.1 [facility] Comment on above: Performed By: #### A CBC, LIPA2, CMPF, ESR, CREACT, MG #### Testing performed at [place] [id number] Protein [Mass/Vol] 7.1 g/dL Normal 6.3-8.2 [facility] Comment on above: Performed By: #### A CBC, LIPA2, CMPF, ESR, CREACT, MG #### Testing performed at [address] [address] Sodium [Moles/Vol] 133 mmol/L Low 136-145 [facility] Comment on above: Performed By: #### A CBC, LIPA2, CMPF, ESR, CREACT, MG #### Testing performed at [address] [address] Urea nitrogen [Mass/Vol] 9 mg/dL Normal 7-20 [facility] Comment on above: Performed By: #### A CBC, LIPA2, CMPF, ESR, CREACT, MG #### Testing performed at [address] [address] ESRon 01-10-2023 ESR (Bld) [Velocity] 90 mm/h High 0-15 [facility] Comment on above: Performed By: #### A CBC, LIPA2, CMPF, ESR, CREACT, MG #### Testing performed at [address] [address] LIPASE,SERUMon 01-10-2023 LIPASE,SERUM 47 U/L Normal 23-300 [facility] Comment on above: Performed By: #### A CBC, LIPA2, CMPF, ESR, CREACT, MG #### Testing performed at [address] [address] MAGNESIUMon 01-10-2023 Magnesium [Mass/Vol] 2.2 mg/dL Normal 1.6-2.3 [facility] Comment on above: Performed By: #### A CBC, LIPA2, CMPF, ESR, CREACT, MG ####Testing performed at [address] [address] BLOOD CULTUREon 01-09-2023 Bacteria identified Cx Nom (Bld) SPECIMEN DESCRIPTION PERIPHERAL BLOOD DRAW SPECIAL REQUESTS RT H CULTURE NO GROWTH 5 DAYS * Result Note: Testing performed at [place] [address] * REPORT STATUS 01/14/2023 * Result Note: FINAL * Normal [facility] Comment on above: Performed By: #### B LC #### Testing performed at [address] [address] Testing performed at [facility] [address] [place] [address] Bacteria identified Cx Nom (Bld) SPECIMEN DESCRIPTION PERIPHERAL BLOOD DRAW SPECIAL REQUESTS R AC CULTURE NO GROWTH 5 DAYS * Result Note: Testing performed at [place], [place] [address] * REPORT STATUS 01/14/2023 * Result Note: FINAL * Normal [facility] Comment on above: Performed By: #### B LC ####Testing performed at [address] [address]Dscbwlg performed at [facility] [place] [address] C REACTIVE PROTEINon 023 CRP [Mass/Vol] 294.6 mg/L High 0-10.0 [facility] Comment on above: Performed By: #### M RSAST #### Testing performed at [address] [address] CBCon 01-09-2023 ABSOLUTE BAS 0.0 10*3/uL Normal 0.0-0.2 [facility] Comment on above: Performed By: #### M RSAST #### Testing performed at [address] [address] ABSOLUTE EOS 0.1 10*3/uL Normal 0.0-0.7 [facility] Comment on above: Performed By: #### M RSAST #### Testing performed at [address] [address] ABSOLUTE NEUTROPHIL COUNT 15.1 10*3/uL High 1.4-6.5 [facility] Comment on above: Performed By: #### M RSAST #### Testing performed at [address] [address] Basophils/100 WBC (Bld) 0.3 % Normal 0.0-2.0 [facility] Comment on above: Performed By: #### M RSAST #### Testing performed at [address] [address] DTYPE AUTO DIFF Normal [facility] Comment on above: Performed By: #### M RSAST #### Testing performed at [address] [place] [address] Eosinophils/100 WBC (Bld) 0.4 % Normal 0.0-11.0 [facility] Comment on above: Performed By: #### M RSAST #### Testing performed at [address] [address] Lymphocytes (Bld) [#/Vol] 2.2 10*3/uL Normal 1.2-3.4 [facility] Comment on above: Performed By: #### M RSAST #### Testing performed at [address] [address] Lymphocytes/100 WBC (Bld) 11.6 % Low 20.0-55.0 [facility] Comment on above: Performed By: #### M RSAST #### Testing performed at [address] [address] Monocytes (Bld) [#/Vol] 1.4 10*3/uL High 0.0-0.7 [facility] Comment on above: Performed By: #### M RSAST #### Testing performed at [address] [place] [address] Monocytes/100 WBC (Bld) 7.3 % Normal 0.0-10.0 [facility] Comment on above: Performed By: #### M RSAST #### Testing performed at [address] [address] Neutrophils/100 WBC (Bld) 80.4 % High 37.0-75.0 [facility] Comment on above: Performed By: #### M RSAST #### Testing performed at [address] [place] [address] Erythrocyte distribution width (RBC) [Ratio] 14.8 % High 11.5-14.5 [facility] Comment on above: Performed By: #### M RSAST #### Testing performed at [address] [place] [address] Hematocrit (Bld) [Volume fraction] 37.5 % Low 42.0-52.0 [facility] Comment on above: Performed By: #### M RSAST #### Testing performed at [address] [place] [address] Hemoglobin (Bld) [Mass/Vol] 12.5 g/dL Low 14.0-18.0 [facility] Comment on above: Performed By: #### M RSAST #### Testing performed at [address] [address] MCH (RBC) [Entitic mass] 28.0 pg Normal 26.0-35.0 [facility] Comment on above: Performed By: #### M RSAST #### Testing performed at [address] [address] MCHC (RBC) [Mass/Vol] 33.2 g/dL Normal 27.0-37.0 [facility] Comment on above: Performed By: #### M RSAST #### Testing performed at [address] [address] MCV (RBC) [Entitic vol] 84.2 fL Normal 80.0-100.0 [facility] Comment on above: Performed By: #### M RSAST #### Testing performed at [address] [address] Platelet mean volume (Bld) [Entitic vol] 7.4 fL Normal 7.4-11.0 [facility] Comment on above: Performed By: #### M RSAST #### Testing performed at [address] [address] Platelets (Bld) [#/Vol] 230 10*3/uL Normal 130.0-400.0 [facility] Comment on above: Performed By: #### M RSAST #### Testing performed at [address] [address] RBC (Bld) [#/Vol] 4.45 10*6/uL Normal 4.0-6.1 [facility] Comment on above: Performed By: #### M RSAST #### Testing performed at [address] [address] WBC (Bld) [#/Vol] 18.8 10*3/uL High 3.6-11.0 [facility] Comment on above: Performed By: #### M RSAST #### Testing performed at [address] [address] CMP FASTINGon 01-09-2023 A:G RATIO 0.8 RATIO Low 1.3-2.2 [facility] Comment on above: Performed By: #### M RSAST #### Testing performed at [address] [address] ALBUMIN 3.3 G/dl Low 3.5-5.0 [facility] Comment on above: Performed By: #### M RSAST #### Testing performed at [address] [address] ALP [Catalytic activity/Vol] 84 U/L Normal 38-126 [facility] Comment on above: Performed By: #### M RSAST #### Testing performed at [address] [address] ALT [Catalytic activity/Vol] 198 U/L High 17-63 [facility] Comment on above: Performed By: #### M RSAST #### Testing performed at [address] [address] AST [Catalytic activity/Vol] 27 U/L Normal 15-41 [facility] Comment on above: Performed By: #### M RSAST #### Testing performed at [address] [address] Bilirubin [Mass/Vol] 0.9 mg/dL Normal 0.2-1.2 [facility] Comment on above: Performed By: #### M RSAST #### Testing performed at [address] [address] Calcium [Mass/Vol] 8.4 mg/dL Normal 8.4-10.2 [facility] Comment on above: Performed By: #### M RSAST #### Testing performed at [address] [address] Chloride [Moles/Vol] 100 mmol/L Normal 98-107 [facility] Comment on above: Performed By: #### M RSAST #### Testing performed at [address] [address] CO2 [Moles/Vol] 25 mmol/L Normal 22-30 [facility] Comment on above: Performed By: #### M RSAST #### Testing performed at [address] [address] Creatinine [Mass/Vol] 0.59 mg/dL Low 0.66-1.25 [facility] Comment on above: Performed By: #### M RSAST #### Testing performed at [address] [address] EST. GFR, 200 ml/min/1.73sq.m [facility] Comment on above: Performed By: #### M RSAST #### Testing performed at [address] [address] EST. GFR,Non 165 ml/min/1.73sq.m [facility] Comment on above: Performed By: #### M RSAST #### Testing performed at [address] [address] GFR Information Average GFR for 30-3 9 years old = 107. Normal [facility] Comment on above: Result Comment: Vice President [employer] joel Kidney disease, GFR = <60. Kidney failure, GFR = <15. The GFR estimate is not adjusted for extreme body surface area or acute process, nor has it been validated for women or ethnic groups other than and . Performed By: #### M RSAST #### Testing performed at [address] [address] Glucose [Mass/Vol] 93 mg/dL Normal 70-100 [facility] Comment on above: Result Comment: NORMAL <100 mg/dL PREDIABETES 101-126 mg/dL DIABETES 126 mg/dL or higher Performed By: #### M RSAST #### Testing performed at [address] [address] Potassium [Moles/Vol] 3.4 mmol/L Low 3.5-5.1 [facility] Comment on above: Performed By: #### M RSAST #### Testing performed at [address] [address] Protein [Mass/Vol] 7.2 g/dL Normal 6.3-8.2 [facility] Comment on above: Performed By: #### M RSAST #### Testing performed at [address] [address] Sodium [Moles/Vol] 134 mmol/L Low 136-145 [facility] Comment on above: Performed By: #### M RSAST #### Testing performed at [facility] [address] [place] [address] Urea nitrogen [Mass/Vol] 8 mg/dL Normal 7-20 [facility] Comment on above: Performed By: #### M RSAST #### Testing performed at [address] [address] [address] ABDOMEN/PELVIS WITH CONTR Fahad 01-09-2023 CT ABDOMEN/PELVIS WITH CONTRAST EXAMINATION: CT ABDOMEN/PELVIS WITH CONTRAST, 01/09/2023 9:08 AM EST HISTORY: Worsening pancreatitis COMPARISON: MRI MRCP dated 01/08/2023, ultrasound abdomen study dated 01/07/2023 TECHNIQUE: CT scan of the abdomen and pelvis was performed with IV contrast. CT dose reduction technique was used, including Automated Exposure Control. FINDINGS: Partially visualized likely [id number] atelectatic changes in the right lower lung field and the left lower lung field. Small left pleural effusion. Minimal right pleural effusion. Views of the liver and spleen fail to demonstrate evidence of focal mass in either organ. Mild to moderate fatty infiltration of the liver. No evidence of dilated intrahepatic bile ducts. No obvious gallbladder wall thickening or pericholecystic fluid. Common bile duct does not appear enlarged. Adrenal glands appear grossly unremarkable. Mild generalized edematous change of the pancreas without gross evidence of pancreatic necrosis. There appears be grossly unremarkable enhancement of the pancreas with suggestion of mild fatty infiltration of the uncinate process. There is moderate peripancreatic fatty stranding and ill-defined fluid compatible with edema/phlegmon related to inflammatory changes. No evidence of discrete abscess of identified. Fluid extends inferiorly on the left to the level of the anterior renal fascia. Overall findings appear similar to the MRI exam. Stomach appears grossly unremarkable. Bowel loops appear grossly unremarkable. Visualized vascular structures are grossly intact. No evidence of adenopathy in the retroperitoneum. No evidence of obstructive uropathy. Finding compatible with a 1 cm cyst in the anterior right kidney. Likely 1 cm parapelvic cyst in the left kidney. Pelvis: Tiny fat filled umbilical hernia without bowel content. Bladder appears grossly unremarkable. There is a mild degree of fluid noted in the midline at and superior to the bladder assumed related to the above-noted pancreatitis. Prostate gland is grossly within normal limits for size. Perirectal fat planes are grossly intact. Bowel loops appear grossly unremarkable. Visualized vascular structures are grossly intact. No lymphadenopathy. The appendix is visualized and appears unremarkable. Mild degenerative changes visualized lower dorsal spine and the lumbar spine. Slight convexity of the lower dorsal spine to the left and the lumbar spine to the right. IMPRESSION: CT abdomen and CT pelvis studies demonstrate findings compatible with pancreatitis. Moderate surrounding peripancreatic inflammatory edema/phlegmon changes related to the pancreatitis. No evidence of discrete abscess. Overall findings appear similar to the MRI exam. No convincing evidence of pancreatic necrosis. Atelectatic changes in the lower lung orellana. Small left pleural effusion, minimal right pleural effusion. Mild to moderate fatty infiltration of the liver. Findings compatible with cyst in each kidney as noted. Tiny fat filled umbilical hernia. Normal [facility] ESRon 01-09-2023 ESR (Bld) [Velocity] 82 mm/h High 0-15 [facility] Comment on above: Performed By: #### M RSAST #### Testing performed at [address] [address] LIPASE,SERUMon 01-09-2023 LIPASE,SERUM 47 U/L Normal 23-300 [facility] Comment on above: Performed By: #### M RSAST #### Testing performed at [address] [address] PHOSPHOROUSon 01-09-2023 PHOSPHOROUS 2.4 MG/DL Low 2.5-4.5 [facility] Comment on above: Performed By: #### B LC #### Testing performed at [address] [address] Testing performed at [address] [address] C REACTIVE PROTEINon 023 CRP [Mass/Vol] 229.5 mg/L High 0-10.0 [facility] Comment on above: Performed By: #### C OVID #### Testing performed at [address] [address] CBCon 01-08-2023 ABSOLUTE BAS 0.0 10*3/uL Normal 0.0-0.2 [facility] Comment on above: Performed By: #### C OVID #### Testing performed at [address] [place] [address] ABSOLUTE EOS 0.0 10*3/uL Normal 0.0-0.7 [facility] Comment on above: Performed By: #### C OVID #### Testing performed at [address] [address] ABSOLUTE NEUTROPHIL COUNT 17.1 10*3/uL High 1.4-6.5 [facility] Comment on above: Performed By: #### C OVID #### Testing performed at [address] [address] Basophils/100 WBC (Bld) 0.2 % Normal 0.0-2.0 [facility] Comment on above: Performed By: #### C OVID #### Testing performed at [address] [address] DTYPE AUTO DIFF Normal [facility] Comment on above: Performed By: #### C OVID #### Testing performed at [address] [address] Eosinophils/100 WBC (Bld) 0.1 % Normal 0.0-11.0 [facility] Comment on above: Performed By: #### C OVID #### Testing performed at [address] [address] Lymphocytes (Bld) [#/Vol] 2.2 10*3/uL Normal 1.2-3.4 [facility] Comment on above: Performed By: #### C OVID #### Testing performed at [address] [address] Lymphocytes/100 WBC (Bld) 10.6 % Low 20.0-55.0 [facility] Comment on above: Performed By: #### C OVID #### Testing performed at [address] [address] Monocytes (Bld) [#/Vol] 1.3 10*3/uL High 0.0-0.7 [facility] Comment on above: Performed By: #### C OVID #### Testing performed at [address] [address] Monocytes/100 WBC (Bld) 6.5 % Normal 0.0-10.0 [facility] Comment on above: Performed By: #### C OVID #### Testing performed at [address] [address] Neutrophils/100 WBC (Bld) 82.6 % High 37.0-75.0 [facility] Comment on above: Performed By: #### C OVID #### Testing performed at [address] [address] Erythrocyte distribution width (RBC) [Ratio] 14.9 % High 11.5-14.5 [facility] Comment on above: Performed By: #### C OVID #### Testing performed at [address] [address] Hematocrit (Bld) [Volume fraction] 39.3 % Low 42.0-52.0 [facility] Comment on above: Performed By: #### C OVID #### Testing performed at [address] [address] Hemoglobin (Bld) [Mass/Vol] 13.1 g/dL Low 14.0-18.0 [facility] Comment on above: Performed By: #### C OVID #### Testing performed at [address] [address] MCH (RBC) [Entitic mass] 28.1 pg Normal 26.0-35.0 [facility] Comment on above: Performed By: #### C OVID #### Testing performed at [address] [address] MCHC (RBC) [Mass/Vol] 33.4 g/dL Normal 27.0-37.0 [facility] Comment on above: Performed By: #### C OVID #### Testing performed at [address] [address] MCV (RBC) [Entitic vol] 84.0 fL Normal 80.0-100.0 [facility] Comment on above: Performed By: #### C OVID #### Testing performed at [address] [address] Platelet mean volume (Bld) [Entitic vol] 7.4 fL Normal 7.4-11.0 [facility] Comment on above: Performed By: #### C OVID #### Testing performed at [address] [address] Platelets (Bld) [#/Vol] 255 10*3/uL Normal 130.0-400.0 [facility] Comment on above: Performed By: #### C OVID #### Testing performed at [address] [address] RBC (Bld) [#/Vol] 4.68 10*6/uL Normal 4.0-6.1 [facility] Comment on above: Performed By: #### C OVID #### Testing performed at [address] [address] WBC (Bld) [#/Vol] 20.7 10*3/uL High 3.6-11.0 [facility] Comment on above: Performed By: #### C OVID #### Testing performed at [address] [address] CMP FASTINGon 01-08-2023 A:G RATIO 1.0 RATIO Low 1.3-2.2 [facility] Comment on above: Performed By: #### C OVID #### Testing performed at [address] [address] ALBUMIN 3.5 G/dl Normal 3.5-5.0 [facility] Comment on above: Performed By: #### C OVID #### Testing performed at [address] [address] ALP [Catalytic activity/Vol] 88 U/L Normal 38-126 [facility] Comment on above: Performed By: #### C OVID #### Testing performed at [address] [address] ALT [Catalytic activity/Vol] 321 U/L High 17-63 [facility] Comment on above: Performed By: #### C OVID #### Testing performed at [address] [address] AST [Catalytic activity/Vol] 46 U/L High 15-41 [facility] Comment on above: Performed By: #### C OVID #### Testing performed at [address] [address] Bilirubin [Mass/Vol] 1.2 mg/dL Normal 0.2-1.2 [facility] Comment on above: Performed By: #### C OVID #### Testing performed at [address] [address] Calcium [Mass/Vol] 8.6 mg/dL Normal 8.4-10.2 [facility] Comment on above: Performed By: #### C OVID #### Testing performed at [address] [address] Chloride [Moles/Vol] 104 mmol/L Normal 98-107 [facility] Comment on above: Performed By: #### C OVID #### Testing performed at [address] [address] CO2 [Moles/Vol] 25 mmol/L Normal 22-30 [facility] Comment on above: Performed By: #### C OVID #### Testing performed at [address] [address] Creatinine [Mass/Vol] 0.65 mg/dL Low 0.66-1.25 [facility] Comment on above: Performed By: #### C OVID #### Testing performed at [address] [address] EST. GFR, 179 ml/min/1.73sq.m [facility] Comment on above: Performed By: #### C OVID #### Testing performed at [address] [address] EST. GFR,Non 148 ml/min/1.73sq.m [facility] Comment on above: Performed By: #### C OVID #### Testing performed at [address] [address] GFR Information Average GFR for 30-3 9 years old = 107. Normal [facility] Comment on above: Result Comment: Vice President [employer] joel Kidney disease, GFR = <60. Kidney failure, GFR = <15. The GFR estimate is not adjusted for extreme body surface area or acute process, nor has it been validated for women or ethnic groups other than and . Performed By: #### C OVID #### Testing performed at [address] [address] Glucose [Mass/Vol] 124 mg/dL High 70-100 [facility] Comment on above: Result Comment: NORMAL <100 mg/dL PREDIABETES 101-126 mg/dL DIABETES 126 mg/dL or higher Performed By: #### C OVID #### Testing performed at [address] [address] Potassium [Moles/Vol] 3.5 mmol/L Normal 3.5-5.1 [facility] Comment on above: Performed By: #### C OVID #### Testing performed at [address] [address] Protein [Mass/Vol] 6.9 g/dL Normal 6.3-8.2 [facility] Comment on above: Performed By: #### C OVID #### Testing performed at [address] [address] Sodium [Moles/Vol] 137 mmol/L Normal 136-145 [facility] Comment on above: Performed By: #### C OVID #### Testing performed at [address] [address] Urea nitrogen [Mass/Vol] 12 mg/dL Normal 7-20 [facility] Comment on above: Performed By: #### C OVID #### Testing performed at [address] [address] ESRon 01-08-2023 ESR (Bld) [Velocity] 58 mm/h High 0-15 [facility] Comment on above: Result Comment: FRANCISCO ECTED ON 01/08 AT 0919: PREVIOUSLY REPORTED 68 Performed By: #### C OVID #### Testing performed at [address] [address] HEP PANEL A,B,Con 01-08-2023 HEP A AB TOTAL Negative Normal NEGATIVE [facility] Comment on above: Performed By: #### A HEPP ####Testing performed at [address] [place] [address] HEP B CORE AB Negative Normal NEGATIVE [facility] Comment on above: Performed By: #### A HEPP ####Testing performed at [address] [address] HEP B SURFACE AB Negative Abnormal POSITIVE [facility] Comment on above: Result Comment: Clinical Interpretation of Immune Status Negative: patient is considered to be not immune to infection with HBV Intermediate: unable to determine if anti-HBs is present at levels consistent with immunity Positive: anti-HBs detected, patient is considered to be immune to infection with HBV Performed By: #### A HEPP ####Testing performed at [address] [address] HEP C AB Negative Normal NEGATIVE [facility] Comment on above: Performed By: #### A HEPP ####Testing performed at [address] [place] [address] HEP B SURFACE AG Negative Normal NEGATIVE [facility] Comment on above: Performed By: #### A HEPP ####Testing performed at [address] [address] LIPASE,SERUMon 01-08-2023 LIPASE,SERUM 321 U/L Critically high 23-300 [facility] Comment on above: Result Comment: CALL FRANCISCO ANDREWS ON [id number] AT 0810 BY MM CORRECTED ON 01/08 AT 0817: PREVIOUSLY REPORTED 321 Performed By: #### M RSAST #### Testing performed at [address] [address] LIPASE,SERUM 82 U/L Normal 23-300 [facility] Comment on above: Performed By: #### C OVID #### Testing performed at [address] [address] MAGNESIUMon 01-08-2023 Magnesium [Mass/Vol] 2.1 mg/dL Normal 1.6-2.3 [facility] Comment on above: Performed By: #### C OVID #### Testing performed at [address] [address] MRI MRCPon 01-08-2023 MRI MRCP CLINICAL HISTORY: Pancreatitis, abdominal pain. EXAMINATION: Unenhanced, enhanced MRI of the abdomen: 01/08/2023. COMPARISON: Enhanced CT scan of the abdomen and pelvis: 01/06/2023. Right upper quadrant ultrasound 01/07/2023. TECHNIQUE: Multiplanar, multisequence images through upper abdomen without intravenous contrast were obtained. Sagittal, coronal MIP (maximum intensity projection) for MRCP sequences were also obtained. The gallbladder demonstrates no filling defects, wall thickening or pericholecystic fluid. The study overall is limited secondary to patient's large body habitus. However, the segmentally visualized portions of the pancreatic, bile ducts are of normal caliber. Since some of the segments are not well seen, if there is pathology in these nonvisualized segments would be difficult to exclude. The common bile duct tapers normally to ampulla. No intrahepatic biliary ductal dilatation is seen. For a noncontrast study the liver is homogeneously low in density compatible with fatty liver. Visualized spleen, adrenal glands, kidneys appear normal. There is edematous appearance to the pancreas with induration of surrounding fat which is not as well seen as on the CT examination. The abdominal aorta has normal caliber. There is no retroperitoneal adenopathy. IMPRESSION: 1. Limited study secondary to patient's large body habitus as well as suboptimally utilized technique. However, within limits, the visualized segments of common bile duct, common hepatic duct and the intrahepatic ducts are of normal caliber with normal tapering of common bile duct at the ampulla. There are no definite filling defects to suggest choledocholithiasis or mass. 2. Segmentally visualized pancreatic duct is of normal caliber as well. 3. No acute pathology involving the gallbladder such as cholelithiasis. 4. Fatty infiltration of the liver. 5. There are inflammatory changes surrounding the pancreas, best seen on the T2-weighted images with induration of surrounding fat, however, no comment can be made about necrosis of the pancreas as this study is performed without contrast. Overall the pancreatitis is better seen on the CT examination. Normal [facility] PHOSPHOROUSon 01-08-2023 PHOSPHOROUS 2.5 MG/DL Normal 2.5-4.5 [facility] Comment on above: Performed By: #### C OVID #### Testing performed at [address] [address] PROTIMEon 01-08-2023 INR Coag (PPP) [Relative time] 1.09 {INR} Normal 0.85-1.10 [facility] Comment on above: Result Comment: 2.0-3.0 THERAPEUTIC RANGE 2.5-3.5 MECHANICAL VALVE RANGE Performed By: #### C OVID #### Testing performed at [address] [address] PT Coag (PPP) [Time] 14.2 s Normal 11.8-14.4 [facility] Comment on above: Performed By: #### C OVID #### Testing performed at [address] [address] ACETAMINOPHENon 01-07-2023 Acetaminophen [Mass/Vol] ug/mL Normal 5.0-20.0 [facility] Comment on above: Performed By: #### A CETM2 ####Testing performed at [address] [address] BLOOD CULTUREon 01-07-2023 Bacteria identified Cx Nom (Bld) SPECIMEN DESCRIPTION PERIPHERAL BLOOD DRAW SPECIAL REQUESTS LH CULTURE NO GROWTH 5 DAYS * Result Note: Testing performed at [place] [address] * REPORT STATUS 01/12/2023 * Result Note: FINAL * Normal [facility] Comment on above: Performed By: #### B LC ####Testing performed at [address] [address]X[place] [address] Bacteria identified Cx Nom (Bld) SPECIMEN DESCRIPTION PERIPHERAL BLOOD DRAW SPECIAL REQUESTS RAC CULTURE NO GROWTH 5 DAYS * Result Note: Testing performed at [place] [address] * REPORT STATUS 01/12/2023 * Result Note: FINAL * Normal [facility] Comment on above: Performed By: #### B LC ####Testing performed at [address] [address]Epfhqgb performed at [place] [id number] C REACTIVE PROTEINon 023 CRP [Mass/Vol] 165.2 mg/L High 0-10.0 [facility] Comment on above: Performed By: #### M RSAST #### Testing performed at [address] [address] CBCon 01-07-2023 ABSOLUTE BAS 0.1 10*3/uL Normal 0.0-0.2 [facility] Comment on above: Performed By: #### M RSAST #### Testing performed at [address] [place] [address] ABSOLUTE EOS 0.0 10*3/uL Normal 0.0-0.7 [facility] Comment on above: Performed By: #### M RSAST #### Testing performed at [address] [address] ABSOLUTE NEUTROPHIL COUNT 14.4 10*3/uL High 1.4-6.5 [facility] Comment on above: Performed By: #### M RSAST #### Testing performed at [address] [address] Basophils/100 WBC (Bld) 0.4 % Normal 0.0-2.0 [facility] Comment on above: Performed By: #### M RSAST #### Testing performed at [address] [address] DTYPE AUTO DIFF Normal [facility] Comment on above: Performed By: #### M RSAST #### Testing performed at [address] [address] Eosinophils/100 WBC (Bld) 0.0 % Normal 0.0-11.0 [facility] Comment on above: Performed By: #### M RSAST #### Testing performed at [address] [address] Lymphocytes (Bld) [#/Vol] 1.9 10*3/uL Normal 1.2-3.4 [facility] Comment on above: Performed By: #### M RSAST #### Testing performed at [address] [address] Lymphocytes/100 WBC (Bld) 11.0 % Low 20.0-55.0 [facility] Comment on above: Performed By: #### M RSAST #### Testing performed at [address] [address] Monocytes (Bld) [#/Vol] 0.8 10*3/uL High 0.0-0.7 [facility] Comment on above: Performed By: #### M RSAST #### Testing performed at [address] [address] Monocytes/100 WBC (Bld) 4.6 % Normal 0.0-10.0 [facility] Comment on above: Performed By: #### M RSAST #### Testing performed at [address] [address] Neutrophils/100 WBC (Bld) 84.0 % High 37.0-75.0 [facility] Comment on above: Performed By: #### M RSAST #### Testing performed at [address] [address] Erythrocyte distribution width (RBC) [Ratio] 14.6 % High 11.5-14.5 [facility] Comment on above: Performed By: #### M RSAST #### Testing performed at [address] [address] Hematocrit (Bld) [Volume fraction] 46.5 % Normal 42.0-52.0 [facility] Comment on above: Performed By: #### M RSAST #### Testing performed at [address] [address] Hemoglobin (Bld) [Mass/Vol] 15.3 g/dL Normal 14.0-18.0 [facility] Comment on above: Performed By: #### M RSAST #### Testing performed at [address] [address] MCH (RBC) [Entitic mass] 27.3 pg Normal 26.0-35.0 [facility] Comment on above: Performed By: #### M RSAST #### Testing performed at [address] [address] MCHC (RBC) [Mass/Vol] 33.0 g/dL Normal 27.0-37.0 [facility] Comment on above: Performed By: #### M RSAST #### Testing performed at [address] [address] MCV (RBC) [Entitic vol] 82.6 fL Normal 80.0-100.0 [facility] Comment on above: Performed By: #### M RSAST #### Testing performed at [address] [address] Platelet mean volume (Bld) [Entitic vol] 6.9 fL Low 7.4-11.0 [facility] Comment on above: Performed By: #### M RSAST #### Testing performed at [address] [place] [address] Platelets (Bld) [#/Vol] 358 10*3/uL Normal 130.0-400.0 [facility] Comment on above: Performed By: #### M RSAST #### Testing performed at [address] [address] RBC (Bld) [#/Vol] 5.63 10*6/uL Normal 4.0-6.1 [facility] Comment on above: Performed By: #### M RSAST #### Testing performed at [address] [address] WBC (Bld) [#/Vol] 17.2 10*3/uL High 3.6-11.0 [facility] Comment on above: Performed By: #### M RSAST #### Testing performed at [address] [address] CMP FASTINGon 01-07-2023 A:G RATIO 1.3 RATIO Normal 1.3-2.2 [facility] Comment on above: Performed By: #### M RSAST #### Testing performed at [address] [address] ALBUMIN 4.0 G/dl Normal 3.5-5.0 [facility] Comment on above: Performed By: #### M RSAST #### Testing performed at [address] [address] ALP [Catalytic activity/Vol] 117 U/L Normal 38-126 [facility] Comment on above: Performed By: #### M RSAST #### Testing performed at [address] [place] [address] ALT [Catalytic activity/Vol] 651 U/L High 17-63 [facility] Comment on above: Performed By: #### M RSAST #### Testing performed at [address] [place] [address] AST [Catalytic activity/Vol] 128 U/L High 15-41 [facility] Comment on above: Performed By: #### M RSAST #### Testing performed at [address] [address] Bilirubin [Mass/Vol] 1.4 mg/dL High 0.2-1.2 [facility] Comment on above: Performed By: #### M RSAST #### Testing performed at [address] [address] Calcium [Mass/Vol] 8.9 mg/dL Normal 8.4-10.2 [facility] Comment on above: Performed By: #### M RSAST #### Testing performed at [address] [address] Chloride [Moles/Vol] 102 mmol/L Normal 98-107 [facility] Comment on above: Performed By: #### M RSAST #### Testing performed at [address] [address] CO2 [Moles/Vol] 22 mmol/L Normal 22-30 [facility] Comment on above: Performed By: #### M RSAST #### Testing performed at [address] [address] Creatinine [Mass/Vol] 0.76 mg/dL Normal 0.66-1.25 [facility] Comment on above: Performed By: #### M RSAST #### Testing performed at [address] [address] EST. GFR, 149 ml/min/1.73sq.m [facility] Comment on above: Performed By: #### M RSAST #### Testing performed at [address] [address] EST. GFR,Non 123 ml/min/1.73sq.m [facility] Comment on above: Performed By: #### M RSAST #### Testing performed at [address] [address] GFR Information Average GFR for 30-3 9 years old = 107. Normal [facility] Comment on above: Result Comment: Vice President [employer] joel Kidney disease, GFR = <60. Kidney failure, GFR = <15. The GFR estimate is not adjusted for extreme body surface area or acute process, nor has it been validated for women or ethnic groups other than and . Performed By: #### M RSAST #### Testing performed at [address] [address] Glucose [Mass/Vol] 148 mg/dL High 70-100 [facility] Comment on above: Result Comment: NORMAL <100 mg/dL PREDIABETES 101-126 mg/dL DIABETES 126 mg/dL or higher Performed By: #### M RSAST #### Testing performed at [address] [address] Potassium [Moles/Vol] 3.7 mmol/L Normal 3.5-5.1 [facility] Comment on above: Performed By: #### M RSAST #### Testing performed at [address] [address] Protein [Mass/Vol] 7.2 g/dL Normal 6.3-8.2 [facility] Comment on above: Performed By: #### M RSAST #### Testing performed at [address] [address] Sodium [Moles/Vol] 133 mmol/L Low 136-145 [facility] Comment on above: Performed By: #### M RSAST #### Testing performed at [address] [address] Urea nitrogen [Mass/Vol] 15 mg/dL Normal 7-20 [facility] Comment on above: Performed By: #### M RSAST #### Testing performed at [address] [place] [address] ESRon 01-07-2023 ESR (Bld) [Velocity] 64 mm/h High 0-15 [facility] Comment on above: Performed By: #### C OVID #### Testing performed at [address] [place] [address] GGTon 01-07-2023 Gamma glutamyl transferase [Catalytic activity/Vol] 416 U/L High 15-73 [facility] Comment on above: Performed By: #### M RSAST #### Testing performed at [address] [address] LACTATE,BLOODon 01-07-2023 Lactate [Moles/Vol] 1.3 mmol/L Normal 0.7-2.0 [facility] Comment on above: Performed By: #### L ACTAC ####Testing performed at [address] [place] [address] LIPID PROFILEon 01-07-2023 Cholesterol [Mass/Vol] 280 mg/dL High 100-199 [facility] Comment on above: Performed By: #### C OVID #### Testing performed at [address] [address] Cholesterol in HDL [Mass/Vol] 28 mg/dL Low 40-60 [facility] Comment on above: Performed By: #### C OVID #### Testing performed at [address] [address] Cholesterol in LDL [Mass/Vol] 184 mg/dL High 0-100 [facility] Comment on above: Performed By: #### C OVID #### Testing performed at [address] [address] Cholesterol in VLDL [Mass/Vol] 68 mg/dL High 5.0-25.0 [facility] Comment on above: Performed By: #### C OVID #### Testing performed at [address] [address] Cholesterol.total/Cho lesterol in HDL [Mass ratio] 10.00 {ratio} Normal [facility] Comment on above: Result Comment: RISK TOTAL/HDL RATIO MEN WOMEN 1/2 AVERAGE 3.43 3.27 AVERAGE 4.97 4.44 2X AVERAGE 9.55 7.05 3X AVERAGE 23.99 11.04 Performed By: #### C OVID #### Testing performed at [address] [address] Triglyceride [Mass/Vol] 338 mg/dL High <150 [facility] Comment on above: Performed By: #### C OVID #### Testing performed at [address] [address] MRSA SCREENon 01-07-2023 MRSA DNA MONSE+probe Ql (Unsp spec) Not detected Normal NOT DETECTED [facility] Comment on above: Performed By: #### M RSAST #### Testing performed at [address] [address] STAPH AUREUS SCREEN Not detected Normal NOT DETECTED [facility] Comment on above: Performed By: #### M RSAST #### Testing performed at [address] [address] NOVEL CORONAVIRUSon 01-07-20 23 NARRATIVE This test was perfor med using isothermal MONSE and has been approved as Emergency Use Authorization (EUA) for the qualitative detection [id number] nucleic acid. Normal [facility] Comment on above: Performed By: #### C OVID #### Testing performed at [place] [id number] SARS-CoV-2 (COVID-19) RNA MONSE+probe Ql (Unsp spec) Not detected Normal NOT DETECTED [facility] Comment on above: Result Comment: Nega tive results do not preclude SARS-CoV-2 infection and should not be used as the sole basis for treatment or other patient management decisions. Optimum specimen types and timing for peak viral levels during infections caused by SARS-CoV-2 has not been determined. The possibility of a false negative result should especially be considered if the patient's recent exposures or clinical presentation suggest that SARS-CoV-2 infection is probable, and diagnostic tests for other causes of illness (e.g., other respiratory illness) are negative. Collection of a new specimen and re-testing may be necessary if the patient is critically ill or clinically deteriorating. Performed By: #### C OVID #### Testing performed at [address] [address] RAPID TOX SCREEN,URINEon AMPHETAMINE Negative Normal NEGATIVE [facility] Comment on above: Result Comment: <500 ng/ml CUTOFF Performed By: #### B LC #### Testing performed at [address] [address] Testing performed at [address] [address] BARBITURATES Negative Normal NEGATIVE [facility] Comment on above: Result Comment: <200 ng/ml CUTOFF Performed By: #### B LC #### Testing performed at [address] [address] Testing performed at [address] [address] BENZODIAZEPINES Negative Normal NEGATIVE [facility] Comment on above: Result Comment: <150 ng/ml CUTOFF Performed By: #### B LC #### Testing performed at [address] [place] [address] Testing performed at [address] [place] [address] BUPRENORPHINE Negative Normal NEGATIVE [facility] Comment on above: Result Comment: <10 ng/ml CUTOFF Performed By: #### B LC #### Testing performed at [address] [place] [address] Testing performed at [address] [place] [address] CANNABINOIDS Negative Normal NEGATIVE [facility] Comment on above: Result Comment: <50 ng/ml CUTOFF Performed By: #### B LC #### Testing performed at [address] [place] [address] Testing performed at [address] [place] [address] COCAINE Negative Normal NEGATIVE [facility] Comment on above: Result Comment: <150 ng/ml CUTOFF Performed By: #### B LC #### Testing performed at [address] [place] [address] Testing performed at [address] [place] [address] METHADONE Negative Normal NEGATIVE [facility] Comment on above: Result Comment: <200 ng/ml CUTOFF Performed By: #### B LC #### Testing performed at [address] [place] [address] Testing performed at [address] [place] [address] METHAMPHETAMINE Negative Normal NEGATIVE [facility] Comment on above: Result Comment: <500 ng/ml CUTOFF Performed By: #### B LC #### Testing performed at [address] [place] [address] Testing performed at [address] [place] [address] OPIATES Positive Abnormal NEGATIVE [facility] Comment on above: Result Comment: <100 ng/ml CUTOFF *Unconfirmed Screening Result* Unconfirmed screening results are to be used only for medical treatment purposes. Performed By: #### B LC #### Testing performed at [address] [place] [address] Testing performed at [address] [place] [address] OXYCODONE Positive Abnormal NEGATIVE [facility] Comment on above: Result Comment: <100 ng/ml CUTOFF *Unconfirmed Screening Result* Unconfirmed screening results are to be used only for medical treatment purposes. Performed By: #### B LC #### Testing performed at [address] [address] Testing performed at [address] [place] [address] PHENCYCLIDINE Negative Normal NEGATIVE [facility] Comment on above: Result Comment: <25 ng/ml CUTOFF Performed By: #### B LC #### Testing performed at [address] [place] [address] Testing performed at [address] [place] [address] PROPOXYPHENE Negative Normal NEGATIVE [facility] Comment on above: Result Comment: <300 ng/ml CUTOFF Performed By: #### B LC #### Testing performed at [address] [place] [address] Testing performed at [address] [place] [address] TRICYCLIC ANTIDEPRESSANTS Negative Normal NEGATIVE [facility] Comment on above: Result Comment: <300 ng/ml CUTOFF Performed By: #### B LC #### Testing performed at [address] [place] [address] Testing performed at [address] [address] TROPONIN I, HIGH SENSITIVITY on 01-07-2023 TROPONIN I, HIGH SENSITIVITY 4 pg/mL Normal 0-20 [facility] Comment on above: Result Comment: Indeterminant: >12 to 100 pg/mL female >20 to 100 pg/mL male Indicative of myocardial injury. Serial sampling is recommended, a change of greater than or equal to 20 pg/mL is indicative of acute coronary syndrome. Performed By: #### T ROHS #### Testing performed at [address] [place] [address] URINE CULTUREon 01-07-2023 Bacteria identified Cx Nom (U) SPECIMEN DESCRIPTION URINE CLEAN CATCH UA DIPSTICK LEUKOCYTE NEGATIVE * Result Note: NITRITE POSITIVE * CULTURE NO GROWTH 2 DAYS * Result Note: Testing performed at [place] [address] * REPORT STATUS 01/10/2023 * Result Note: FINAL * Normal [facility] Comment on above: Performed By: #### A URNC ####Testing performed at [address], [place] [address]Joboext performed at [place] [id number] [place] [address] URINE MACROSCOPICon 01-07-20 23 Bilirubin Ql (U) MODERATE Abnormal NEGATIVE [facility] Comment on above: Performed By: #### B LC #### Testing performed at [address] [place] [address] Testing performed at [address] [place] [address] Clarity (U) CLEAR Normal CLEAR [facility] Comment on above: Performed By: #### B LC #### Testing performed at [address] [place] [address] Testing performed at [address] [place] [address] Color (U) YELLOW Normal YELLOW [facility] Comment on above: Performed By: #### B LC #### Testing performed at [address] [place] [address] Testing performed at [address] [place] [address] Glucose Ql (U) Negative Normal NEGATIVE [facility] Comment on above: Performed By: #### B LC #### Testing performed at [address] [place] [address] Testing performed at [address] [place] [address] pH (U) 6.0 [pH] Normal 5.0-7.0 [facility] Comment on above: Performed By: #### B LC #### Testing performed at [address] [place] [address] Testing performed at [address] [place] [address] Protein (U) [Mass/Vol] 100 mg/dL Abnormal NEGATIVE [facility] Comment on above: Performed By: #### B LC #### Testing performed at [address] [place] [address] Testing performed at [address] [place] [address] URINE HEMOGLOBIN Negative Normal NEGATIVE [facility] Comment on above: Performed By: #### B LC #### Testing performed at [address] [place] [address] Testing performed at [address] [place] [address] URINE KETONE Negative Normal NEGATIVE [facility] Comment on above: Performed By: #### B LC #### Testing performed at [address] [place] [address] Testing performed at [address] [place] [address] URINE LEUKOTEST Negative Normal NEGATIVE [facility] Comment on above: Performed By: #### B LC #### Testing performed at [address] [place] [address] Testing performed at [address] [place] [address] URINE NITRATES Positive Abnormal NEGATIVE [facility] Comment on above: Performed By: #### B LC #### Testing performed at [address] [place] [address] Testing performed at [address] [place] [address] URINE SPEC GRAVITY >1.030 High 1.010-1.025 [facility] Comment on above: Performed By: #### B LC #### Testing performed at [address] [place] [address] Testing performed at [address] [place] [address] Urobilinogen Qn (U) 0.2 {Riley'U}/dL Normal 0.2-1.0 [facility] Comment on above: Performed By: #### B LC #### Testing performed at [address] [place] [address] Testing performed at [address] [place] [address] URINE MICROSCOPICon 01-07-20 23 Bacteria LM.HPF (Urine sed) [#/Area] Negative Normal NEGATIVE [facility] Comment on above: Performed By: #### B LC #### Testing performed at [address] [place] [address] Testing performed at [address] [place] [address] CASTS NONE Normal NONE [facility] Comment on above: Performed By: #### B LC #### Testing performed at [address] [place] [address] Testing performed at [address] [place] [address] CRYSTAL NONE Normal NONE [facility] Comment on above: Performed By: #### B LC #### Testing performed at [address] [place] [address] Testing performed at [address] [place] [address] Epithelial cells LM Ql (Urine sed) 1 TO 5 Normal [facility] Comment on above: Performed By: #### B LC #### Testing performed at [address] [place] [address] Testing performed at [address] [place] [address] Mucus Ql (Urine sed) Negative Normal NEGATIVE [facility] Comment on above: Performed By: #### B LC #### Testing performed at [address] [place] [address] Testing performed at [address] [place] [address] URINE COMMENT REFLEX CULTURE PER ESTABLISHED CRITERIA. Normal [facility] Comment on above: Performed By: #### B LC #### Testing performed at [address] [place] [address] Testing performed at [address] [place] [address] URINE RBC'S Negative Normal NEGATIVE [facility] Comment on above: Performed By: #### B LC #### Testing performed at [address] [place] [address] Testing performed at [address] [place] [address] URINE WBC'S Negative Normal NEGATIVE [facility] Comment on above: Performed By: #### B LC #### Testing performed at [address] [place] [address] Testing performed at [address] [place] [address] US ABDOMEN RUQ/LIVER/GBon US ABDOMEN RUQ/LIVER/GB EXAM: US ABDOMEN RUQ/LIVER/GB HISTORY: acute pancreatitis COMPARISON: None. TECHNIQUE: Multiple sonographic images of the right upper quadrant of the abdomen were obtained, supplemented with Doppler. FINDINGS: The study is severely limited and essentially nondiagnostic due to overlying bowel gas and the patient's body habitus. The liver and pancreas are poorly visualized without evidence of a focal abnormality within. Diffuse fatty infiltration is seen in the liver. The gallbladder and the bile ducts are not visualized. The right kidney is not visualized. The abdominal aorta and inferior vena cava are not visualized. IMPRESSION: Severely limited study. Fatty infiltration is noted in the visualized portions of the liver. The gallbladder is not visualized. The pancreas is very poorly visualized without a focal abnormality within. No free fluid is present. Normal [facility] Basic Metabolic Panlon 09-05 Anion gap [Moles/Vol] 14 mmol/L Normal 9-18 [facility] Comment on above: Performed By: #### B MP, LIPB, LDLDCT #### [facility] [address] [address] Calcium [Mass/Vol] 9.8 mg/dL Normal 8.5-10.[address] [facility] Comment on above: Performed By: #### B MP, LIPB, LDLDCT #### [place] [address] [place], [place] [address] Chloride [Moles/Vol] 100 mmol/L Normal 97-105 [facility] Comment on above: Performed By: #### B MP, LIPB, LDLDCT #### [place] [address] [place], [place] [address] CO2 [Moles/Vol] 24 mmol/L Normal 22-30 [facility] Comment on above: Performed By: #### B MP, LIPB, LDLDCT #### [facility] [address] [place], [place] [address] Creatinine [Mass/Vol] 0.69 mg/dL Low 0.73-1.22 [facility] Comment on above: Performed By: #### B MP, LIPB, LDLDCT #### [facility] [address] [place], [place] [address] eGFR- Amer. >[address] [facility] Comment on above: Performed By: #### B MP, LIPB, LDLDCT #### [facility] [employer] [address] [place], [place] [id number] GFR/1.73 sq M predicted among non-blacks MDRD (S/P/Bld) [Vol rate/Area] mL/min/{1.73_m2} Normal [facility] Comment on above: Result Comment: eGFR (Estimated GFR) Units of measure: mL/min/1.73 meters squared eGFR is derived from the reexpressed MDRD Study equation using the following parameters: serum creatinine, age, gender and race. The creatinine assay has been calibrated to be traceable to IDMS. An eGFR <60 mL/min/1.73m2 for >3 months is consistent with chronic kidney disease. Refer to KDOQI guidelines for clinical interpretation. In patients with unstable renal function, e.g. those with acute kidney injury, the eGFR may not accurately reflect actual GFR. Performed By: #### B CATHY ECHEVERRIA LDLDCT #### [facility] [employer] [address] [place], [place] [address] Glucose [Mass/Vol] 93 mg/dL Normal 74-[address] [facility] Comment on above: Result Comment: The [place] Diabetes [employer] (ADA) provides guidance for cutoff values for fasting glucose and random glucose. The ADA defines fasting as no caloric intake for at least 8 hours. Fasting plasma glucose results between 100 to 125 mg/dL indicate increased risk for diabetes (prediabetes). Fasting plasma glucose results greater than or equal to 126 mg/dL meet the criteria for diagnosis of diabetes. In the absence of unequivocal hyperglycemia, results should be confirmed by repeat testing. In a patient with classic symptoms of hyperglycemia or hyperglycemic crisis, random plasma glucose results greater than or equal to 200 mg/dL meet the criteria for diagnosis of diabetes. Reference: Standards of Medical Care in Diabetes 2016, [place] [employer]. Diabetes Care. 2016.39(Suppl 1). Performed By: #### B CATHY ECHEVERRIA LDLDCT #### [facility] [employer] [address] [place], [place] [address] Potassium [Moles/Vol] 4.3 mmol/L Normal 3.7-5.1 [facility] Comment on above: Performed By: #### B DESEAN ECHEVERRIAB, LDLDCT #### [facility] [address] [place], [place] [id number] Sodium [Moles/Vol] 138 mmol/L Normal 136-[address] [facility] Comment on above: Performed By: #### B MP, LIPB, LDLDCT #### [facility] [employer] [address] [place], [place] [address] Urea nitrogen [Mass/Vol] 13 mg/dL Normal 9-24 [facility] Comment on above: Performed By: #### B MP, LIPB, LDLDCT #### [facility] [employer] [address] [place], [place] [address] CNOVon 09-05-2019 CNOV Office Visit (INTMWS ) DELONTE BALTAZAR ([id number]) 1985 M Date Time Provider Department 09/05/19 9:00 AM CECI GATES (LISA) INTMWS During your visit today, we recorded the following information about you: Temperature Pulse Respiration Blood pressure 97.8 degrees 85/minute 16/minute 138/104 Weight Height 147 kg 1.86 m Ceci Gates APRN.CNP 09/05/2019 9:32 AM Signed CC: Patient presents with: Physical HPI Delonte Baltazar is a 34 year old male who presents today for above. Also needs biometric form completed. Denies any concerns or issues today. BP is elevated today, no history of hypertension. Patient states he has been eating healthier and losing weight. Hoping his blood pressure will improve with this. Does not check BP at home. REVIEW OF SYSTEMS General: more energy now that he is working out. no fevers, no chills, no night sweats, no recurrent infections, no change in appetite HEENT: no frequent or significant headaches, no changes in hearing, no visual changes Respiratory: no cough, no wheezing, no shortness of breath Cardiovascular: no chest pain, no chest pressure, no palpitations and no swelling GI: Negative for abdominal discomfort, blood in stools or black stools, change in bowel habit, heart burn, nausea, vomiting PAST MEDICAL HISTORY Diagnosis Date - Elevated blood pressure reading 09/06/2018 - Hyperlipidemia, mixed 09/08/2018 - Obesity, Class II, BMI 35-39.9 09/06/2018 PAST SURGICAL HISTORY Procedure Laterality Date - NONE ALLERGIES Seasonal Allergies MEDICATIONS No prescriptions on file. FAMILY HISTORY Problem Relation Age of Onset - other (cirrhosis) Father alcoholic cirrhosis - Cancer Mother rectal cancer - COPD Paternal Grandfather Social History Tobacco Use - Smoking status: Former Smoker Packs/day: 0.50 Years: 12.00 Pack years: 6.00 Last attempt to quit: 08/04/2018 Years since quittin.0 - Smokeless tobacco: Never Used Substance Use Topics - Alcohol use: Yes Alcohol/week: 15.0 standard drinks Types: 6 Cans of Beer (12oz) per week Comment: 6 per week or less - Drug use: No PHYSICAL EXAM BP 138/104 Pulse 85 Temp 36.6 ?C (97.8 ?F) (Temporal) Resp 16 Ht 186 cm (6' 1.23) Wt (!) 147 kg (324 lb) SpO2 97% BMI 42.48 kg/m? General Appearance: well appearing, in no acute distress, alert, obese Pysch: mood and affect broad and appropriate Eyes: conjunctiva pink and moist, no icterus, sclera white, non-injected Neck: Thyroid normal size and symmetric without palpable nodules, Neck supple, No adenopathy Lymph nodes: No supraclavicular lymphadenopathy Lungs: lungs clear to auscultation. No wheezing, rhonchi, rales Heart: RRR without murmur, gallop, or rubs. No ectopy Ext: no edema in LE bilaterally, good distal pulses DTAP,TDAP,TD(1 - Tdap) due on 2005 INFLUENZA(1) due on 07/31/2019 ASSESSMENT/PLAN: 1. Encounter for general adult medical examination w/o abnormal findings - ICD9: V70.9, ICD10: Z00.00 (primary diagnosis) - Discussed health maintenance including regular aerobic exercise, healthy diet, age appropriate screenings and periodic exams. - Discussed need and benefit for weight loss. BMI 42.48 kg/(m2) - Check BMP and fasting lipid panel - Vaccination(s) recommended today: Influenza - Follow up for annual exam in one year. - LIPID PANEL BASIC - BASIC METABOLIC PNL 2. Elevated blood pressure reading - ICD9: 796.2, ICD10: R03.0 Previous BP readings the past couple years have been elevated. Patient would like to continue to work on diet and losing weight before considering treatment - Encouraged dietary sodium restriction/DASH diet - Recommended regular aerobic exercise. - Recommend home blood pressure monitoring, to bring results in on next visit - Recheck in 1 month, sooner if needed. - Reviewed risks of HTN and principles of treatment - Goal of BP <130/80 3. Obesity, Class II, BMI 35-39.9 - ICD9: 278.00, ICD10: E66.9 Weight increasing, patient has been working on losing weight 4. Need for vaccination - ICD9: V05.9, ICD10: Z23 - INFLUENZA VACCINE QUADRIVALENT AGE 3 YRS PLUS + IM Prescription instructions reviewed with patient as applicable. Potential red flag symptoms discussed with the patient. Reviewed appropriate action plan to take if red flag symptoms occur. Patient agreeable to treatment plan. KORY Grant APRN.CNP 09/05/2019 9:00 AM Signed Check blood pressures at home, at least once a week. Call office if you are getting consistent readings of 140/90 or greater (top or bottom number) Referring Provider: SELF [200] Allergies As of Date: 09/05/2019 Noted Allergy Reaction SEASONAL ALLERGIES 02/28/2013 14 - Other: See Comments Comments: Nasal congestion Date Reviewed: 09/05/2019 Reviewed by: Florina Cohn Fixed Income Director - Fully Assessed Reason for Visit: Physical [83] Imm/Inj [58] Cmt: Flu Vaccine Reason For Visit History Recorded Primary Visit Diagnosis:Encounter for general adult medical examination w/o abnormal findings [Z00.00] Other Visit Diagnoses:Elevated blood pressure reading [R03.0] Obesity, Class II, BMI 35-39.9 [E66.9] Need for vaccination [Z23] Order(s):LIPID PANEL BASIC [SQLIPB] Order #: [id number] FUTURE BASIC METABOLIC PNL [SQBMP] Order #: [id number] FUTURE INFLUENZA VACCINE QUADRIVALENT AGE 3 YRS PLUS + IM [[id number]] Order #: [id number] Problem List As Of Date 09/05/2019 Noted Resolved Current smoker [F17.200] INVALID FOR*09/06/2018 Obesity, Class II, BMI 35-39.9 [E66.9] INVALID FOR* Elevated blood pressure reading [R03.0] INVALID FOR* Hyperlipidemia, mixed [E78.2] INVALID FOR* Other instructions from your clinician: Check blood pressures at home, at least once a week. Call office if you are getting consistent readings of 140/90 or greater (top or bottom number) Disposition: Return in about 1 month (around 10/06/2019) for blood pressure. Follow-up and Disposition History Recorded Encounter Status:Closed by CECI GATES CNP on 09/05/19 Normal [facility] LDL-Chol, Directon 9 LDL-Chol, Direct 114 mg/dL High <100 [facility] Comment on above: Result Comment: <100 mg/dL, Optimal 100-129 mg/dL, Near optimal/above optimal 130-159 mg/dL, Borderline high 160-189 mg/dL, High >189 mg/dL, Very high Secondary prevention optimal LDL Cholesterol levels are recommended to be < 70 mg/dL Performed By: #### B MP, LIPB, LDLDCT #### [facility] [employer] [address] [place], [place] [id number] VLDL Cholesterol 73 mg/dL High <30 [facility] Comment on above: Performed By: #### B MP, LIPB, LDLDCT #### [facility] [employer] [address] [place], [place] [address] Lipid Panel, Basicon 019 Cholesterol [Mass/Vol] 215 mg/dL High <200 [facility] Comment on above: Result Comment: <200 mg/dL, Desirable 200-239 mg/dL, Borderline high >239 mg/dL, High Performed By: #### B MP, LIPB, LDLDCT #### [facility] [employer] [address] [place], [place] [address] Cholesterol in HDL [Mass/Vol] 28 mg/dL Low >39 [facility] Comment on above: Result Comment: 40-5 9 mg/dL, Acceptable >59 mg/dL, High: Negative risk factor for coronary heart disease <40 mg/dL, Low: Positive risk factor for coronary heart disease Performed By: #### B MP, LIPB, LDLDCT #### [facility] [employer] [address] [place] [address] Cholesterol in LDL [Mass/Vol] Unable to calculate due to increased Triglycerides. See LDL-Chol, Direct. Normal <100 [facility] Comment on above: Performed By: #### B MP, LIPB, LDLDCT #### [facility] [employer] [address] [place] [address] Fasting Time 12 hrs Normal [facility] Comment on above: Performed By: #### B MP, LIPB, LDLDCT #### [facility] [employer] [address] [place] [address] LDL:HDL Ratio Unable to calculate due to elevated Triglycerides. Normal <2.54 [facility] Comment on above: Result Comment: Refe rence: 1. National Cholesterol Education Program ATP III Guideline At-A-Glance Quick Desk Reference: National Heart, Lung, and Blood [place]. National Institutes of Health. 2001: NIH Publication No. 01-3305. 2. An International Atherosclerosis Society position paper: global recommendations for the management of dyslipidemia: executive summary, Atherosclerosis. 2014: 232(2):410-413. Performed By: #### B MP, LIPB, LDLDCT #### [facility] [employer] [address] [place] [address] Non HDL Cholesterol 187 mg/dL High <130 [facility] Comment on above: Result Comment: <130 mg/dL, Optimal 130-159 mg/dL, Near optimal/above optimal 160-189 mg/dL, Borderline high 190-219 mg/dL, High >219 mg/dL, Very high Secondary prevention optimal non HDL Cholesterol levels are recommended to be < 100 mg/dL Performed By: #### B MP, LIPB, LDLDCT #### [facility] [employer] [address] [place], [place] [id number] TC:HDL Ratio 7.68 High <5.10 [facility] Comment on above: Performed By: #### B MP, LIPB, LDLDCT #### [facility] [address] [place], [place] [id number] Triglyceride [Mass/Vol] 526 mg/dL High <150 [facility] Comment on above: Result Comment: <150 mg/dL, Normal 150-199 mg/dL, Borderline high 200-499 mg/dL, High >499 mg/dL, Very high Performed By: #### B MP, LIPB, LDLDCT #### [facility] [address] [place] [id number] VLDL Cholesterol Unable to calculate due to increased Triglycerides. See LDL-Chol, Direct. Normal <30 [facility] Comment on above: Performed By: #### B MP, LIPB, LDLDCT #### [facility] [address] [place] [id number] PROGRESSon 09-05-2019 PROGRESS HNO ID: [id number] Author: Ceci (Lisa) Older Service: ? Author Type: Nurse Practitioner Type: Progress Notes Filed: 09/05/2019 9:32 AM Note Text: CC: Patient presents with: Physical HPI Delonte Baltazar is a 34 year old male who presents today for above. Also needs biometric form completed. Denies any concerns or issues today. BP is elevated today, no history of hypertension. Patient states he has been eating healthier and losing weight. Hoping his blood pressure will improve with this. Does not check BP at home. REVIEW OF SYSTEMS General: more energy now that he is working out. no fevers, no chills, no night sweats, no recurrent infections, no change in appetite HEENT: no frequent or significant headaches, no changes in hearing, no visual changes Respiratory: no cough, no wheezing, no shortness of breath Cardiovascular: no chest pain, no chest pressure, no palpitations and no swelling GI: Negative for abdominal discomfort, blood in stools or black stools, change in bowel habit, heart burn, nausea, vomiting PAST MEDICAL HISTORY Diagnosis Date - Elevated blood pressure reading 09/06/2018 - Hyperlipidemia, mixed 09/08/2018 - Obesity, Class II, BMI 35-39.9 09/06/2018 PAST SURGICAL HISTORY Procedure Laterality Date - NONE ALLERGIES Seasonal Allergies MEDICATIONS No prescriptions on file. FAMILY HISTORY Problem Relation Age of Onset - other (cirrhosis) Father alcoholic cirrhosis - Cancer Mother rectal cancer - COPD Paternal Grandfather Social History Tobacco Use - Smoking status: Former Smoker Packs/day: 0.50 Years: 12.00 Pack years: 6.00 Last attempt to quit: 08/04/2018 Years since quittin.0 - Smokeless tobacco: Never Used Substance Use Topics - Alcohol use: Yes Alcohol/week: 15.0 standard drinks Types: 6 Cans of Beer (12oz) per week Comment: 6 per week or less - Drug use: No PHYSICAL EXAM BP 138/104 Pulse 85 Temp 36.6 ?C (97.8 ?F) (Temporal) Resp 16 Ht 186 cm (6' 1.23) Wt (!) 147 kg (324 lb) SpO2 97% BMI 42.48 kg/m? General Appearance: well appearing, in no acute distress, alert, obese Pysch: mood and affect broad and appropriate Eyes: conjunctiva pink and moist, no icterus, sclera white, non-injected Neck: Thyroid normal size and symmetric without palpable nodules, Neck supple, No adenopathy Lymph nodes: No supraclavicular lymphadenopathy Lungs: lungs clear to auscultation. No wheezing, rhonchi, rales Heart: RRR without murmur, gallop, or rubs. No ectopy Ext: no edema in LE bilaterally, good distal pulses DTAP,TDAP,TD(1 - Tdap) due on 2005 INFLUENZA(1) due on 07/31/2019 ASSESSMENT/PLAN: 1. Encounter for general adult medical examination w/o abnormal findings - ICD9: V70.9, ICD10: Z00.00 (primary diagnosis) - Discussed health maintenance including regular aerobic exercise, healthy diet, age appropriate screenings and periodic exams. - Discussed need and benefit for weight loss. BMI 42.48 kg/(m2) - Check BMP and fasting lipid panel - Vaccination(s) recommended today: Influenza - Follow up for annual exam in one year. - LIPID PANEL BASIC - BASIC METABOLIC PNL 2. Elevated blood pressure reading - ICD9: 796.2, ICD10: R03.0 Previous BP readings the past couple years have been elevated. Patient would like to continue to work on diet and losing weight before considering treatment - Encouraged dietary sodium restriction/DASH diet - Recommended regular aerobic exercise. - Recommend home blood pressure monitoring, to bring results in on next visit - Recheck in 1 month, sooner if needed. - Reviewed risks of HTN and principles of treatment - Goal of BP <130/80 3. Obesity, Class II, BMI 35-39.9 - ICD9: 278.00, ICD10: E66.9 Weight increasing, patient has been working on losing weight 4. Need for vaccination - ICD9: V05.9, ICD10: Z23 - INFLUENZA VACCINE QUADRIVALENT AGE 3 YRS PLUS + IM Prescription instructions reviewed with patient as applicable. Potential red flag symptoms discussed with the patient. Reviewed appropriate action plan to take if red flag symptoms occur. Patient agreeable to treatment plan. Ceci Gates, SWEEP PRESS OPERATOR.PRINTING TABLE WORKER Normal [facility] Basic Metabolic Panlon 09-06 Anion gap [Moles/Vol] 14 mmol/L Normal 9-18 [facility] Comment on above: Performed By: #### B MP, LIPB, LDLDCT #### [facility] [employer] [address] [place], [place] [address] Calcium [Mass/Vol] 9.7 mg/dL Normal 8.5-10.[address] [facility] Comment on above: Performed By: #### B MP, LIPB, LDLDCT #### [facility] [employer] [address] [place], [place] [address] Chloride [Moles/Vol] 103 mmol/L Normal 97-105 [facility] [place] Comment on above: Performed By: #### B MP, LIPB, LDLDCT #### [facility] [employer] [address], [place] [address] CO2 [Moles/Vol] 24 mmol/L Normal 22-30 [facility] Comment on above: Performed By: #### B MP, LIPB, LDLDCT #### [facility] [address] [place], [place] [address] Creatinine [Mass/Vol] 0.75 mg/dL Normal 0.73-1.22 [facility] Comment on above: Performed By: #### B DESEAN ECHEVERRIAB, LDLDCT #### [facility] [address] [place], [place] [address] eGFR- Amer. >[address] [facility] Comment on above: Performed By: #### B JACKI LIPB, LDLDCT #### [facility] [address] [place], [place] [address] GFR/1.73 sq M predicted among non-blacks MDRD (S/P/Bld) [Vol rate/Area] mL/min/{1.73_m2} Normal [facility] Comment on above: Result Comment: eGFR (Estimated GFR) Units of measure: mL/min/1.73 meters squared eGFR is derived from the reexpressed MDRD Study equation using the following parameters: serum creatinine, age, gender and race. The creatinine assay has been calibrated to be traceable to IDMS. An eGFR <60 mL/min/1.73m2 for >3 months is consistent with chronic kidney disease. Refer to KDOQI guidelines for clinical interpretation. In patients with unstable renal function, e.g. those with acute kidney injury, the eGFR may not accurately reflect actual GFR. Performed By: #### B CATHY ECHEVERRIA, LDLDCT #### [facility] [address] [place] [id number] Glucose [Mass/Vol] 89 mg/dL Normal 74-[address] [facility] Comment on above: Result Comment: The [place] Diabetes Association (ADA) provides guidance for cutoff values for fasting glucose and random glucose. The ADA defines fasting as no caloric intake for at least 8 hours. Fasting plasma glucose results between 100 to 125 mg/dL indicate increased risk for diabetes (prediabetes). Fasting plasma glucose results greater than or equal to 126 mg/dL meet the criteria for diagnosis of diabetes. In the absence of unequivocal hyperglycemia, results should be confirmed by repeat testing. In a patient with classic symptoms of hyperglycemia or hyperglycemic crisis, random plasma glucose results greater than or equal to 200 mg/dL meet the criteria for diagnosis of diabetes. Reference: Standards of Medical Care in Diabetes 2016, [place] [employer]. Diabetes Care. 2016.39(Suppl 1). Performed By: #### B MP, LIPB, LDLDCT #### [facility] [address] [place] [address] Potassium [Moles/Vol] 4.4 mmol/L Normal 3.7-5.1 [facility] Comment on above: Performed By: #### B MP, LIPB, LDLDCT #### [place] [address] [place] [address] Sodium [Moles/Vol] 141 mmol/L Normal 136-[address] [facility] Comment on above: Performed By: #### B MP, LIPB, LDLDCT #### [place] [address] [place] [address] Urea nitrogen [Mass/Vol] 14 mg/dL Normal 9-24 [facility] Comment on above: Performed By: #### B MP, LIPB, LDLDCT #### [place] [address] [place] [address] LDL-Chol, Directon 8 LDL-Chol, Direct 112 mg/dL High <100 [facility] Comment on above: Result Comment: <100 mg/dL, Optimal 100-129 mg/dL, Near optimal/above optimal 130-159 mg/dL, Borderline high 160-189 mg/dL, High >189 mg/dL, Very high Secondary prevention optimal LDL Cholesterol levels are recommended to be < 70 mg/dL Performed By: #### B MP, LIPB, LDLDCT #### [facility] [address] [place] [place] [address] VLDL Cholesterol 91 mg/dL High <30 [facility] Comment on above: Performed By: #### B MP, LIPB, LDLDCT #### [facility] [address] [place] [address] Lipid Panel, Basicon 018 Cholesterol [Mass/Vol] 232 mg/dL High <200 [facility] Comment on above: Result Comment: <200 mg/dL, Desirable 200-239 mg/dL, Borderline high >239 mg/dL, High Performed By: #### B MP, LIPB, LDLDCT #### [facility] [address] [place] [address] Cholesterol in HDL [Mass/Vol] 29 mg/dL Low >39 [facility] Comment on above: Result Comment: 40-5 9 mg/dL, Acceptable >59 mg/dL, High: Negative risk factor for coronary heart disease <40 mg/dL, Low: Positive risk factor for coronary heart disease Performed By: #### B MP, LIPB, LDLDCT #### [place] [address] [place] [address] Cholesterol in LDL [Mass/Vol] Unable to calculate due to increased Triglycerides. See LDL-Chol, Direct. Normal <100 [facility] Comment on above: Performed By: #### B MP, LIPB, LDLDCT #### [facility] [address] [place] [address] Fasting Time 13 hrs Normal [facility] Comment on above: Performed By: #### B MP, LIPB, LDLDCT #### [place] [address] [place] [address] LDL:HDL Ratio Unable to calculate due to elevated Triglycerides. Normal <2.54 [facility] Comment on above: Result Comment: Refe rence: 1. National Cholesterol Education Program ATP III Guideline At-A-Glance Quick Desk Reference: National Heart, Lung, and Blood [place]. National Institutes of Health. 2001: NIH Publication No. 01-3305. 2. An International Atherosclerosis Society position paper: global recommendations for the management of dyslipidemia: executive summary, Atherosclerosis. 2014: 232(2):410-413. Performed By: #### B MP, LIPB, LDLDCT #### [facility] [employer] [address] [place] [address] Non HDL Cholesterol 203 mg/dL High <130 [facility] Comment on above: Result Comment: <130 mg/dL, Optimal 130-159 mg/dL, Near optimal/above optimal 160-189 mg/dL, Borderline high 190-219 mg/dL, High >219 mg/dL, Very high Secondary prevention optimal non HDL Cholesterol levels are recommended to be < 100 mg/dL Performed By: #### B MP, LIPB, LDLDCT #### [place] [address] TC:HDL Ratio 8.00 High <5.10 [facility] Comment on above: Performed By: #### B MP, LIPB, LDLDCT #### [place] [address] [place] [address] Triglyceride [Mass/Vol] 537 mg/dL High <150 [facility] Comment on above: Result Comment: <150 mg/dL, Normal 150-199 mg/dL, Borderline high 200-499 mg/dL, High >499 mg/dL, Very high Performed By: #### B MP, LIPB, LDLDCT #### [place] [address] [place] [address] VLDL Cholesterol Unable to calculate due to increased Triglycerides. See LDL-Chol, Direct. Normal <30 [facility] Comment on above: Performed By: #### B MP, LIPB, LDLDCT #### [place] [address] Vital Signs Date Time Vital Sign Value Performing Clinician Facility 2025 14:43-0400 Body height 188 cm Harish Florez DO Work Phone: [facility] 2025 14:43-0400 Body mass index (BMI) [Ratio] 45.32 kg/m2 Harish Florez DO Work Phone: [facility] 2025 14:43-0400 Body weight 160.12 kg Harish Thomae DO Work Phone: [facility] 2025 14:43-0400 Diastolic blood pressure 94 mm[Hg] Harish Thomae DO Work Phone: [facility] 2025 14:43-0400 Heart rate 99 /min Harish Thomae DO Work Phone: [facility] 2025 14:43-0400 Respiratory rate 16 /min Harish Thomae DO Work Phone: [facility] 2025 14:43-0400 Systolic blood pressure 162 mm[Hg] Harish Thomae DO Work Phone: [facility] 05-17-2025 21:08-0400 Body temperature 98.7 [degF] HALLE YEATER Work Phone: [facility] 05-17-2025 21:08-0400 Diastolic blood pressure 104 mm[Hg] HALLE YEATER Work Phone: [facility] 05-17-2025 21:08-0400 Heart rate 68 /min HALLE YEATER Work Phone: [facility] 05-17-2025 21:08-0400 Respiratory rate 17 /min HALLE YEATER Work Phone: [facility] 05-17-2025 21:08-0400 SaO2% (BldA) [Mass fraction] 96 % HALLE YEATER Work Phone: [facility] 05-17-2025 21:08-0400 Systolic blood pressure 142 mm[Hg] HALLE YEATER Work Phone: [facility] 05-17-2025 14:58-0400 Body height 187.96 cm HALLE YEATER Work Phone: [facility] 05-17-2025 14:58-0400 Body mass index (BMI) [Ratio] 45.8 kg/m2 HALLE YEATER Work Phone: [facility] 05-17-2025 14:58-0400 Body weight 161.7 kg HALLE RODRIGUEZ Work Phone: [facility] 12-26-2024 08:27-0500 Body height 188 cm Halle Rodriguez MD Work Phone: 1(221)[phone] [place] [address] 12-26-2024 08:27-0500 Body mass index (BMI) [Ratio] 44.71 kg/m2 Halle Rodriguez MD Work Phone: 6(942)[phone] [place] [address] 12-26-2024 08:27-0500 Body weight 157.94 kg Halle Rodriguez MD Work Phone: 2(971)918-623021 [place] [address] 12-26-2024 08:27-0500 Diastolic blood pressure 82 mm[Hg] Halle Rodriguez MD Work Phone: 6(813)[phone] [address] 12-26-2024 08:27-0500 Heart rate 86 /min Halle Rodriguez MD Work Phone: 9(242)[phone] [address] 12-26-2024 08:27-0500 SaO2% (BldA) [Mass fraction] 99 % Halle Rodriguez MD Work Phone: 5(393)683-581921 [place] [address] 12-26-2024 08:27-0500 Systolic blood pressure 138 mm[Hg] Halle Rodriguez MD Work Phone: 1(643)127-910421 [place] [address] 09-22-2024 08:14-0400 Body height 188 cm Halle Rodriguez MD Work Phone: 7(556)007-789521 [place] [address] 09-22-2024 08:14-0400 Body mass index (BMI) [Ratio] 45.76 kg/m2 Halle Rodriguez MD Work Phone: 5(587)554-277921 [place] [address] 09-22-2024 08:14-0400 Body weight 161.66 kg Halle Rodriguez MD Work Phone: 2(273)[phone] [place] [address] 09-22-2024 08:14-0400 Diastolic blood pressure 98 mm[Hg] Halle Rodriguez MD Work Phone: 5(900)859-803521 [place] [address] 09-22-2024 08:14-0400 Heart rate 89 /min Halle Rodriguez MD Work Phone: [facility] 09-22-2024 08:14-0400 SaO2% (BldA) [Mass fraction] 99 % Halle Rodriguez MD Work Phone: [facility] 09-22-2024 08:14-0400 Systolic blood pressure 150 mm[Hg] Halle Rodriguez MD Work Phone: [facility] 08-15-2024 15:57-0400 Body height 188 cm Halle Rodriguez MD Work Phone: [facility] 08-15-2024 15:57-0400 Body mass index (BMI) [Ratio] 45.96 kg/m2 Halle Rodriguez MD Work Phone: [facility] 08-15-2024 15:57-0400 Body weight 162.39 kg Halle Rodriguez MD Work Phone: [facility] 08-15-2024 15:57-0400 Diastolic blood pressure 90 mm[Hg] Halle Rodriguez MD Work Phone: [facility] 08-15-2024 15:57-0400 Heart rate 79 /min Halle Rodriguez MD Work Phone: [facility] 08-15-2024 15:57-0400 SaO2% (BldA) [Mass fraction] 97 % Halle Rodriguez MD Work Phone: [facility] 08-15-2024 15:57-0400 Systolic blood pressure 132 mm[Hg] Halle Rodriguez MD Work Phone: [facility] 07-26-2024 11:36-0400 Body height 188 cm Kaur Gauthier MD Work Phone: [facility] 07-26-2024 11:36-0400 Body mass index (BMI) [Ratio] 46.86 kg/m2 Kaur Gauthier MD Work Phone: [facility] 07-26-2024 11:36-0400 Body weight 165.56 kg Kaur Gauthier MD Work Phone: [facility] 07-26-2024 11:36-0400 Diastolic blood pressure 90 mm[Hg] Kaur Gauthier MD Work Phone: [facility] 07-26-2024 11:36-0400 Heart rate 88 /min Kaur Gauthier MD Work Phone: [facility] 07-26-2024 11:36-0400 Systolic blood pressure 138 mm[Hg] Kaur Gauthier MD Work Phone: [facility] 04-12-2024 11:13-0400 Body height 188 cm Halle Rodriguez MD Work Phone: [facility] 04-12-2024 11:13-0400 Body mass index (BMI) [Ratio] 46.08 kg/m2 Halle Rodriguez MD Work Phone: [facility] 04-12-2024 11:13-0400 Body weight 162.8 kg Halle Rodriguez MD Work Phone: [facility] 04-12-2024 11:13-0400 Diastolic blood pressure 90 mm[Hg] Halle Rodriguez MD Work Phone: [facility] 04-12-2024 11:13-0400 Heart rate 101 /min Halle Rodriguez MD Work Phone: [facility] 04-12-2024 11:13-0400 SaO2% (BldA) [Mass fraction] 97 % Halle Rodriguez MD Work Phone: [facility] 04-12-2024 11:13-0400 Systolic blood pressure 140 mm[Hg] Halle Rodriguez MD Work Phone: [facility] 03-18-2024 20:00-0400 Diastolic blood pressure 78 mm[Hg] Morris Montanez DO Work Phone: [facility] 03-18-2024 20:00-0400 Heart rate 90 /min Morris Montanez DO Work Phone: [facility] 03-18-2024 20:00-0400 Respiratory rate 16 /min Morris Montanez DO Work Phone: [facility] 03-18-2024 20:00-0400 SaO2% (BldA) [Mass fraction] 96 % Morris Montanez DO Work Phone: [facility] 03-18-2024 20:00-0400 Systolic blood pressure 133 mm[Hg] Morris Montanez DO Work Phone: [facility] 03-18-2024 17:27-0400 Body height 188 cm Morris Montanez DO Work Phone: [facility] 03-18-2024 17:27-0400 Body mass index (BMI) [Ratio] 44.81 kg/m2 Morris Montanez DO Work Phone: [facility] 03-18-2024 17:27-0400 Body temperature 97.9 [degF] Morris Montanez DO Work Phone: [facility] 03-18-2024 17:27-0400 Body weight 158.31 kg Morris Montanez DO Work Phone: [facility] 02-29-2024 10:43-0400 Diastolic blood pressure 108 mm[Hg] Morris Alma DO Work Phone: [facility] Comment on above: Per Dr. Montanez Pt BP is OK at this [facility]. 02-29-2024 10:43-0400 Heart rate 99 /min Morris Montanez DO Work Phone: [facility] 02-29-2024 10:43-0400 Respiratory rate 19 /min Morris Montanez DO Work Phone: [facility] 02-29-2024 10:43-0400 SaO2% (BldA) [Mass fraction] 94 % Morris Alma DO Work Phone: [facility] 02-29-2024 10:43-0400 Systolic blood pressure 169 mm[Hg] Morris Montanez DO Work Phone: [facility] Comment on above: Per Dr. Montanez Pt BP is OK at this ti me. 02-29-2024 09:06-0400 Body height 188 cm Morris Browningangel DO Work Phone: [facility] 02-29-2024 09:06-0400 Body mass index (BMI) [Ratio] 44.94 kg/m2 Morris Montanez DO Work Phone: [facility] 02-29-2024 09:06-0400 Body temperature 98.29 [degF] Morris Alma DO Work Phone: [facility] 02-29-2024 09:06-0400 Body weight 158.76 kg Morris Alma DO Work Phone: [facility] 12-23-2023 10:47-0500 Body mass index (BMI) [Ratio] 47.12 kg/m2 Jean Pitts MD Work Phone: [facility] 12-23-2023 10:47-0500 Body weight 166.47 kg Jean Pitts MD Work Phone: [facility] 12-23-2023 10:47-0500 Respiratory rate 16 /min Jean Pitts MD Work Phone: [facility] 02-25-2023 08:58-0400 Body height 187.96 cm Delonte Posey Work Phone: [facility] Work Phone: 02-25-2023 08:58-0400 Body mass index (BMI) [Ratio] 45.9 kg/m2 Delonte Westfall Work Phone: [facility] Work Phone: 02-25-2023 08:58-0400 Body surface area Derived from formula 2.78 m2 Delonte Posey Work Phone: [facility] Work Phone: 02-25-2023 08:58-0400 Body weight 162.16 kg Delonte Westfalll [facility] Work Phone: 02-25-2023 08:58-0400 Diastolic blood pressure 96 mm[Hg] Delonte Westfalll Work Phone: [facility] 120 Work Phone: 02-25-2023 08:58-0400 Heart rate 97 /min Delonte Westfalll Work [facility]: [facility] Work Phone: 02-25-2023 08:58-0400 Systolic blood pressure 138 mm[Hg] Delonte Westfalll Work Phone: [facility] 120 Work Phone: 01-20-2023 08:30-0500 Body height 187.96 cm Delonte Posye Work Phone: [facility] Work Phone: 01-20-2023 08:30-0500 Body mass index (BMI) [Ratio] 44.64 kg/m2 Delonte Westfalll Work Phone: [facility] Work Phone: 01-20-2023 08:30-0500 Body surface area Derived from formula 2.75 m2 Delonte Posey Work Phone: [facility] Work Phone: 01-20-2023 08:30-0500 Body temperature 96.2 [degF] Delonte Westfalll Work Phone: [facility] Work Phone: 01-20-2023 08:30-0500 Body weight 157.72 kg Delonte Westfalll Work Phone: [facility] Work Phone: 01-20-2023 08:30-0500 Diastolic blood pressure 80 mm[Hg] Delonte Posey Work Phone: [facility] Work Phone: 01-20-2023 08:30-0500 Heart rate 117 /min Delonte Posey Work Phone: [facility] Work Phone: 01-20-2023 08:30-0500 SaO2% (BldA) [Mass fraction] 96 % Delonte Posey Work Phone: [facility] Work Phone: 01-20-2023 08:30-0500 Systolic blood pressure 133 mm[Hg] Delonte Posey Work Phone: [facility] Work Phone: Encounters Encounter Date Encounter Type Care Provider Facility Start: 08-21-2025 ambulatory CHARLES Lima ty:[facility] Start: 08-10-2025 End: 08-10-2025 Subsequent hospital visit by physician Sumit Odonnell 2 [facility] Comment on above: Chest pain due to my ocardial ischemia, unspecified ischemic chest pain type; Chest pain, unspecified Start: 08-10-2025 End: 08-10-2025 ambulatory [facility] Start: 07-06-2025 ambulatory CHARLES Lima ty:[facility] Start: 06-27-2025 End: 06-27-2025 Subsequent hospital visit by physician Sumit Tuttle 1 [facility] Comment on above: History of pancreati tis Start: 06-27-2025 End: 06-27-2025 ambulatory [facility] Start: 05-25-2025 End: 05-25-2025 Subsequent hospital visit by physician Sumit Bey 2 [facility] Comment on above: Chest pain due to my ocardial ischemia, unspecified ischemic chest pain type Start: 05-25-2025 End: 05-25-2025 ambulatory [facility]NA Helder [facility] Start: 2025 End: 2025 Office outpatient new 45 minutes Harish Florez DO Work Phone: [facility] Comment on above: Chest pain due to my ocardial ischemia, unspecified ischemic chest pain type (Primary Dx) Start: 2025 End: 2025 ambulatory [facility] Start: 05-17-2025 End: 05-17-2025 Emergency department patient visit HALLE RODRIGUEZ Work Phone: -Emergency Department Work Phone: Start: 01-17-2025 End: 01-17-2025 ambulatory [facility] Ambulatory Start: 12-26-2024 End: 12-26-2024 Office outpatient visit 25 minutes Halle Rodriguez MD Work Phone: [facility] Comment on above: Postnasal drip (Prim anton Dx); Mixed hyperlipidemia; Hypertriglyceridemia; Need for cdcbiikllr-xtctgnd-pshnanduq (Tdap) vaccine Start: 12-26-2024 End: 12-26-2024 ambulatory [facility] Ambulatory Start: 09-30-2024 End: 09-30-2024 ambulatory [facility] Facility:[facility] Start: 09-22-2024 End: 09-22-2024 Office outpatient visit 25 minutes Halle Rodriguez MD Work Phone: [facility] Comment on above: Environmental allerg ies (Primary Dx); Postnasal drip; Concentration deficit Start: 09-22-2024 End: 09-22-2024 ambulatory [facility] Ambulatory Start: 09-20-2024 End: 09-20-2024 ambulatory [facility] Facility:[facility] Start: 09-15-2024 End: 09-15-2024 ambulatory [facility] Start: 08-17-2024 End: 08-17-2024 ambulatory [facility] Start: 08-15-2024 End: 08-15-2024 Office outpatient visit 25 minutes Halle Rodriguez MD Work Phone: [facility] Comment on above: Class 3 severe obesi ty due to excess calories with serious comorbidity and body mass index (BMI) of 45.0 to 49.9 in adult (Multi) (Primary Dx); Snoring; Hypersomnia; Elevated erythrocyte sedimentation rate Start: 08-15-2024 End: 08-15-2024 ambulatory [facility]ulatory Start: 08-12-2024 End: 08-12-2024 ambulatory [facility] Start: 07-26-2024 End: 07-26-2024 ambulatory [facility] Start: 07-26-2024 End: 07-26-2024 Office outpatient visit 25 minutes Kaur Gauthier MD Work Phone: [facility] Comment on above: Pain in other joint (Primary Dx); Myalgia; Postnasal drip; Environmental allergies Start: 04-28-2024 End: 05-02-2024 ambulatory [facility] Start: 04-12-2024 End: 04-12-2024 Office outpatient visit 25 minutes Halle Rodriguez MD Work Phone: [facility] Comment on above: Family history of co ese cancer (Primary Dx); Class 3 severe obesity due to excess calories with serious comorbidity and body mass index (BMI) of 45.0 to 49.9 in adult (Multi); Postnasal drip; Dyslipidemia Start: 03-18-2024 End: 03-18-2024 Subsequent hospital visit by physician Sumit Puckettv1 [facility] Start: 03-18-2024 End: 03-18-2024 Emergency department patient visit Morris Montanez DO Work Phone: [facility] Comment on above: Chest pain, unspecif ied type (Primary Dx) Start: 02-29-2024 End: 02-29-2024 Emergency department patient visit Morris Montanez DO Work Phone: [facility] Comment on above: Acute bronchitis, un specified organism (Primary Dx); Chest pain, unspecified type Start: 02-03-2024 End: 02-03-2024 Patient encounter procedure Urology [id number] Procedure Room [facility] Comment on above: Admission for vasect ivette Start: 12-23-2023 End: 12-23-2023 Office outpatient new 30 minutes Jean Pitts MD Work Phone: [facility] Comment on above: Encounter for vasect ivette assessment Start: 05-12-2023 ambulatory Delonte Posey Facility:[id number] Start: 03-09-2023 AUDIT Delonte Posey Work Phone: [facility] Work Phone: Start: 03-06-2023 Chart Update Delonte Posey Work Phone: [facility] Work Phone: Start: 03-05-2023 ambulatory Delonte Posey Facility:[id number] Start: 02-25-2023 Office outpatient ne w 45 minutes Delonte Posey Work Phone: [facility] Work Phone: Start: 02-06-2023 ambulatory Delonte Posey Facility:[id number] Start: 01-22-2023 AUDIT Delonte Posey Work Phone: [facility] Work Phone: Start: 01-22-2023 ambulatory Delonte Posey Facility:[id number] Start: 01-20-2023 Office outpatient ne w 45 minutes Delonte Posey Work Phone: [facility] Work Phone: Start: 01-07-2023 End: 01-10-2023 Evaluation and management of inpatient SORAIDA MCKEONNAHEED [facility] Procedures Date Procedure Procedure Detail Performing Clinician Start: 08-10-2025 Cv strs tst xers&/or rx cont ecg w/o i&r Harish R Thomae DO Work Phone: Start: 05-25-2025 Us abdominal real ti me w/image limited Harish Florez DO Work Phone: Start: 2025 Follow-up visit Follow-up HARISH FLOREZ Start: 05-17-2025 Plain chest X-ray HALLE RODRIGUEZ Work Phone: Start: 05-17-2025 Estimated creatinine clearance HALLE RODRIGUEZ Work Phone: Start: 03-18-2024 Ecg routine ecg w/le ast 12 lds trcg only w/o i&r Morrissandra Montanez DO Work Phone: Start: 03-18-2024 Influenza virus A an d B and SARS-CoV-2 (COVID-19) identified in Respiratory specimen by MONSE with probe detection Morris Montanez DO Work Phone: Start: 03-18-2024 End: 03-18-2024 Comprehensive metabolic panel Morris Montanez DO Work Phone: Start: 03-18-2024 Troponin I.cardiac p kaya - Serum or Plasma by High sensitivity method Morrissandra Montanez DO Work Phone: Start: 03-18-2024 Ecg routine ecg w/le ast 12 lds trcg only w/o i&r Morris Cintia Montanez DO Work Phone: Start: 03-18-2024 Radiologic exam ches t single view Morris Cintia Montanez DO Work Phone: Start: 02-29-2024 Ecg routine ecg w/le ast 12 lds trcg only w/o i&r Morris Chamberlain Alma DO Work Phone: Start: 02-29-2024 Assay of troponin quantitative Morris Montanez DO Work Phone: Start: 02-29-2024 Influenza virus A an d B and SARS-CoV-2 (COVID-19) identified in Respiratory specimen by MONSE with probe detection Morris Cintia Montanez DO Work Phone: Start: 02-29-2024 Comprehensive metabo lic panel Morrissandra Montanez DO Work Phone: Start: 02-29-2024 Troponin I.cardiac p kaya - Serum or Plasma by High sensitivity method Morris Montanez DO Work Phone: Start: 02-29-2024 Radiologic exam ches t single view Morris Montanez DO Work Phone: Start: 07-25-2023 Lipid 1996 panel - S laci or Plasma Jean Pitts MD Work Phone: Extraction of wisdom tooth S delia Posey Work Phone: Plan of Treatment Date Care Activity Detail Author Start: 2046 RSV patients and/or patients aged 60+ years (1 - 1-dose 60+ series) RSV patients and/or patients aged 60+ years (1 - 1-dose 60+ series) [facility] Start: 2036 Zoster Vaccines (1 of 2) Zoster Vaccines (1 of 2) [facility] Start: 12-26-2034 DTaP/Tdap/Td Vaccines (8 - Td or Tdap) DTaP/Tdap/Td Vaccines (8 - Td or Tdap) [facility] Start: 07-25-2028 Lipid panel Lipid Panel [facility] Start: 07-26-2027 Diabetes mellitus screening Diabetes Screening [facility] Start: 01-22-2026 Diabetes mellitus screening Diabetes Screening [facility] Start: 07-31-2025 COVID-19 Vaccine ( season) COVID-19 Vaccine ( season) [facility] Start: 07-31-2025 Influenza vaccination [facility] Start: 06-08-2025 End: 06-08-2025 Patient encounter procedure [facility] Start: 06-07-2025 End: 06-07-2025 Patient encounter procedure [facility] Start: 05-29-2025 Influenza vaccination Influenza Vaccine (#1) [facility] Comment on above: Postponed from 07/31/2024 (Patient Refus ed) Start: 05-25-2025 End: 05-25-2025 Patient encounter procedure 05/25/2025 7:00 AM EDT Appointment [place] [id number] [place] [address] [facility] Start: 2025 End: 2026 NM Heart Perfusion W stress and W radionuclide IV Nuclear Stress Test Cardiac Nuclear Medicine Routine Chest pain due to myocardial ischemia, unspecified ischemic chest pain type Expected: 2025 (Approximate), Expires: 2026 [facility] Work Phone: Comment on above: Expected: 2025 (Approximate), Expi res: 2026 Start: 2025 End: 2026 US Abdomen RUQ US gallbladder Imaging Routine Chest pain due to myocardial ischemia, unspecified ischemic chest pain type Expected: 2025, Expires: 2026 [facility] Service Area Work Phone: Comment on above: Expected: 2025, Expires: Start: 05-17-2025 [facility] Start: 05-17-2025 [facility] Start: 12-26-2024 End: 12-26-2025 Lipid 1996 panel - Serum or Plasma Lipid Panel Lab Routine Hypertriglyceridemia Mixed hyperlipidemia Expected: 12/26/2024 (Approximate), Expires: 12/26/2025 [facility] Area Work Phone: Comment on above: Expected: 12/26/2024 (Approximate), Expi res: 12/26/2025 Start: 12-26-2024 End: 12-26-2024 Patient encounter procedure 12/26/2024 8:40 AM EST Office Visit [place] [address] [id number] Halle Rodriguez MD [facility] [address] [address] [facility] Start: 10-24-2024 End: 10-24-2024 Patient encounter procedure [facility] Start: 09-22-2024 End: 09-22-2024 Patient encounter procedure 09/22/2024 8:20 AM EDT Office Visit [place] [address] [place] [address] Halle Rodriguez MD [address] [address] [facility] Start: 08-15-2024 End: 08-15-2024 Patient encounter procedure 08/15/2024 4:00 PM EDT Office Visit [place] [address] [place] [address] Halle Rodriguez MD [address] [place] [address] [facility] Start: 08-15-2024 End: 08-15-2025 CBC panel - Blood by Automated count CBC Lab Routine Elevated erythrocyte sedimentation rate Expected: 08/15/2024 (Approximate), Expires: 08/15/2025 [facility] Work Phone: Comment on above: Expected: 08/15/2024 (Approximate), Expi res: 08/15/2025 Start: 08-15-2024 End: 08-15-2025 Erythrocyte sedimentation rate Sedimentation Rate Lab Routine Elevated erythrocyte sedimentation rate Expected: 08/15/2024 (Approximate), Expires: 08/15/2025 [facility] Work Phone: Comment on above: Expected: 08/15/2024 (Approximate), Expi res: 08/15/2025 Start: 08-15-2024 End: 08-15-2025 Home sleep apnea test (HSAT) Home sleep apnea test (HSAT) Sleep Center Routine Class 3 severe obesity due to excess calories with serious comorbidity and body mass index (BMI) of 45.0 to 49.9 in adult (Multi) Snoring Hypersomnia Expected: 08/15/2024 (Approximate), Expires: 08/15/2025 [facility] Service Area Work Phone: Comment on above: Expected: 08/15/2024 (Approximate), Expi res: 08/15/2025 Start: 07-31-2024 COVID-19 Vaccine ( season) COVID-19 Vaccine () [facility] Start: 07-31-2024 COVID-19 Vaccine () COVID-19 Vaccine () [facility] Start: 07-31-2024 Influenza vaccination [facility] Start: 07-26-2024 End: 07-26-2025 C reactive protein [Mass/volume] in Serum or Plasma [facility] Service Area Work Phone: Comment on above: Expected: 07/26/2024 (Approximate), Expi res: 07/26/2025 Start: 07-26-2024 End: 07-26-2025 CBC W Auto Differential panel - Blood [facility] Work Phone: Comment on above: Expected: 07/26/2024 (Approximate), Expi res: 07/26/2025 Start: 07-26-2024 End: 07-26-2025 Comprehensive metabolic 2000 panel - Serum or Plasma [facility] Work Phone: Comment on above: Expected: 07/26/2024 (Approximate), Expi res: 07/26/2025 Start: 07-26-2024 End: 07-26-2025 Creatine kinase [Enzymatic activity/volume] in Serum or Plasma [facility] Work Phone: Comment on above: Expected: 07/26/2024 (Approximate), Expi res: 07/26/2025 Start: 07-26-2024 End: 07-26-2025 Erythrocyte sedimentation rate [facility] Work Phone: Comment on above: Expected: 07/26/2024 (Approximate), Expi res: 07/26/2025 Start: 07-26-2024 End: 07-26-2025 Nuclear Ab [Presence] in Serum by Hep2 substrate [facility] Work Phone: Comment on above: Expected: 07/26/2024 (Approximate), Expi res: 07/26/2025 Start: 07-26-2024 End: 07-26-2025 Rheumatoid factor [Units/volume] in Serum by Nephelometry [facility] Work Phone: Comment on above: Expected: 07/26/2024 (Approximate), Expi res: 07/26/2025 Start: 07-26-2024 End: 07-26-2025 TSH with reflex to Free T4 if abnormal [facility] Work Phone: Comment on above: Expected: 07/26/2024 (Approximate), Expi res: 07/26/2025 Start: 04-12-2024 End: 04-12-2025 CBC W Auto Differential panel - Blood CBC and Auto Differential Lab Routine Class 3 severe obesity due to excess calories with serious comorbidity and body mass index (BMI) of 45.0 to 49.9 in adult (Multi) Expected: 04/12/2024 (Approximate), Expires: 04/12/2025 [facility] Service Area Work Phone: Comment on above: Expected: 04/12/2024 (Approximate), Expi res: 04/12/2025 Start: 04-12-2024 End: 04-12-2025 Comprehensive metabolic 2000 panel - Serum or Plasma Comprehensive metabolic panel Lab Routine Class 3 severe obesity due to excess calories with serious comorbidity and body mass index (BMI) of 45.0 to 49.9 in adult (Multi) Expected: 04/12/2024 (Approximate), Expires: 04/12/2025 [facility] Work Phone: Comment on above: Expected: 04/12/2024 (Approximate), Expi res: 04/12/2025 Start: 04-12-2024 End: 04-12-2025 Lipid 1996 panel - Serum or Plasma Lipid panel Lab Routine Dyslipidemia Expected: 04/12/2024 (Approximate), Expires: 04/12/2025 [facility] Work Phone: Comment on above: Expected: 04/12/2024 (Approximate), Expi res: 04/12/2025 Start: 02-03-2024 End: 02-03-2024 Patient encounter procedure 02/03/2024 4:15 PM EST Procedure Visit [address] [place] [address] [facility] Start: 07-31-2023 COVID-19 Vaccine ( season) COVID-19 Vaccine ( season) [facility] Start: 07-31-2023 Influenza vaccination Influenza Vaccine (#1) [facility] Start: 2013 HPV Vaccines (1 - 3-dose standard series) HPV Vaccines (1 - 3-dose standard series) [facility] Start: 11-05-2009 Varicella vaccination Varicella Vaccines (1 of 2 - 13+ 2-dose series) [facility] Start: 2008 DTaP/Tdap/Td Vaccines (1 - Tdap) DTaP/Tdap/Td Vaccines (1 - Tdap) [facility] Start: 2005 Hepatitis A Vaccines (1 of 2 - Risk 2-dose series) Hepatitis A Vaccines (1 of 2 - Risk 2-dose series) [facility] Start: 2005 Hepatitis B Vaccines (1 of 3 - 19+ 3-dose series) Hepatitis B Vaccines (1 of 3 - 19+ 3-dose series) [facility] Start: 2004 Hepatitis C screening Hepatitis C Screening [facility] Start: 1999 Varicella vaccination Varicella Vaccines (1 of 2 - 13+ 2-dose series) [facility] Start: 1987 MMR Vaccines (1 of 1 - Standard series) MMR Vaccines (1 of 1 - Standard series) [facility] Start: 1987 Varicella vaccination Varicella Vaccines (1 of 2 - 2-dose childhood series) [facility] Start: 1986 COVID-19 Vaccine (#1) COVID-19 Vaccine (#1) [facility] Start: 1986 Hepatitis B Vaccines (1 of 3 - 3-dose series) Hepatitis B Vaccines (1 of 3 - 3-dose series) [facility] Start: 1986 HIV screening HIV Screening [facility] Start: 1986 Skin Cancer Screening Skin Cancer Screening [facility] Start: 1986 Yearly Adult Physical Yearly Adult Physical [facility] End: 06-27-2025 CT Abdomen and Pelvis W contrast IV [facility] Service Area Work Phone: Comment on above: Once for 1 Occurrences starting 06/27/20 until 06/27/2025 ECG 12 lead [facility] Service Ar ea Work Phone: Comment on above: As needed until discontinued starting End: 03-18-2024 ECG 12 lead [facility] Service Area Work Phone: Comment on above: Every 1 hour for 2 Occurrences starting 03/18/2024 until 03/18/2024, 1 completed As needed until disc ontinued starting 03/18/2024 Once for 1 Occurrenc es starting 03/18/2024 until 03/18/2024 Patient Education ED Chest Pain, Noncardiac ED Hypertension, To Be Confirmed [facility] Work Phone: Patient referral [facility] Work Phone: Troponin T.cardiac [Mass/volume] in Serum or Plasma by High sensitivity method [facility] Immunizations Immunization Date Immunization Notes Care Provider Fa cility 12-26-2024 tetanus toxoid, redu dahiana diphtheria toxoid, and acellular pertussis vaccine, adsorbed Halle Rodriguez MD Work Phone: [facility] 09-05-2019 influenza virus vaccine, unspecified formulation Jean Pitts MD Work Phone: [facility] Work Phone: Payers Date Payer Category Payer Self-pay 2023 Managed Care (Private) [facility] [id number] 2022 Unknown 2022 Unknown [id number] 1986 Unknown [id number] 2.16.840.1.025583.3.579.2. 983 1986 Unknown [id number] 2.16.840.1.338323.3.579.2. 1069 1986 Unknown [id number] 2.16.840.1.317547.3.579.2. 1069 1986 Unknown [id number] 2.16.840.1.889035.3.579.2. 1068 1986 Unknown [id number] 2.16.840.1.880165.3.579.2. 9 1986 Unknown [id number] 2.16.840.1.691896.3.579.2. 903 1986 Unknown [id number] 2.16.840.1.489166.3.579.2. 1244 1986 Unknown [id number] 2.16.840.1.903043.3.579.2. 1244 1986 Unknown [id number] 2.16.840.1.416609.3.579.2. 124 1986 Unknown [id number] 2.16.840.1.995406.3.579.2. 1243 1986 Unknown [id number] 2.16.840.1.399070.3.579.2. 124 1986 Unknown [id number] 2.16.840.1.561403.3.579.2. 1243 1986 Unknown [id number] 2.16.840.1.411289.3.579.2. 124 1986 Unknown [id number] 2.16.840.1.670928.3.579.2. 1243 1986 Unknown [id number] 2.16.840.1.246783.3.579.2. 1243 1986 Unknown [id number] 2.16.840.1.974089.3.579.2. 1243 1986 Unknown [id number] 2.16.840.1.792698.3.579.2. 1243 1986 Unknown [id number] 2.16.840.1.260877.3.579.2. 1243 Unknown [id number] 2.16.840.1.943347.3.579.2. 462 Unknown [id number] 2.16.840.1.191436.3.579.2. 462 Unknown [id number] 2.16.840.1.678045.3.579.2. 462 Unknown [id number] 2.16.840.1.815189.3.579.2. 462 Unknown [id number] 2.16.840.1.860870.3.579.2. 462 Social History Date Type Detail Facility Start: 12-23-2023 End: 01-17-2025 Former smoker Former smoker [facility] Work Phone: Start: 12-23-2023 End: 04-12-2024 Tobacco smoking status NHIS Ex-smoker [facility] Work Phone: Start: 05-11-2002 End: 07-31-2017 History of tobacco use Current smoker [facility] Work Phone: Start: 05-11-2002 End: 07-31-2017 History of tobacco use Cigarette Smoker [facility] Work Phone: Start: 12-23-2023 End: 04-12-2024 Tobacco use and exposure Smokeless tobacco non-user [facility] Work Phone: Start: 12-23-2023 End: 2025 Alcohol intake Current drinker of alcohol (finding) [facility] Work Phone: Start: 1985 Sex Assigned At Not on file [facility] Work Phone: Start: 02-03-2024 End: 01-17-2025 Gender identity Not on file [facility] Work Phone: Start: 12-13-2023 End: 12-26-2024 Exposure to SARS-CoV-2 (event) Not sure [facility] History of tobacco use Passive smoker [facility] Work Phone: Start: 05-17-2025 Tobacco smoking status NHIS Never smoked tobacco (finding) [facility] Start: 1985 Sex Assigned At Male [facility] Start: 10-25-2022 Sex Male [facility] Start: 06-27-2025 Gender identity Identifies as male gender (finding) [facility] Work Phone: Start: 06-27-2025 Sexual orientation Heterosexual (finding) [facility] Work Phone: Mental Status Date Assessment Result Facility 05-17-2025 Cognitive function Awake;Alert;A ppropriate;Fol lows Commands [facility] Work Phone: Clinical Notes 12-31-2022 to 2025 Harish Florez, DO - 2025 2:45 PM EDT Note Date & Type Note Facility 2025 History of Present illness Narrative Subjective Patient ID: Delonte Baltazar is a 40 y.o. male who presents for Follow-up (FUV today from an ER visit 05/17 at [facility] for elevated HR and BP. Patient reports that they said possible GI issue (ulcers) Patient states that he does have some burning in the chest. Pepcid OTC isnt helping with the burning in the chest. ). HPI 40-year-old male with not seen in several years presents in follow-up from ER. He was at outlying ER with atypical chest pain. States that he had lunch approximately 90 minutes earlier he was driving down the road from [facility] to [place] developed pain in his right upper quadrant radiating to his upper shoulder back and epigastrium associated with belching a feeling of fullness and he did becomes slightly sweaty. He went to the [place] ER, EKG, chest x-ray and cardiac markers were unremarkable and was told was likely reflux. He was given Pepcid and advised to follow-up with his family doctor. He has not had the ability to see his family doctor but has made appointment here and presents today. He said no similar episodes since his trip to the ER. He admits that he is careful with exercise but he is not concerned after talking to a coworker had a heart attack that perhaps this may be cardiac. He denies any typical dyspepsia following meals has had history of pancreatitis in the past, gallbladder workup and pancreatic workup at that time 3 years ago was unremarkable. He admits his bowel movements are normal he denies any bloating denies any dysphagia indigestion or nausea following meals. He is currently on Pepcid AC and feels that his providing no benefit Review of Systems Constitutional: Negative. HENT: Negative. Eyes: Negative. Respiratory: Negative. Cardiovascular: Negative. Gastrointestinal: Negative. Endocrine: Negative. Genitourinary: Negative. Musculoskeletal: Negative. Neurological: Negative. Hematological: Negative. Psychiatric/Behavioral: Negative. Objective Physical Exam Constitutional: General: He is awake. Appearance: Normal appearance. HENT: Head: Normocephalic and atraumatic. Nose: Nose normal. Mouth/Throat: Mouth: Mucous membranes are moist. Eyes: Pupils: Pupils are equal, round, and reactive to light. Neck: Thyroid: No thyroid mass. Trachea: Phonation normal. Cardiovascular: Rate and Rhythm: Normal rate and regular rhythm. Heart sounds: Normal heart sounds. Pulmonary: Effort: Pulmonary effort is normal. No respiratory distress. Breath sounds: Normal air entry. No decreased breath sounds, wheezing, rhonchi or rales. Abdominal: General: Bowel sounds are normal. There is no distension. Palpations: Abdomen is soft. Tenderness: There is no abdominal tenderness. Musculoskeletal: Cervical back: Neck supple. Right lower leg: No edema. Left lower leg: No edema. Skin: General: Skin is warm. Capillary Refill: Capillary refill takes less than 2 seconds. Neurological: General: No focal deficit present. Mental Status: He is alert and oriented to person, place, and time. Mental status is at baseline. Cranial Nerves: Cranial nerves 2-12 are intact. Motor: Motor function is intact. Psychiatric: Attention and Perception: Attention and perception normal. Mood and Affect: Mood normal. Speech: Speech normal. Behavior: Behavior normal. Assessment/Plan Diagnoses and all orders for this visit: Chest pain due to myocardial ischemia, unspecified ischemic chest pain type - US gallbladder; Future - pantoprazole (ProtoNix) 40 mg EC tablet; Take 1 tablet (40 mg) by mouth once daily. Do not crush, chew, or split. - Nuclear Stress Test; Future Symptoms may represent gallbladder disease, atypical reflux or cardiac angina. Will arrange stress test right upper quadrant ultrasound discontinue Pepcid begin Protonix 40 mg daily. To take with evening meal. Will follow-up after stress testing if cardiac workup is negative no improvement with Protonix and ultrasound of gallbladder is unremarkable then we will proceed with EGD. Harish Florez DO 05/23/25 3:16 PM documented in this encounter [facility] Work Phone: 05-17-2025 Discharge summary [facility] 05-17-2025 Radiology Diagnostic study note [facility] Imaging Services [address] [place] [address] Chest 1 View (Portable) MR#: [id number] Acct: [id number] Name: DELONTE BALTAZAR Rep #: [id number] : 1985 M 39 From: Cindi Rosales MD PCP: HALLE RODRIGUEZ Status: REG ER Study:Chest 1 View (Portable) Date of Exam: 05/17/25 Exam# [id number] Ordering Dr: Dlyon Holt MD PROCEDURE: CHEST 1 VIEW (PORTABLE) 05/17/2025 REASON FOR EXAM: CHEST PAIN TECHNIQUE: Frontal view of the chest. COMPARISON: None FINDINGS: Mild pulmonary vascular congestion. No focal consolidation. Bibasilar subsegmental atelectasis. No pleural effusion or pneumothorax. Cardiac silhouette is within normal limits. RAD/Chest 1 View (Portable) IMPRESSION: Mild pulmonary vascular congestion. No focal consolidation. Bibasilar subsegmental atelectasis. Reading Location: [id number] CC: Dr. 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: Signed [facility] 05-17-2025 Discharge summary Note Date/Time May 17, 2025 9:06pm [facility] Medical Records Department [address] [place] [address] Emergency Department Summary 05/17/25 MR#: [id number] Acct: [id number] Name: DELONTE BALTAZAR Rep #:[id number] : 1985 39 From: Mauricio Holt MD PCP: HALLE RODRIGUEZ Status:REG ER Location: ED HPI History of Present Illness Chief Complaint: Chest Other Detail of Chief Complaint: Right-sided chest pain and shoulder pain Informant: patient Onset/Context/Timing Onset: Today (1 hour prior to presentation while driving) and - (Has had intermittent episodes for some time. [facility] Activity at onset: sudden and rest Timing: Intermittent Quality: Positive for Burning Location: Right Parasternal Current Severity: Mild Maximum Severity: Moderate Worsened By: Nothing Relieved By: Nothing Associated Symptoms: Negative for Nausea, Vomiting, Diaphoresis, Dyspnea, Cough,Fever, Lightheadedness, Acid Reflux or Palpitations Narrative Narrative: Patient is a 39-year-old male. He is a former smoker. States he is gained a lot of weight since he quit smoking a couple years ago. He has had intermittent chest pain. Describes today's as burning. Concerned because it radiates to hisright shoulder. He had no associated symptoms. This occurred while at rest. He denies history of peptic ulcer disease, hiatal hernia reflux or sour eructation. He denies black or maroon-colored stool. He denies history of VTE. He has no risk factors for VTE. He denies leg pain, swelling discoloration. He does have problems with sinuses. He states he was seen by ENT here in [place] and they recommended surgical procedure. He now resides near [place] and saw certified respiratory therapist in [place] and he was informed that he does not need surgery. He apparently does have history of allergies. Prior Similar Symptoms: Yes and - (Told there was an infection) Recent Illness/Hospitalization: No CVD Risk Factors: Negative for Hypertension, Diabetes, Hypercholesterolemia, Family History 1' </=55 or Smoking (Former. Smoked for approximate 15 years.) PE Risk Factors: Negative for Recent Travel/Surgery, Recent Immobilization, Prior DVT or PE, Cancer or OCP + Smoking + >/=35 TAD Risk Factors: Negative for Marfan's Syndrome, Hypertension or Family History PFSH PFSH Medical History no medical history no medical history Allergy/AdvReac Type Severity Reaction Status Date / Time No Known Allergies Allergy Verified 05/17/25 15:00 Social History (Updated 05/17/25 @ 20:[address] Mauricio Holt MD) household members: spouse Smoking Status: Never smoker ROS ROS ED Constitutional Constitutional ED: Denies chills, fever(s) or subjective Eyes Eyes: Reports none ENT ENT ED: Reports rhinorrhea; Denies ear pain or sore throat Cardiovascular Cardiovascular: Reports as per HPI; Denies orthopnea or paroxysmal nocturnal dyspnea Respiratory/Chest Respiratory/Chest: Denies cough, dyspnea, dyspnea on exertion, orthopnea or paroxysmal nocturnal dyspnea Gastrointestinal Gastrointestinal: Denies abdominal pain, melena, nausea or vomiting Musculoskeletal Musculoskeletal: Denies arthralgias, back pain or myalgias Hematologic/Lymphatic Hematologic/Lymphatic: Denies easy bleeding or easy bruising EXAM Physical Exam Const Vital Signs: 05/17/25 14:58 05/17/25 16:01 05/17/25 17:00 Temperature 98.3 F Temperature Source Oral Pulse Rate 117 H 103 H 103 H Respiratory Rate 18 19 H Blood Pressure 187/116 H 194/91 H 171/111 H Blood Pressure Mean 139 125 131 Pulse Ox 100 100 97 Oxygen Delivery Method Room Air Room Air 05/17/25 17:01 05/17/25 18:00 05/17/25 19:24 Temperature Temperature Source Pulse Rate 104 H Respiratory Rate 14 Blood Pressure 158/111 H 162/106 H Blood Pressure Mean 126 124 Pulse Ox 97 Oxygen Delivery Method Room Air Room Air 05/17/25 20:26 Temperature Temperature Source Pulse Rate Respiratory Rate Blood Pressure 153/104 H Blood Pressure Mean 120 Pulse Ox Oxygen Delivery Method Positive well nourished and well developed Constitutional Narrative: BMI is 45.8. Patient appears no distress. Blood pressure is elevated. He states a week or 2 ago his blood pressure was 120 systolic. General Appearance ED: well developed; Negative for pallor HEENT normocephalic and atraumatic Eyes PERRL and EOMs intact bilaterally General Eye ED: Negative for pale conjunctiva or scleral icterus Neck Neck Narrative: Unable to assess for JVD based on body habitus. Resp clear to auscultation bilaterally Cardio regular rate, regular rhythm, S1 normal heart sound, S2 normal heart sound and no murmurs GI normal to inspection, nondistended, normoactive bowel sounds, soft to palpation,non-tender, non-distended and no masses Extremity normal to inspection Neuro oriented x3 and CN's II-XII intact bilaterally Sensorium / Orientation: awake and alert Psych mental status grossly normal Skin no rashes or lesions noted and no wounds General Skin Exam: Negative for jaundice or pallor MDM MDM MDM Narrative Medical decision making narrative: Patient with burning chest pain. This may represent cardiac most likely noncardiac and will need to include esophagitis, gastritis, duodenitis versus ulcer. He has no history of reflux and symptoms not consistent with reflux. Patient's presentation is not consistent with PE or DVT. History is not consistent with aortic dissection. With him having symmetric breath sounds doubt pulm pneumothorax. His workup included EKG appropriate blood work including troponin and 2-hour troponin. History & Record Review Discussion w/independent historian: Patient and Significant other Lab Data Attestation: I reviewed the patient's lab results. Lab results narrative: White count is elevated 11,600 which is insignificant. H&H is normal. Electrolyte panel is normal. 1st and 2nd troponin were less than 6. EKG was not normal. Labs: Laboratory Results - last 24 hr 05/17/25 05/17/25 16:50 19:19 WBC 11.6 H RBC 5.55 Hgb 15.5 Hct 44.9 MCV 80.9 MCH 27.9 MCHC 34.5 RDW Std Deviation 38.8 RDW Coeff of Ebony 13.3 Plt Count 328 MPV 9.2 Immature Gran % (Auto) 0.800 Neut % (Auto) 70.5 H Lymph % (Auto) 22.5 Breathitt % (Auto) 4.7 Eos % (Auto) 0.8 Baso % (Auto) 0.7 Absolute Neuts (auto) 8.2 H Absolute Lymphs (auto) 2.61 Nucleated RBC % 0 Sodium 136 Potassium 3.9 Chloride 100 Carbon Dioxide 22.5 Anion Gap 14 BUN 15 Creatinine 0.83 Estim Creat Clear Calc 194.58 Est GFR (MDRD) Non-Af 115 BUN/Creatinine Ratio 17.4 Glucose 93 Calcium 9.9 Troponin T High Sens < 6 Troponin T Hi Sens 2 Hr < 6 Radiography Chest X-Ray - ED: Read by ED Physician (Film is limited due to the fact of body habitus. Patient has normal cardiac silhouette and size. There appears to be some atelectasis at the bases. Hilum is unremarkable. Osseous structures are unremarkable. There is no evidence of infiltrate, effusion, pneumothorax.) Diagnostic Testing: Clinical Impression(s) from Imaging Studies Chest X-Ray 05/17/25 17:10 IMPRESSION: Mild pulmonary vascular congestion. No focal consolidation. Bibasilar subsegmental atelectasis. Reading Location: [facility] EK Initial EKG: Attestation: I personally reviewed and interpreted this EKG as follows: Interpretation: Sinus Tachycardia (Sinus tachycardia rate of 113. There is nonseptic changes noted inferiorly. MI interval is 156 ms. Cures duration 86 ms. QT duration 326 ms. [place] is normal. EKG was obtained from [facility]. EKG is unchanged since March 18, 2024.) Prior: Unchanged (Obtained EKG from [facility] February 2024.) Differential Diagnosis Chest pain/SOB: ACS ACS: Positive for no evidence of ACS based on cardiac biomarkers and history not suggestive of ischemia pain, pneumothorax Reason(s) pneumothorax less likely: Positive for bilateral breath sounds and DECK CADET withhout PTX, pneumonia Reason(s) pneumonia less likely: Positive for no infiltrate on CXR, no noted fever and symptoms not consistent with acute infection, aortic dissection Reason(s) Aortic dissection less likely:: Positive for normal vascular exam, no history of HTN, normal neurological exam, no significant risk factors for dissection, no widened mediastinum on CXR, pain not sudden onset, noripping/tearing pain and no pain to back, CHF Reason(s) CHF less likely: Positive for no significant peripheral edema, no orthopnea, no evidence of fluidoverload on CXR and BtNP not significantly elevated over normal/baseline and COPD Reason(s) COPD less likely: Positive for no significant wheezing on exam, no tachypnea, no conversational dyspnea and normal air movement noted on auscultation on lungs Treatment and Re-Evaluation :: Patient was informed this most likely is GI etiology. Recommend following up with his GI specialist. Also recommend follow-up with his primary care physician for elevated blood pressure reading. Discharge Plan Triage Chief Complaint: Chest Other ED Provider: Mauricio Holt Dx/Rx/DC Orders Clinical Impression: Burning chest pain, Elevated blood-pressure reading without diagnosis of hypertension, Sinus tachycardia, Adult BMI 45.0-49.9 kg/sq m Instructions: ED Chest Pain, Noncardiac, ED Hypertension, To Be Confirmed Primary Care Provider: HALLE RODRIGUEZ Referrals: HALLE RODRIGUEZ [Other] Activity Restrictions/Additional Instructions: 1. Follow-up with your doctor in 1 to 2 weeks to have your blood pressure rechecked. 2. Follow-up with your GI specialist to evaluate your discomfort since this may be due to GI cause. 3. Recommend Pepcid 20 mg twice a day. You could buy the [id number] to see if this helps. Print Language: Greek Disposition Disposition: Home, Self Care What to do if you have Problems For any increased pain, shortness of breath, bleeding, nausea or vomiting, chest pain, or any unexpected problems, contact your Primary Care Provider. Call [facility] ([phone]) or report to the closest Emergency Room. Call 911 if necessary. 05/17/252105 <Electronically signed by Mauricio Holt MD> Cosigner Signature (if applicable): CC: HALLE RODRIGUEZ ~ Signed [facility] Work Phone: 1([phone]) 574-652606-18-2025 Hospital Discharge instructions Additional Instructions 1. Follow-up with your doctor in 1 to 2 weeks to have your blood pressure rechecked. 2. Follow-up with your GI specialist to evaluate your discomfort since this may be due to GI cause. 3. Recommend Pepcid 20 mg twice a day. You could buy the [id number] to see if this helps.[facility] Work Phone: 1(243) 715-375201-27-2025 History of Present illness Narrative* Halle Rodriguez MD - 12/26/2024 8:40 AM EST Subjective: Delonte Baltazar is a 39 y.o. male who presents to clinic today for Follow-up (3 MO FU ) He notes that he's been using his CPAP only when he's not congested. He hasn't noticed a drastic change. He's been eating better and working out. This has helped his energy levels. He had a physical done for life insurance. He notes that his total Cholesterol 266, HDL 41, LDL 153, TG 357, hgb A1c 5.5, BP 126/80, 124/78, 128/82, pulse of 68 He has stopped his rosuvastatin due to aches/pains Review of Systems Assessment/Plan: Delonte Baltazar is a 39 y.o. male who presents to clinic today to address the following issues: 1. Postnasal drip montelukast (Singulair) 10 mg tablet 2. Mixed hyperlipidemia Lipid Panel Lipid Panel 3. Hypertriglyceridemia Lipid Panel Lipid Panel 4. Need for pwnusjsstn-qeuuzjz-luwdjuvdt (Tdap) vaccine Tdap vaccine, age 7 years and older (BOOSTRIX) Postnasal drip/congestion Recommended that patient take his Singulair, Flonase and antihistamines daily in addition to his allergy shots Hyperlipidemia/hypertriglyceridemia: Chronic problem, unresolved Recommended repeat lipid panel prior to follow-up appointment Problem List Items Addressed This Visit Postnasal drip - Primary Relevant Medications montelukast (Singulair) 10 mg tablet Other Visit Diagnoses Mixed hyperlipidemia Relevant Orders Lipid Panel Hypertriglyceridemia Relevant Orders Lipid Panel Need for erubvaozqp-zeoukpl-idwmwsdyi (Tdap) vaccine Relevant Orders Tdap vaccine, age 7 years and older (BOOSTRIX) (Completed) There are no Patient Instructions on file for this visit. Follow up: 6 months Return precautions discussed. An After Visit Summary was given to the patient. All questions were answered and patient in agreement with plan. Objective: BP 138/82 Pulse 86 Ht 1.88 m (6' 2) Wt (!) 158 kg (348 lb 3.2 oz) SpO2 99% BMI 44.71 kg/m Physical Exam Vitals and nursing note reviewed. Constitutional: General: He is not in acute distress. Appearance: He is obese. He is not ill-appearing. HENT: Head: Normocephalic and atraumatic. Nose: Congestion present. No rhinorrhea. Mouth/Throat: Mouth: Mucous membranes are moist. Eyes: General: No scleral icterus. Right eye: No discharge. Left eye: No discharge. Extraocular Movements: Extraocular movements intact. Conjunctiva/sclera: Conjunctivae normal. Cardiovascular: Rate and Rhythm: Normal rate and regular rhythm. Pulmonary: Effort: Pulmonary effort is normal. No respiratory distress. Breath sounds: Normal breath sounds. Skin: General: Skin is dry. Neurological: General: No focal deficit present. Mental Status: He is alert and oriented to person, place, and time. Psychiatric: Thought Content: Thought content normal. Judgment: Judgment normal. I spent 20 minutes in total time for this visit including all related clinical activities before, during, and after the visit excluding other billable activities/procedure time. Halle Rodriguez MD documented in this [facility] Work Phone: [phone]) 144-503310-24-2024 History of Present illness Narrative* Halle Rodriguez MD - 09/22/2024 8:20 AM EDT Subjective: Delonte Baltazar is a 39 y.o. male who presents to clinic today for Follow-up (1 MO FU ) He notes that he saw rheumatology Thursday, He notes that he woke up congested and thick drainage, he notes his joints hurt worse. He did miss his allergy shots this week due to being out of town. He also notes his BP is up due to not feeling well. He does take his BP at home and his BP was 132/88. 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 He declines flu shot. Review of Systems Assessment/Plan: Delonte Baltazar is a 39 y.o. male with a history of lipidemia, postnasal drip, obesity, pancreatitis who presents to clinic today to address the following issues: 1. Environmental allergies Referral to ENT 2. Postnasal drip Referral to ENT 3. Concentration deficit Referral to Adult Neuropsychology I had a discussion with Delonte regarding his continued congestion postnasal drip and sinus issues. Heultimately would like to seek a secondary opinion and I referred him to local ENT Dr. Pickens. We discussed that if he does not improve that it would be reasonable to consider evaluation at more of an academic tertiary care center. Additionally I contacted his pharmacy is managing his CPAP and he has great compliance and is having 0 events per hour at this time. He does still have concentration difficulties and he feels like this is affecting his quality of life. He would like to be evaluated for ADHD and I referred him for neuropsychological testing. Problem List Items Addressed This Visit Postnasal drip Relevant Orders Referral to ENT Other Visit Diagnoses Environmental allergies - Primary Relevant Orders Referral to ENT Concentration deficit Relevant Orders Referral to Adult Neuropsychology There are no Patient Instructions on file for this visit. Follow up: 3 months or sooner as neede Return precautions discussed. An After Visit Summary was given to the patient. All questions were answered and patient in agreement with plan. Objective: BP (!) 150/98 Pulse 89 Ht 1.88 m (6' 2) Wt (!) 162 kg (356 lb 6.4 oz) SpO2 99% BMI 45.76kg/m Physical Exam Vitals and nursing note reviewed. Constitutional: General: He is not in acute distress. Appearance: He is obese. He is not ill-appearing. HENT: Head: Normocephalic and atraumatic. Nose: Congestion present. Mouth/Throat: Mouth: Mucous membranes are moist. Eyes: General: No scleral icterus. Right eye: No discharge. Left eye: No discharge. Extraocular Movements: Extraocular movements intact. Conjunctiva/sclera: Conjunctivae normal. Pulmonary: Effort: No respiratory distress. Skin: General: Skin is dry. Neurological: General: No focal deficit present. Mental Status: He is alert and oriented to person, place, and time. Psychiatric: Thought Content: Thought content normal. Judgment: Judgment normal. I spent 23 minutes in total time for this visit including all related clinical activities before, during, and after the visit excluding other billable activities/procedure time. Halle Rodriguez MD [facility] Phone: [phone]) [phone] History of Present illness Narrative* Halle Rodriguez MD - 08/15/2024 4:00 PM EDT Subjective: Delonte A Seal Seal is a 39 y.o. male who presents to clinic today for Follow-up (Follow up for labs, states feeling like he is feeling sinus pressure again, muscle aches and joint pain all over (hands,calves, feet, shoulder). ) He notes that he is getting allergy shots now and has noted some improvement with flonase. He is supossed to get sinuplasty and cannot get it approved through his insurance. He continues to have arm pain and hand pain. He's noting calf tightness and stiffness as well. He does continue to have elevated ESR but CBC did normalize. He got doxycycline hyclate June 24, 2024 from his ENT. He also had augmentin in April. Review of Systems Assessment/Plan: Delonte Baltazar is a 39 y.o. male with a history of lipidemia, postnasal drip, obesity, pancreatitis who presents to clinic today to address the following issues: 1. Class 3 severe obesity due to excess calories with serious comorbidity and body mass index (BMI)of 45.0 to 49.9 in adult (Multi) Home sleep apnea test (HSAT) 2. Snoring Home sleep apnea test (HSAT) 3. Hypersomnia Home sleep apnea test (HSAT) 4. Elevated erythrocyte sedimentation rate Referral to Rheumatology Sedimentation Rate CBC I discussed with Delonte that I am not entirely sure what is causing his elevated ESR. We discussed options including rheumatologic disease, sleep apnea or other causes. At this time he is going to continue to work on anti-inflammatory lifestyle changes including dietary modifications and weight loss.Additionally, we will obtain sleep apnea due to his snoring and hypersomnia on certain days. He also notes it takes him quite a while to fall asleep and he does not often get restful sleep. Additionally will refer to rheumatology for further evaluation and management. -Repeat CBC and ESR in 1 month Problem List Items Addressed This Visit Class 3 severe obesity due to excess calories with serious comorbidity and body mass index (BMI) of45.0 to 49.9 in adult (Multi) - Primary Relevant Orders Home sleep apnea test (HSAT) Other Visit Diagnoses Snoring Relevant Orders Home sleep apnea test (HSAT) Hypersomnia Relevant Orders Home sleep apnea test (HSAT) Elevated erythrocyte sedimentation rate Relevant Orders Referral to Rheumatology Sedimentation Rate CBC There are no Patient Instructions on file for this visit. Follow up: 1 month or sooner as needed Return precautions discussed. An After Visit Summary was given to the patient. All questions were answered and patient in agreement with plan. Objective: BP 132/90 Pulse 79 Ht 1.88 m (6' 2) Wt (!) 162 kg (358 lb) SpO2 97% BMI 45.96 kg/m Physical Exam Vitals and nursing note reviewed. Constitutional: General: He is not in acute distress. Appearance: He is obese. He is not ill-appearing. HENT: Head: Normocephalic and atraumatic. Right Ear: Tympanic membrane normal. Left Ear: Tympanic membrane normal. Nose: Congestion present. No rhinorrhea. Mouth/Throat: Mouth: Mucous membranes are moist. Pharynx: No oropharyngeal exudate or posterior oropharyngeal erythema. Eyes: General: No scleral icterus. Right eye: No discharge. Left eye: No discharge. Extraocular Movements: Extraocular movements intact. Conjunctiva/sclera: Conjunctivae normal. Cardiovascular: Rate and Rhythm: Normal rate and regular rhythm. Pulmonary: Effort: Pulmonary effort is normal. No respiratory distress. Breath sounds: Normal breath sounds. Skin: General: Skin is dry. Neurological: General: No focal deficit present. Mental Status: He is alert and oriented to person, place, and time. Psychiatric: Thought Content: Thought content normal. Judgment: Judgment normal. I spent 16 minutes in total time for this visit including all related clinical activities before, during, and after the visit excluding other billable activities/procedure time. Hlale Rodriguez MD documented in this [facility] Work Phone: 1(691) 102-887408-27-2024 History of Present illness Narrative* Debi Stein LPN - 07/26/2024 11:40 AM EDT Complaint of ongoing issues with his sinus; was supposed to have sinus surgery but his insurance wouldn't cover it * Kaur Gauthier MD - 07/26/2024 11:40 AM EDT Subjective Delonte A Seal is a 39 y.o. male who presents for Sinusitis. HPI Pt of Dr Rodriguez. Here with sinus problems, has had intermittently for months, at least since February. Has had a few rounds of antibiotics and oral steroids. 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 States ENT was planning sinus surgery but insurance wouldn't cover surgery. Nasal congestion, facial pressure. States had ct of sinuses which came back normal. On flonase. Has tried claritin several years ago. States he has body aches, feels like he might have an infection, states terrible quality of life the last few months. Stopped rosuvastatin to see if helped body aches. Former smoker, states gained a fair amount of weight after quitting. Borderline bp today recommend keep an eye on that. Review of Systems All other systems reviewed and are negative. . Objective Visit Vitals BP 138/90 (BP Location: Left arm, Patient Position: Sitting) Pulse 88 Physical Exam Vitals reviewed. HENT: Head: Normocephalic. Mouth/Throat: Comments: Clear drainage, cobblestoning Cardiovascular: Rate and Rhythm: Normal rate and regular rhythm. Skin: General: Skin is warm and dry. Neurological: General: No focal deficit present. Mental Status: He is alert. Psychiatric: Mood and Affect: Mood normal. Assessment/Plan Problem List Items Addressed This Visit Postnasal drip Relevant Medications montelukast (Singulair) 10 mg tablet Other Visit Diagnoses Pain in other joint - Primary Relevant Orders C-reactive protein Sedimentation Rate TSH with reflex to Free T4 if abnormal Rheumatoid factor JENNIFER CBC and Auto Differential Comprehensive Metabolic Panel CK Myalgia Relevant Orders C-reactive protein Sedimentation Rate TSH with reflex to Free T4 if abnormal Rheumatoid factor JENNIFER CBC and Auto Differential Comprehensive Metabolic Panel CK Environmental allergies Continue flonase daily, add claritin 10 mg daily, and singulair as directed. Fup with LY in a few weeks, call concerns Side effects discussed. Kaur Gauthier MD [facility]: [phone]) [phone] Evaluation + Plan note* Assessment & Plan Note - Halle Rodriguez MD - 04/12/2024 12:08 PM EDTAssociated Problem(s): Dyslipidemia - Chronic problem, unresolved, new to this provider, requires further workup and treatment - Discussed with pt that we should restart rosuvastatin and recheck lipids in 6 months [facility] Work Phone: [phone] Evaluation + Plan note* Assessment & Plan Note - Halle Rodriguez MD - 04/12/2024 12:08 PM EDTAssociated Problem(s): Postnasal drip - Chronic problem, unresolved, new to this provider, requires further workup and treatment - Discussed how nasal anatomy works and how inflamed nasal turbinates can lead to postnasal drip and coughing - discussed role of inhaled nasal steroids and how to take them, information was given in after visit summary [facility] Work Phone: [phone] Miscellaneous Notes* Assessment & Plan Note - Halle Rodriguez MD - 04/12/2024 12:08 PM EDTAssociated Problem(s): Dyslipidemia - Chronic problem, unresolved, new to this provider, requires further workup and treatment - Discussed with pt that we should restart rosuvastatin and recheck lipids in 6 months * Assessment & Plan Note - Halle Rodriguez MD - 04/12/2024 12:08 PM EDT Associated Problem(s): Postnasal drip - Chronic problem, unresolved, new to this provider, requires further workup and treatment - Discussed how nasal anatomy works and how inflamed nasal turbinates can lead to postnasal drip and coughing - discussed role of inhaled nasal steroids and how to take them, information was given in after visit summary * Assessment & Plan Note - Halle Rodriguez MD - 04/12/2024 12:07 PM EDT Associated Problem(s): Class 3 severe obesity due to excess calories with serious comorbidity and body mass index (BMI) of 45.0 to 49.9 in adult (Multi) - Chronic problem, unresolved, new to this provider, requires further workup and treatment - Discussed with pt different lifestyle options to help with weight loss, weight watchers, exerciseand surgical options [facility]: [phone] Evaluation + Plan note* Assessment & Plan Note - Halle Rodriguez MD - 04/12/2024 12:07 PM EDTAssociated Problem(s): Class 3 severe obesity due to excess calories with serious comorbidity and anuj dy mass index (BMI) of 45.0 to 49.9 in adult (Multi) - Chronic problem, unresolved, new to this provider, requires further workup and treatment - Discussed with pt different lifestyle options to help with weight loss, weight watchers, exerciseand surgical options [facility] Work Phone: [phone] History of Present illness Narrative* Halle Rodriguez MD - 04/12/2024 11:20 AM EDT Subjective: Delonte Baltazar is a 38 y.o. male who presents to clinic today for Establish Care Encounter to establish care: - 2 months ago he started having a respiratory infection and has some shortness of rbeath and he's been on steroids 2 different times - he was told to go the ER twice and was evaluated and told his heart was okay - he felt better while on the steroids and then took an old prescription of amoxicillin - he took amoxicillin (4 days worth) 1- 2 weeks ago, he's been off for 5 days now - his symptoms have improved since amoxicillin - he's feeling stuffed today, but he has a history of allergies and is going to [facility] tomorrow Review of Systems Assessment/Plan: Delonte Dooley Seal Seal is a 38 y.o. male with a history of dyslipidemia, pancreatitis, obesity who presents to clinic today to address the following issues: 1. Family history of colon cancer 2. Class 3 severe obesity due to excess calories with serious comorbidity and body mass index (BMI)of 45.0 to 49.9 in adult (Multi) CBC and Auto Differential Comprehensive metabolic panel 3. Postnasal drip fluticasone (Flonase) 50 mcg/actuation nasal spray 4. Dyslipidemia rosuvastatin (Crestor) 20 mg tablet Lipid panel BP elevated - discussed lifestyle changes vs medicaiton and Delonte would like to take the next 6 months to work on lifestyle modifications Problem List Items Addressed This Visit Dyslipidemia Current Assessment & Plan - Chronic problem, unresolved, new to this provider, requires further workup and treatment - Discussed with pt that we should restart rosuvastatin and recheck lipids in 6 months Relevant Medications rosuvastatin (Crestor) 20 mg tablet Other Relevant Orders Lipid panel Family history of colon cancer - Primary Overview Mother had colon cancer age 54. Should start screening age 44. Class 3 severe obesity due to excess calories with serious comorbidity and body mass index (BMI) of45.0 to 49.9 in adult (Multi) Current Assessment & Plan - Chronic problem, unresolved, new to this provider, requires further workup and treatment - Discussed with pt different lifestyle options to help with weight loss, weight watchers, exerciseand surgical options Relevant Orders CBC and Auto Differential Comprehensive metabolic panel Postnasal drip Current Assessment & Plan - Chronic problem, unresolved, new to this provider, requires further workup and treatment - Discussed how nasal anatomy works and how inflamed nasal turbinates can lead to postnasal drip and coughing - discussed role of inhaled nasal steroids and how to take them, information was given in after visit summary Relevant Medications fluticasone (Flonase) 50 mcg/actuation nasal spray Patient Instructions Sinuses: Every day twice daily 1) 2 puffs Fluticasone in each nostril After two weeks, reduce that Flonase to 2 puffs once daily Follow up: 6 months for annual visit Return precautions discussed. An After Visit Summary was given to the patient. All questions were answered and patient in agreement with plan. Objective: BP 140/90 Pulse 101 Ht 1.88 m (6' 2) Wt (!) 163 kg (358 lb 14.4 oz) SpO2 97% BMI 46.08 kg/m Physical Exam Vitals and nursing note reviewed. Constitutional: General: He is not in acute distress. Appearance: Normal appearance. He is obese. He is not ill-appearing. HENT: Head: Normocephalic and atraumatic. Right Ear: Tympanic membrane, ear canal and external ear normal. There is no impacted cerumen. Left Ear: Tympanic membrane, ear canal and external ear normal. There is no impacted cerumen. Nose: Congestion present. Mouth/Throat: Mouth: Mucous membranes are moist. Pharynx: Posterior oropharyngeal erythema present. Eyes: General: No scleral icterus. Right eye: No discharge. Left eye: No discharge. Extraocular Movements: Extraocular movements intact. Conjunctiva/sclera: Conjunctivae normal. Cardiovascular: Rate and Rhythm: Normal rate and regular rhythm. Heart sounds: No murmur heard. Pulmonary: Effort: Pulmonary effort is normal. No respiratory distress. Breath sounds: Normal breath sounds. No wheezing. Musculoskeletal: Right lower leg: No edema. Left lower leg: No edema. Neurological: General: No focal deficit present. Mental Status: He is alert and oriented to person, place, and time. I spent 29 minutes in total time for this visit including all related clinical activities before, during, and after the visit excluding other billable activities/procedure time. Halle Rodriguez MD documented [facility]: [phone]) [phone] Instructions* Patient Instructions* Halle Rodriguez MD - 04/12/2024 11:20 AM EDT Sinuses: Every day twice daily 1) 2 puffs Fluticasone in each nostril After two weeks, reduce that Flonase to 2 puffs once daily documented in [facility]: [phone] Emergency department Note* Morris Montanez DO - 03/18/2024 5:15 PM EDTAssociated Order(s): ECG 12 lead HPI Chief Complaint Patient presents with Shortness of Breath States he started with cough and congestion 5 weeks ago. States he improved with steroids. C/o chest tightness and sob on and off since. Limitations to History: None HPI: 38-year-old male presents with concern for chest tightness. States that over the past 5 weeks he began with cough and congestion with sinus drainage. States that intermittently over the past 2 to 3 weeks he has had chest tightness. Currently not experiencing any chest tightness. Denies any shortness of breath, nausea, vomiting, diaphoresis. Additional History Obtained from: Significant other at the bedside. Physical Exam: VS: As documented in the triage note and EMR flowsheet from this visit were reviewed. Appearance: Alert. cooperative, in no acute distress. Skin: Intact, dry skin, no lesions, rash, petechiae or purpura. Eyes: PERRLA, EOMs intact, Conjunctiva pink with no redness or exudates. HENT: Normocephalic, atraumatic. Nares patent. No intraoral lesions. Neck: Supple, without meningismus. Trachea at midline. No lymphadenopathy. Pulmonary: Clear bilaterally with good chest wall excursion. No rales, rhonchi or wheezing. No accessory muscle use or stridor. Cardiac: Regular rate and rhythm, no rubs, murmurs, or gallops. Abdomen: Abdomen is soft, nontender, and nondistended. No palpable organomegaly. No rebound or guarding. No CVA tenderness. Nonsurgical abdomen. Genitourinary: Exam deferred. Musculoskeletal: Full range of motion. Pulses full and equal. No cyanosis, clubbing, or edema. Neurological: Cranial nerves are grossly intact, grossly normal sensation, no weakness, no focal findings identified. Psychiatric: Appropriate mood and affect. No data recorded Patient History No past medical history on file. No past surgical history on file. No family history on file. Social History Tobacco Use Smoking status: Former Current packs/day: 0.00 Average packs/day: 0.5 packs/day for 15.2 years (7.6 ttl pk-yrs) Types: Cigarettes Start date: 05/11/2002 Quit date: 07/31/2017 Years since quittin.6 Smokeless tobacco: Never Substance Use Topics Alcohol use: Yes Alcohol/week: 4.0 standard drinks of alcohol Types: 4 Cans of beer per week Drug use: Never Physical Exam ED Triage Vitals Temp Pulse Resp BP -- -- -- -- SpO2 Temp src Heart Rate Source Patient Position -- -- -- -- BP Location FiO2 (%) -- -- Physical Exam ED Course & MDM Medical Decision Making Labs Reviewed CBC WITH AUTO DIFFERENTIAL - Abnormal WBC 13.3 (*) nRBC 0.0 RBC 5.28 Hemoglobin 14.5 Hematocrit 43.7 MCV 83 MCH 27.5 MCHC 33.2 RDW 13.8 Platelets 305 Neutrophils % 53.0 Immature Granulocytes %, Automated 0.3 Lymphocytes % 40.5 Monocytes % 4.4 Eosinophils % 1.3 Basophils % 0.5 Neutrophils Absolute 7.07 Immature Granulocytes Absolute, Au* 0.04 Lymphocytes Absolute 5.40 (*) Monocytes Absolute 0.58 Eosinophils Absolute 0.17 Basophils Absolute 0.07 COMPREHENSIVE METABOLIC PANEL - Abnormal Glucose 78 Sodium 137 Potassium 3.8 Chloride 102 Bicarbonate 26 Anion Gap 13 Urea Nitrogen 18 Creatinine 0.68 eGFR >90 Calcium 9.8 Albumin 4.7 Alkaline Phosphatase 70 Total Protein 7.9 AST 27 Bilirubin, Total 0.6 ALT 63 (*) MAGNESIUM - Abnormal Magnesium 2.48 (*) D-DIMER, VTE EXCLUSION - Normal D-Dimer, Quantitative VTE Exclusion 313 Narrative: The VTE Exclusion D-Dimer assay is reported in ng/mL Fibrinogen Equivalent Units (FEU). Per recreation superintendent's instructions for use, a value of less than 500 ng/mL (FEU) may help to exclude DVT or PE in outpatients when the assay is used with a clinical pretest probability assessment.([facility] must utilize and document eCalc 'Wells Score Deep Vein Thrombosis Risk' for DVT exclusion only. Emergency Department should utilize Guidelines for Emergency Department Use of the VTE Exclusion D-Dimer and Clinical Pretest probability assessment model for DVT or PE exclusion.) SERIAL TROPONIN-INITIAL - Normal Troponin I, High Sensitivity 3 Narrative: Less than 99th percentile of normal range cutoff- Female and children under 18 years old <14 ng/L; Male <21 ng/L: Negative Repeat testing should be performed if clinically indicated. Female and children under 18 years old 14-50 ng/L; Male 21-50 ng/L: Consistent with possible cardiac damage and possible increased clinical risk. Serial measurements may help to assess extent of myocardial damage. >50 ng/L: Consistent with cardiac damage, increased clinical risk and myocardial infarction. Serial measurements may help assess extent of myocardial damage. NOTE: Children less than 1 year old may have higher baseline troponin levels and results should be interpreted in conjunction with the overall clinical context. NOTE: Troponin I testing is performed using a different testing methodology at [facility] than at other [facility]. Direct result comparisons should only be made within the same method. TROPONIN SERIES- (INITIAL, 1 HR) Narrative: The following orders were created for panel order Troponin I Series, High Sensitivity (0, 1 HR). Procedure Abnormality Status --------- ------ Troponin I, High Sensiti...[[id number]] Normal Final result Troponin, High Sensitivi...[[id number]] Please view results for these tests on the individual orders. SARS-COV-2 AND INFLUENZA A/B PCR SERIAL TROPONIN, 1 HOUR XR chest 1 view Final Result No detectable active cardiopulmonary disease. Signed by Edwin Kerns MD Medical Decision Making: Patient appears well nontoxic. No hypoxemia. EKG nonischemic. Leukocytosis of 13.3. Initial troponin negative. D-dimer negative. Chest x-ray clear. Patient signed out to incoming physician pending repeat troponin. Stable at time of handoff. Differential Diagnoses Considered: ACS, pneumonia, pneumothorax, musculoskeletal pain, anxiety, bronchitis, pulmonary embolism Independent Interpretation of Studies: I independently interpreted: Chest x-ray shows no evidence of pneumonia or pneumothorax. Escalation of Care: Appropriate for handoff to incoming physician. Procedure ECG 12 lead Performed by: Morris Montanez DO Authorized by: Morris Montanez DO ECG interpreted by ED Physician in the absence of a electronic component processor: yes Comments: EKG interpreted by Dr. Morris Montanez: Normal sinus rhythm at 97 bpm. QTc of 416 ms. NonspecificST changes. Morris Montanez DO 03/18/24 183 * Alan Carpio MD - 03/18/2024 5:15 PM EDT Emergency Medicine Transition of Care Note. I received Delonte Baltazar in signout from Dr. Martinez. Please see the previous ED provider note for allHPI, PE and MDM up to the time of signout at 7 PM. This is in addition to the primary record. In brief Delonte Baltazar is an 38 y.o. male presenting for Chief Complaint Patient presents with Shortness of Breath States he started with cough and congestion 5 weeks ago. States he improved with steroids. C/o chest tightness and sob on and off since. At the time of signout we were awaiting: Repeat troponin Diagnoses as of 03/18/242000 Chest pain, unspecified type Medical Decision Making Patient was checked out to me pending the results of the repeat troponin. Initial troponin was normal and the repeat was the same. I did order repeat EKG which demonstrated sinus rhythm rate of 95. Chest x-ray also negative. Patient can be discharged Final diagnoses: [R07.9] Chest pain, unspecified type Procedure Procedures MD Alan Ny MD 03/18/242000 documented in this [facility] Work Phone: [phone]) [phone] Physician Emergency department Note* Morris Montanez DO - 03/18/2024 5:15 PM EDTAssociated Order(s): ECG 12 lead HPI Chief Complaint Patient presents with Shortness of Breath States he started with cough and congestion 5 weeks ago. States he improved with steroids. C/o chest tightness and sob on and off since. Limitations to History: None HPI: 38-year-old male presents with concern for chest tightness. States that over the past 5 weeks he began with cough and congestion with sinus drainage. States that intermittently over the past 2 to 3 weeks he has had chest tightness. Currently not experiencing any chest tightness. Denies any shortness of breath, nausea, vomiting, diaphoresis. Additional History Obtained from: Significant other at the bedside. Physical Exam: VS: As documented in the triage note and EMR flowsheet from this visit were reviewed. Appearance: Alert. cooperative, in no acute distress. Skin: Intact, dry skin, no lesions, rash, petechiae or purpura. Eyes: PERRLA, EOMs intact, Conjunctiva pink with no redness or exudates. HENT: Normocephalic, atraumatic. Nares patent. No intraoral lesions. Neck: Supple, without meningismus. Trachea at midline. No lymphadenopathy. Pulmonary: Clear bilaterally with good chest wall excursion. No rales, rhonchi or wheezing. No accessory muscle use or stridor. Cardiac: Regular rate and rhythm, no rubs, murmurs, or gallops. Abdomen: Abdomen is soft, nontender, and nondistended. No palpable organomegaly. No rebound or guarding. No CVA tenderness. Nonsurgical abdomen. Genitourinary: Exam deferred. Musculoskeletal: Full range of motion. Pulses full and equal. No cyanosis, clubbing, or edema. Neurological: Cranial nerves are grossly intact, grossly normal sensation, no weakness, no focal findings identified. Psychiatric: Appropriate mood and affect. No data recorded Patient History No past medical history on file. No past surgical history on file. No family history on file. Social History Tobacco Use Smoking status: Former Current packs/day: 0.00 Average packs/day: 0.5 packs/day for 15.2 years (7.6 ttl pk-yrs) Types: Cigarettes Start date: 05/11/2002 Quit date: 07/31/2017 Years since quittin.6 Smokeless tobacco: Never Substance Use Topics Alcohol use: Yes Alcohol/week: 4.0 standard drinks of alcohol Types: 4 Cans of beer per week Drug use: Never Physical Exam ED Triage Vitals Temp Pulse Resp BP -- -- -- -- SpO2 Temp src Heart Rate Source Patient Position -- -- -- -- BP Location FiO2 (%) -- -- Physical Exam ED Course & MDM Medical Decision Making Labs Reviewed CBC WITH AUTO DIFFERENTIAL - Abnormal WBC 13.3 (*) nRBC 0.0 RBC 5.28 Hemoglobin 14.5 Hematocrit 43.7 MCV 83 MCH 27.5 MCHC 33.2 RDW 13.8 Platelets 305 Neutrophils % 53.0 Immature Granulocytes %, Automated 0.3 Lymphocytes % 40.5 Monocytes % 4.4 Eosinophils % 1.3 Basophils % 0.5 Neutrophils Absolute 7.07 Immature Granulocytes Absolute, Au* 0.04 Lymphocytes Absolute 5.40 (*) Monocytes Absolute 0.58 Eosinophils Absolute 0.17 Basophils Absolute 0.07 COMPREHENSIVE METABOLIC PANEL - Abnormal Glucose 78 Sodium 137 Potassium 3.8 Chloride 102 Bicarbonate 26 Anion Gap 13 Urea Nitrogen 18 Creatinine 0.68 eGFR >90 Calcium 9.8 Albumin 4.7 Alkaline Phosphatase 70 Total Protein 7.9 AST 27 Bilirubin, Total 0.6 ALT 63 (*) MAGNESIUM - Abnormal Magnesium 2.48 (*) D-DIMER, VTE EXCLUSION - Normal D-Dimer, Quantitative VTE Exclusion 313 Narrative: The VTE Exclusion D-Dimer assay is reported in ng/mL Fibrinogen Equivalent Units (FEU). Per recreation superintendent's instructions for use, a value of less than 500 ng/mL (FEU) may help to exclude DVT or PE in outpatients when the assay is used with a clinical pretest probability assessment.([facility] must utilize and document eCalc 'Wells Score Deep Vein Thrombosis Risk' for DVT exclusion only. Emergency Department should utilize Guidelines for Emergency Department Use of the VTE Exclusion D-Dimer and Clinical Pretest probability assessment model for DVT or PE exclusion.) SERIAL TROPONIN-INITIAL - Normal Troponin I, High Sensitivity 3 Narrative: Less than 99th percentile of normal range cutoff- Female and children under 18 years old <14 ng/L; Male <21 ng/L: Negative Repeat testing should be performed if clinically indicated. Female and children under 18 years old 14-50 ng/L; Male 21-50 ng/L: Consistent with possible cardiac damage and possible increased clinical risk. Serial measurements may help to assess extent of myocardial damage. >50 ng/L: Consistent with cardiac damage, increased clinical risk and myocardial infarction. Serial measurements may help assess extent of myocardial damage. NOTE: Children less than 1 year old may have higher baseline troponin levels and results should be interpreted in conjunction with the overall clinical context. NOTE: Troponin I testing is performed using a different testing methodology at [facility] than at other [place] [facility]. Direct result comparisons should only be made within the same method. TROPONIN SERIES- (INITIAL, 1 HR) Narrative: The following orders were created for panel order Troponin I Series, High Sensitivity (0, 1 HR). Procedure Abnormality Status --------- ------ Troponin I, High Sensiti...[[id number]] Normal Final result Troponin, High Sensitivi...[[id number]] Please view results for these tests on the individual orders. SARS-COV-2 AND INFLUENZA A/B PCR SERIAL TROPONIN, 1 HOUR XR chest 1 view Final Result No detectable active cardiopulmonary disease. Signed by Edwin Kerns MD Medical Decision Making: Patient appears well nontoxic. No hypoxemia. EKG nonischemic. Leukocytosis of 13.3. Initial troponin negative. D-dimer negative. Chest x-ray clear. Patient signed out to incoming physician pending repeat troponin. Stable at time of handoff. Differential Diagnoses Considered: ACS, pneumonia, pneumothorax, musculoskeletal pain, anxiety, bronchitis, pulmonary embolism Independent Interpretation of Studies: I independently interpreted: Chest x-ray shows no evidence of pneumonia or pneumothorax. Escalation of Care: Appropriate for handoff to incoming physician. Procedure ECG 12 lead Performed by: Morris Montanez DO Authorized by: Morris Montanez DO ECG interpreted by ED Physician in the absence of a electronic component processor: yes Comments: EKG interpreted by Dr. Morris Montanez: Normal sinus rhythm at 97 bpm. QTc of 416 ms. NonspecificST changes. Morris Montanez DO 04/19/24 1837 [facility] Work Phone: [phone]) [phone] Physician Emergency department Note* Alan Carpio MD - 03/18/2024 5:15 PM EDT Emergency Medicine Transition of Care Note. I received Delonte Baltazar in signout from Dr. Martinez. Please see the previous ED provider note for allHPI, PE and MDM up to the time of signout at 7 PM. This is in addition to the primary record. In brief Delonte Baltazar is an 38 y.o. male presenting for Chief Complaint Patient presents with Shortness of Breath States he started with cough and congestion 5 weeks ago. States he improved with steroids. C/o chest tightness and sob on and off since. At the time of signout we were awaiting: Repeat troponin Diagnoses as of 03/18/242000 Chest pain, unspecified type Medical Decision Making Patient was checked out to me pending the results of the repeat troponin. Initial troponin was normal and the repeat was the same. I did order repeat EKG which demonstrated sinus rhythm rate of 95. Chest x-ray also negative. Patient can be discharged Final diagnoses: [R07.9] Chest pain, unspecified type Procedure Procedures MD Alan Ny MD 03/18/242000 [facility] Work Phone: 1(174) 551-403304-01-2024 Emergency department Note* Morris Montanez DO - 02/29/2024 9:04 AM EDTAssociated Order(s): ECG 12 lead; ECG 12 lead HPI Chief Complaint Patient presents with Chest Pain Patient to ED reference chest pressure with cough/congestion and sinus pressure x 1 week that is worse this morning with slight difficulty breathing. Negative any nausea/vomiting of dizziness. Limitations to History: None HPI: 38-year-old male presents with concern for cough, congestion over the past 3 weeks. States it is productive of mucus. Has been having a burning pain in his chest over the past 2 days. Denies anyfever, chills, nausea, vomiting, abdominal pain, urinary symptoms. Physical Exam: VS: As documented in the triage note and EMR flowsheet from this visit were reviewed. Appearance: Alert. cooperative, in no acute distress. Skin: Intact, dry skin, no lesions, rash, petechiae or purpura. Eyes: PERRLA, EOMs intact, Conjunctiva pink with no redness or exudates. HENT: Normocephalic, atraumatic. Nares patent. No intraoral lesions. Neck: Supple, without meningismus. Trachea at midline. No lymphadenopathy. Pulmonary: Clear bilaterally with good chest wall excursion. No rales, rhonchi or wheezing. No accessory muscle use or stridor. Cardiac: Regular rate and rhythm, no rubs, murmurs, or gallops. Abdomen: Abdomen is soft, nontender, and nondistended. No palpable organomegaly. No rebound or guarding. No CVA tenderness. Nonsurgical abdomen. Genitourinary: Exam deferred. Musculoskeletal: Full range of motion. Pulses full and equal. No cyanosis, clubbing, or edema. Neurological: Cranial nerves are grossly intact, grossly normal sensation, no weakness, no focal findings identified. Psychiatric: Appropriate mood and affect. No data recorded Patient History No past medical history on file. No past surgical history on file. No family history on file. Social History Tobacco Use Smoking status: Former Packs/day: 0.50 Years: 15.00 Additional pack years: 0.00 Total pack years: 7.50 Types: Cigarettes Start date: 05/11/2002 Quit date: 07/31/2017 Years since quittin.5 Smokeless tobacco: Never Substance Use Topics Alcohol use: Yes Alcohol/week: 4.0 standard drinks of alcohol Types: 4 Cans of beer per week Drug use: Never Physical Exam ED Triage Vitals [02/29/24 0906] Temperature Heart Rate Respirations BP 36.8 C (98.3 F) (!) 103 18 (!) 178/117 Pulse Ox Temp Source Heart Rate Source Patient Position 96 % Temporal Monitor Lying BP Location FiO2 (%) Left arm -- Physical Exam ED Course & MDM Diagnoses as of 02/29/24 1115 Acute bronchitis, unspecified organism Chest pain, unspecified type Medical Decision Making Labs Reviewed CBC WITH AUTO DIFFERENTIAL - Abnormal WBC 12.3 (*) nRBC 0.0 RBC 5.36 Hemoglobin 14.6 Hematocrit 44.5 MCV 83 MCH 27.2 MCHC 32.8 RDW 13.5 Platelets 300 Neutrophils % 58.7 Immature Granulocytes %, Automated 0.8 Lymphocytes % 33.7 Monocytes % 4.3 Eosinophils % 1.9 Basophils % 0.6 Neutrophils Absolute 7.19 Immature Granulocytes Absolute, Au* 0.10 Lymphocytes Absolute 4.13 Monocytes Absolute 0.53 Eosinophils Absolute 0.23 Basophils Absolute 0.07 COMPREHENSIVE METABOLIC PANEL - Normal Glucose 98 Sodium 139 Potassium 3.9 Chloride 104 Bicarbonate 27 Anion Gap 12 Urea Nitrogen 11 Creatinine 0.68 eGFR >90 Calcium 9.3 Albumin 4.5 Alkaline Phosphatase 80 Total Protein 7.8 AST 22 Bilirubin, Total 0.5 ALT 50 MAGNESIUM - Normal Magnesium 2.16 SARS-COV-2 AND INFLUENZA A/B PCR - Normal Flu A Result Flu B Result Coronavirus 2019, PCR Narrative: This assay has received FDA Emergency Use Authorization (EUA) and is only authorized forthe duration of time that circumstances exist to justify the authorization of the emergency use of in vitro diagnostic tests for the detection of SARS-CoV-2 virus and/or diagnosis of COVID-19 infection under section 564(b)(1) of the Act, 21 U.S.C. 360bbb-3(b)(1). Testing for SARS-CoV-2 is only recommended for patients who meet current clinical and/or epidemiological criteria as defined by federal, state, or local public health directives. This assay is an in vitro diagnostic nucleic acid amplification test for the qualitative detection of SARS-CoV-2, Influenza A, and Influenza B from nasopharyngeal specimens and has been validated for use at [facility]. Negative results do not preclude COVID-19 infections or Influenza A/B infections, and should not be used as the sole basis for diagnosis, treatment, or other management decisions. If Influenza A/B and RSV PCR results are negative, testing for Parainfluenza virus, Adenovirus and Metapneumovirus is routinely performed for [facility] [place], and is available on other patients byplacing an add-on request. SERIAL TROPONIN-INITIAL - Normal Troponin I, High Sensitivity 4 Narrative: Less than 99th percentile of normal range cutoff- Female and children under 18 years old <14 ng/L; Male <21 ng/L: Negative Repeat testing should be performed if clinically indicated. Female and children under 18 years old 14-50 ng/L; Male 21-50 ng/L: Consistent with possible cardiac damage and possible increased clinical risk. Serial measurements may help to assess extent of myocardial damage. >50 ng/L: Consistent with cardiac damage, increased clinical risk and myocardial infarction. Serial measurements may help assess extent of myocardial damage. NOTE: Children less than 1 year old may have higher baseline troponin levels and results should be interpreted in conjunction with the overall clinical context. NOTE: Troponin I testing is performed using a different testing methodology at [facility] than at other [facility]. Direct result comparisons should only be made within the same method. SERIAL TROPONIN, 1 HOUR - Normal Troponin I, High Sensitivity 4 Narrative: Less than 99th percentile of normal range cutoff- Female and children under 18 years old <14 ng/L; Male <21 ng/L: Negative Repeat testing should be performed if clinically indicated. Female and children under 18 years old 14-50 ng/L; Male 21-50 ng/L: Consistent with possible cardiac damage and possible increased clinical risk. Serial measurements may help to assess extent of myocardial damage. >50 ng/L: Consistent with cardiac damage, increased clinical risk and myocardial infarction. Serial measurements may help assess extent of myocardial damage. NOTE: Children less than 1 year old may have higher baseline troponin levels and results should be interpreted in conjunction with the overall clinical context. NOTE: Troponin I testing is performed using a different testing methodology at [facility] than at other [facility]. Direct result comparisons should only be made within the same method. TROPONIN SERIES- (INITIAL, 1 HR) XR chest 1 view Final Result No acute process. Signed by Brando Farrar MD Medical Decision Making: Patient appears well nontoxic. Treated with 1 L normal saline. White blood cell count of 12,000. Otherwise lab work within normal limits including 2 negative high-sensitivity troponins. Chest x-ray clear. EKG nonischemic. Heart score of 2. Will be treated with prednisone and albuterol at home with concern for acute bronchitis. Asked to return for new or worsening symptoms. Patient agreeable and discharged home in stable condition. Differential Diagnoses Considered: Acute bronchitis, pneumonia, pneumothorax, ACS Independent Interpretation of Studies: I independently interpreted: Chest x-ray shows no evidence of pneumonia or pneumothorax. Escalation of Care: Appropriate for discharge and follow-up with primary care. Prescription Drug Consideration: Oral prednisone and albuterol inhaler. Procedure ECG 12 lead Performed by: Morris Montanez DO Authorized by: Morris Montanez DO ECG interpreted by ED Physician in the absence of a electronic component processor: yes Comments: EKG interpreted by Dr. Morris Montanez: Sinus tachycardia at a rate of 103 bpm. MI interval 152 ms. QTc of 440 ms. ECG 12 lead Performed by: Morris Montanez DO Authorized by: Morris Montanez DO ECG interpreted by ED Physician in the absence of a electronic component processor: yes Comments: Repeat EKG performed at [address] Morris Montanez at 1013: Normal sinus rhythm at 91 bpm. MI interval 166 ms. QTc of [address] changes. Morris Montanez DO 02/29/24 1116 documented in this [facility] Work Phone: [phone]) 833-622004-01-2024 Physician Emergency department Note* Morris Montanez DO - 02/29/2024 9:04 AM EDTAssociated Order(s): ECG 12 lead; ECG 12 lead HPI Chief Complaint Patient presents with Chest Pain Patient to ED reference chest pressure with cough/congestion and sinus pressure x 1 week that is worse this morning with slight difficulty breathing. Negative any nausea/vomiting of dizziness. Limitations to History: None HPI: 38-year-old male presents with concern for cough, congestion over the past 3 weeks. States it is productive of mucus. Has been having a burning pain in his chest over the past 2 days. Denies anyfever, chills, nausea, vomiting, abdominal pain, urinary symptoms. Physical Exam: VS: As documented in the triage note and EMR flowsheet from this visit were reviewed. Appearance: Alert. cooperative, in no acute distress. Skin: Intact, dry skin, no lesions, rash, petechiae or purpura. Eyes: PERRLA, EOMs intact, Conjunctiva pink with no redness or exudates. HENT: Normocephalic, atraumatic. Nares patent. No intraoral lesions. Neck: Supple, without meningismus. Trachea at midline. No lymphadenopathy. Pulmonary: Clear bilaterally with good chest wall excursion. No rales, rhonchi or wheezing. No accessory muscle use or stridor. Cardiac: Regular rate and rhythm, no rubs, murmurs, or gallops. Abdomen: Abdomen is soft, nontender, and nondistended. No palpable organomegaly. No rebound or guarding. No CVA tenderness. Nonsurgical abdomen. Genitourinary: Exam deferred. Musculoskeletal: Full range of motion. Pulses full and equal. No cyanosis, clubbing, or edema. Neurological: Cranial nerves are grossly intact, grossly normal sensation, no weakness, no focal findings identified. Psychiatric: Appropriate mood and affect. No data recorded Patient History No past medical history on file. No past surgical history on file. No family history on file. Social History Tobacco Use Smoking status: Former Packs/day: 0.50 Years: 15.00 Additional pack years: 0.00 Total pack years: 7.50 Types: Cigarettes Start date: 05/11/2002 Quit date: 07/31/2017 Years since quittin.5 Smokeless tobacco: Never Substance Use Topics Alcohol use: Yes Alcohol/week: 4.0 standard drinks of alcohol Types: 4 Cans of beer per week Drug use: Never Physical Exam ED Triage Vitals [02/29/24 0906] Temperature Heart Rate Respirations BP 36.8 C (98.3 F) (!) 103 18 (!) 178/117 Pulse Ox Temp Source Heart Rate Source Patient Position 96 % Temporal Monitor Lying BP Location FiO2 (%) Left arm -- Physical Exam ED Course & MDM Diagnoses as of 02/29/24 1115 Acute bronchitis, unspecified organism Chest pain, unspecified type Medical Decision Making Labs Reviewed CBC WITH AUTO DIFFERENTIAL - Abnormal WBC 12.3 (*) nRBC 0.0 RBC 5.36 Hemoglobin 14.6 Hematocrit 44.5 MCV 83 MCH 27.2 MCHC 32.8 RDW 13.5 Platelets 300 Neutrophils % 58.7 Immature Granulocytes %, Automated 0.8 Lymphocytes % 33.7 Monocytes % 4.3 Eosinophils % 1.9 Basophils % 0.6 Neutrophils Absolute 7.19 Immature Granulocytes Absolute, Au* 0.10 Lymphocytes Absolute 4.13 Monocytes Absolute 0.53 Eosinophils Absolute 0.23 Basophils Absolute 0.07 COMPREHENSIVE METABOLIC PANEL - Normal Glucose 98 Sodium 139 Potassium 3.9 Chloride 104 Bicarbonate 27 Anion Gap 12 Urea Nitrogen 11 Creatinine 0.68 eGFR >90 Calcium 9.3 Albumin 4.5 Alkaline Phosphatase 80 Total Protein 7.8 AST 22 Bilirubin, Total 0.5 ALT 50 MAGNESIUM - Normal Magnesium 2.16 SARS-COV-2 AND INFLUENZA A/B PCR - Normal Flu A Result Flu B Result Coronavirus 2019, PCR Narrative: This assay has received FDA Emergency Use Authorization (EUA) and is only authorized forthe duration of time that circumstances exist to justify the authorization of the emergency use of in vitro diagnostic tests for the detection of SARS-CoV-2 virus and/or diagnosis of COVID-19 infection under section 564(b)(1) of the Act, 21 U.S.C. 360bbb-3(b)(1). Testing for SARS-CoV-2 is only recommended for patients who meet current clinical and/or epidemiological criteria as defined by federal, state, or local public health directives. This assay is an in vitro diagnostic nucleic acid amplification test for the qualitative detection of SARS-CoV-2, Influenza A, and Influenza B from nasopharyngeal specimens and has been validated for use at [facility]. Negative results do not preclude COVID-19 infections or Influenza A/B infections, and should not be used as the sole basis for diagnosis, treatment, or other management decisions. If Influenza A/B and RSV PCR results are negative, testing for Parainfluenza virus, Adenovirus and Metapneumovirus is routinely performed for [facility] [place], and is available on other patients byplacing an add-on request. SERIAL TROPONIN-INITIAL - Normal Troponin I, High Sensitivity 4 Narrative: Less than 99th percentile of normal range cutoff- Female and children under 18 years old <14 ng/L; Male <21 ng/L: Negative Repeat testing should be performed if clinically indicated. Female and children under 18 years old 14-50 ng/L; Male 21-50 ng/L: Consistent with possible cardiac damage and possible increased clinical risk. Serial measurements may help to assess extent of myocardial damage. >50 ng/L: Consistent with cardiac damage, increased clinical risk and myocardial infarction. Serial measurements may help assess extent of myocardial damage. NOTE: Children less than 1 year old may have higher baseline troponin levels and results should be interpreted in conjunction with the overall clinical context. NOTE: Troponin I testing is performed using a different testing methodology at [facility] than at [facility]. Direct result comparisons should only be made within the same method. SERIAL TROPONIN, 1 HOUR - Normal Troponin I, High Sensitivity 4 Narrative: Less than 99th percentile of normal range cutoff- Female and children under 18 years old <14 ng/L; Male <21 ng/L: Negative Repeat testing should be performed if clinically indicated. Female and children under 18 years old 14-50 ng/L; Male 21-50 ng/L: Consistent with possible cardiac damage and possible increased clinical risk. Serial measurements may help to assess extent of myocardial damage. >50 ng/L: Consistent with cardiac damage, increased clinical risk and myocardial infarction. Serial measurements may help assess extent of myocardial damage. NOTE: Children less than 1 year old may have higher baseline troponin levels and results should be interpreted in conjunction with the overall clinical context. NOTE: Troponin I testing is performed using a different testing methodology at [facility] than at [facility]. Direct result comparisons should only be made within the same method. TROPONIN SERIES- (INITIAL, 1 HR) XR chest 1 view Final Result No acute process. Signed by Brando Farrar MD Medical Decision Making: Patient appears well nontoxic. Treated with 1 L normal saline. White blood cell count of 12,000. Otherwise lab work within normal limits including 2 negative high-sensitivity troponins. Chest x-ray clear. EKG nonischemic. Heart score of 2. Will be treated with prednisone and albuterol at home with concern for acute bronchitis. Asked to return for new or worsening symptoms. Patient agreeable and discharged home in stable condition. Differential Diagnoses Considered: Acute bronchitis, pneumonia, pneumothorax, ACS Independent Interpretation of Studies: I independently interpreted: Chest x-ray shows no evidence of pneumonia or pneumothorax. Escalation of Care: Appropriate for discharge and follow-up with primary care. Prescription Drug Consideration: Oral prednisone and albuterol inhaler. Procedure ECG 12 lead Performed by: oMrris Montanez DO Authorized by: Morris Montanez DO ECG interpreted by ED Physician in the absence of a electronic component processor: yes Comments: EKG interpreted by Dr. Morris Montanez: Sinus tachycardia at a rate of 103 bpm. MI interval 152 ms. QTc of 440 ms. ECG 12 lead Performed by: Morris Montanez DO Authorized by: Morris Montanez DO ECG interpreted by ED Physician in the absence of a electronic component processor: yes Comments: Repeat EKG performed at [address] Morris Montanez at 1013: Normal sinus rhythm at 91 bpm. MI interval 166 ms. QTc of [address] changes. Morris Montanez DO 02/29/24 1116 [facility] Work Phone: [phone] History of Present illness Narrative* Heena Tobar MA - 02/03/2024 4:15 PM EST Vasectomy Patient ID: Delonte Baltazar is a 38 y.o. male. Procedures The patient was prepped and draped in the standard surgical fashion. 1% Lidocaine was injected intothe scrotum. A small scrotal excision was made and the vas deferens brought through the incision. We then dissected the vas deferens free of its surroundings attachments and three clips were placed on the vas deferens. A section of the vas deferens was then excised. We then assured that adequate hemostasis was obtained. I closed the excision with a single chromic suture. The identical procedure was performed on the opposite side. The patient tolerated the procedure well and there were no complications. The patient was instructed on post-operative care as well as the importance of dropping offa semen analysis. The post-operative instructions were given to the patient in writing as well. FOLLOW UP PRN documented in this [facility] Work Phone: [phone] 344-335301-24-2024 History of Present illness Narrative* Jean Pitts MD - 12/23/2023 11:00 AM EST Subjective Patient ID: Delonte Baltazar is a 38 y.o. male. HPI Patient is here for vasectomy consult. He has 2 children. No LUT'S sx. Review of Systems Constitutional: Negative for chills and fever. HENT: Negative. Eyes: Negative. Respiratory: Negative for cough and shortness of breath. Cardiovascular: Negative for chest pain and leg swelling. Gastrointestinal: Negative for nausea. Endocrine: Negative. Genitourinary: Negative for difficulty urinating. Negative except for documented in HPI Allergic/Immunologic: Negative. Neurological: Alert & oriented X 3 Hematological: Denies blood thinners Psychiatric/Behavioral: Negative. Objective Physical Exam Vitals and nursing note reviewed. Constitutional: General: He is not in acute distress. Appearance: Normal appearance. Pulmonary: Effort: Pulmonary effort is normal. Abdominal: Tenderness: There is no abdominal tenderness. Genitourinary: Comments: Kidneys non palpable bilaterally Bladder non palpable or tender Scrotum no mass, No hydrocele Epididymis- No spermatocele. Non Tender. Testicles: No mass Urethra: No discharge Penis within normal limits... No lesions. circumcised Prostate - deferred Neurological: Mental Status: He is alert. Assessment/Plan Pros/cons of vasectomy reviewed. Questions answered. Valium Rx offered. Observe mild LUTS. F/U vas in office Diagnoses and all orders for this visit: Encounter for vasectomy assessment documented in this [facility] Work Phone: [phone] 175-287202-01-2023 History of Present illness Narrative* Patient presents to establish care. * Currently, patient is a chronic illnesses and takes no daily medicines. * Patient was admitted earlier this month for acute pancreatitis. Patient reports onset of fairly severe progressively worsening abdominal pain resulting in ER visit. Patient was found to have a 17,000white count with left shift, elevated ESR of 98, mild hyponatremia, mild hypokalemia, elevated CRP a t 295, admission lipase was 321, ultrasound was inconclusive due to poor study, CT showed peripancreatic stranding and a small amount of free fluid without pancreatic ductal dilatation or pancreatic or biliary duct stone. Incidental hepatic steatosis was noted as well. Patient was n.p.o. and did wel l after 4 days of admission and has been discharged with follow-up orders for gastroenterology. Thecause of the pancreatitis is unknown. Patient does not drink alcohol habitually, does not take any medications, no known history of diabetes, or any other known precipitating event prior to onset. * Acutely, patient requesting evaluation of cough. Patient has had cough that is waxed and waned overthe past 1 to 2 months and has worsened recently. Patient does admit to untreated seasonal allergies. No fever, chills, nausea, diarrhea, or other constitutional signs and symptoms related to the cough. [facility] Work Phone: [phone] 322-753202-01-2023 History of Present illness Narrative* Delonte is an unfortunate 37-year-old male who was hospitalized in December for acute pancreatitis at [facility]. While hospitalized his transaminases remain normal although his lipase elevated to above 6000. While hospitalized he had a CT scan of his abdomen showing pancreatitis and an MRCP whichconfirmed pancreatitis. * He is continues have some digestive issues since discharge which have improved over the last week. He is now having normal formed stools his abdominal pain and back pain have resolved. He is eating khari restrictive diet avoiding anything that is heavily fatty or fried. * He admits that his recent episode of pancreatitis was triggered by sinus drainage and possible antibiotics. He does admit to heavy drinking in the past, he quit alcohol 5 years ago and just drinks sporadically. He did consume alcohol 1 week prior to his last episode of pancreatitis. * He denies any other complaints. Repeat ultrasound of his right upper quadrant done through his family doctor does show what appeared to be pseudocyst forming on his pancreas. His most recent comprehensive panel shows a mild elevated ALT at 58 with normal bilirubin normal alk phos. Blood sugar was no rmal. Triglycerides were 504 and his A1c was 5.5%. [facility] [address] Work Phone: Evaluation note* Diagnosis Encounter for vasectomy assessment documented in this encounter [facility] Work Phone: Evaluation note* Diagnosis Admission for vasectomy Sterilization documented in this encounter [facility] Work Phone: Evaluation note* Diagnosis Acute bronchitis, unspecified organism- Primary Chest pain, unspecified type documented in this encounter [facility] Work Phone: Evaluation note* Diagnosis Chest pain, unspecified type- Primary documented in this encounter [facility] Work Phone: Evaluation note* Diagnosis Family history of colon cancer- Primary Family history of malignant neoplasm of gastrointestinal tract Class 3 severe obesity due to excess calories with serious comorbidity and body mass index (BMI) of 45.0 to 49.9 in adult (Multi) Postnasal drip Dyslipidemia Other and unspecified hyperlipidemia documented in this encounter [facility] Work Phone: Evaluation note* Diagnosis Family history of colon cancer- Primary Family history of malignant neoplasm of gastrointestinal tract Class 3 severe obesity due to excess calories with serious comorbidity and body mass index (BMI) of 45.0 to 49.9 in adult Postnasal drip Dyslipidemia Other and unspecified hyperlipidemia Environmental allergies- Primary Other allergy, other than to medicinal agents Postnasal drip Concentration deficit documented in this encounter [facility] Work Phone: Evaluation note* Diagnosis Family history of colon cancer- Primary Family history of malignant neoplasm of gastrointestinal tract Class 3 severe obesity due to excess calories with serious comorbidity and body mass index (BMI) of 45.0 to 49.9 in adult (Multi) Postnasal drip Dyslipidemia Other and unspecified hyperlipidemia Pain in other joint- Primary Myalgia Unspecified myalgia and myositis Postnasal drip Environmental allergies Other allergy, other than to medicinal agents documented in this encounter [facility] Work Phone: Evaluation note* Diagnosis Family history of colon cancer- Primary Family history of malignant neoplasm of gastrointestinal tract Class 3 severe obesity due to excess calories with serious comorbidity and body mass index (BMI) of 45.0 to 49.9 in adult (Multi) Postnasal drip Dyslipidemia Other and unspecified hyperlipidemia Class 3 severe obesity due to excess calories with serious comorbidity and body mass index (BMI) of 45.0 to 49.9 in adult (Multi)- Primary Snoring Other dyspnea and respiratory abnormality Hypersomnia Hypersomnia, unspecified Elevated erythrocyte sedimentation rate Elevated sedimentation rate documented in this encounter [facility] Work Phone: Evaluation note* Diagnosis Family history of colon cancer- Primary Family history of malignant neoplasm of gastrointestinal tract Class 3 severe obesity due to excess calories with serious comorbidity and body mass index (BMI) of 45.0 to 49.9 in adult Postnasal drip Dyslipidemia Other and unspecified hyperlipidemia Postnasal drip- Primary Mixed hyperlipidemia Hypertriglyceridemia Pure hyperglyceridemia Need for yvgukmustv-kdstgnv-stufhuhoa (Tdap) vaccine Need for prophylactic vaccination with combined cvrnhpambp-axhcaca-orrsswalf (DTP) vaccine documented in this encounter [facility] Work Phone: Evaluation noteNo assessment information available [facility] Work Phone: Evaluation note* Diagnosis Family history of colon cancer- Primary Family history of malignant neoplasm of gastrointestinal tract Class 3 severe obesity due to excess calories with serious comorbidity and body mass index (BMI) of 45.0 to 49.9 in adult Postnasal drip Dyslipidemia Other and unspecified hyperlipidemia Chest pain due to myocardial ischemia, unspecified ischemic chest pain type- Primary documented in this encounter [facility] Work Phone: Evaluation note* Diagnosis Family history of colon cancer- Primary Family history of malignant neoplasm of gastrointestinal tract Class 3 severe obesity due to excess calories with serious comorbidity and body mass index (BMI) of 45.0 to 49.9 in adult Postnasal drip Dyslipidemia Other and unspecified hyperlipidemia Chest pain due to myocardial ischemia, unspecified ischemic chest pain type documented in this encounter [facility] Work Phone: Evaluation note* Diagnosis Family history of colon cancer- Primary Family history of malignant neoplasm of gastrointestinal tract Class 3 severe obesity due to excess calories with serious comorbidity and body mass index (BMI) of 45.0 to 49.9 in adult Postnasal drip Dyslipidemia Other and unspecified hyperlipidemia History of pancreatitis Personal history of other diseases of digestive disease documented in this encounter [facility] Work Phone: Evaluation note* Diagnosis Family history of colon cancer- Primary Family history of malignant neoplasm of gastrointestinal tract Class 3 severe obesity due to excess calories with serious comorbidity and body mass index (BMI) of 45.0 to 49.9 in adult Postnasal drip Dyslipidemia Other and unspecified hyperlipidemia Chest pain due to myocardial ischemia, unspecified ischemic chest pain type Chest pain, unspecified documented in this encounter [facility] Work Phone: Hospital Discharge instructions* Attachments The following attachments cannot be sent through Care Everywhere. * Bronchitis, Adult ED (Greek) * Chest Pain, Adult ED (Greek) [facility] Discharge instructions* Attachments The following attachments cannot be sent through Care Everywhere. * Chest Pain Discharge Instructions (Greek) [facility]: Reason for referral (narrative)* Consultation (Routine) - Authorized Specialty Diagnoses / Procedures Referred By Oralia ritchie Referred To Contact Family Medicine / Primary Care Morris Montanez DO [address] [place] [address] Department [place] [address] Referral ID Status Reason Start Date Expiration Date Visits Requested Visits Authorized [id number] Authorized Specialty Services Required 02/29/2024 02/28/2025 1 1 [facility] Work Phone: Reason for referral (narrative)No reason for referral information availableWHol[facility] Work Phone: Reason for visit Narrative* Imaging (Routine) - Authorized Specialty Diagnoses / Procedures Referred By Oralia ritchie Referred To Contact Radiology Diagnoses Chest pain due to myocardial ischemia, unspecified ischemic chest pain type Procedures US gallbladder Harish Florez, DO [address] [facility], [place] [address] Phone: tel: fax: Referral ID Status Reason Start Date Expiration Date Visits Requested Visits Authorized [id number] Authorized Perform Procedure 2025 2026 1 1 [facility] Work Phone: Reason for visit Narrative* Imaging (Routine) - Authorized Specialty Diagnoses / Procedures Referred By Oralia ritchie Referred To Contact Radiology Diagnoses History of pancreatitis Procedures CT abdomen pelvis w IV contrast Harish Florez DO [address] [facility], [place] [address] Phone: tel: fax: Referral ID Status Reason Start Date Expiration Date Visits Requested Visits Authorized [id number] Authorized Perform Procedure 06/06/2025 06/06/2026 1 1 [facility] Work Phone: Reason for visit Narrative* Cardiac Stress Testing (Routine) - Pending Review Specialty Diagnoses / Procedures Referred By Oralia ritchie Referred To Contact Cardiology Diagnoses Chest pain due to myocardial ischemia, unspecified ischemic chest pain type Procedures Stress Test MI CV STRS TST XERS&/OR RX CONT ECG TRCG ONLY Harish Florez DO [address] [facility], [place] [address] Phone: tel: fax: Referral ID Status Reason Start Date Expiration Date V isits Requested Visits Authorized [id number] Pending Review 08/04/2025 08/04/2026 1 1 [facility] Work Phone: Summary Purpose Family History No Family History Records FoundUnknown Family Member Name Dates Details Family history of rectal can cer: Mother(V16.0, Z80.0) Status:Active Unknown Family Member Name Dates Details Family history of rectal can cer: Mother(V16.0, Z80.0) Status:Active Unknown Family Member Name Dates Details Family history of rectal can cer: Mother(V16.0, Z80.0) Status:Active Unknown Family Member Name Dates Details Family history of rectal can cer: Mother(V16.0, Z80.0) Status:Active Unknown Family Member Name Dates Details Family history of rectal can cer: Mother(V16.0, Z80.0) Status:Active Advance Directives No Advanced Directives Records Found Advance Directive Response Recorded Date/ Time Do you have a Healthcare Power of Channel Marketing Manager? No May 17, 2025 4:01pm Chief Complaint * Patient here today to get established as a new patient and follow up hospital. * Admitted for pancreatitis 2 weeks ago at [facility], offers no complaints. Pt here for follow up pancreatitis. Pt was hospitalized at [facility] beginning of December forsevere abdominal pain, which has since resolved. Denies nausea, and vomiting. Reason for Referral Specialty Diagnoses / Procedures Referred By Oralia ritchie Referred To Contact Sleep Lab Diagnoses Class 3 severe obesity due to excess calories with serious comorbidity and body mass index (BMI) of 45.0 to 49.9 in adult (Multi) Snoring Hypersomnia Procedures Home sleep apnea test (HSAT) Halle Rodriguez MD [address] [address] Referral ID Status Reason Start Date Expiration Date V isits Requested Visits Authorized [id number] Pending Review 08/15/2024 08/15/2025 1 1 Specialty Diagnoses / Procedures Referred By Oralia ritchie Referred To Contact Rheumatology Diagnoses Elevated erythrocyte sedimentation rate Halle Rodriguez MD [address] [address] Michelle Li MD [address] [facility] [address] [place] [address] Referral ID Status Reason Start Date Expiration Date V isits Requested Visits Authorized [id number] Closed Specialty Services Required 08/15/2024 08/15/2025 1 1 Chief Complaint and Reason for Visit Chief Complaint Admit Date UPPER EXTREMITY May 17, 2025 2:56 pm Additional Source Comments (unrecognized sect ion and content) No Status Records FoundNo Status Records FoundNo Status Records FoundNo Status Records FoundNo Status Records FoundNo Status Records FoundNo Status Records FoundNo Status Records FoundNo Status Records FoundNo Status Records FoundNo Status Records Found INFORMATION SOURCE (unrecogn ized section and content) DATE CREATED AUTHOR 09/06/2019 [facility] DATE CREATED AUTHOR AUTHOR'S ORGANIZ ATION 01/20/2023 [facility] DATE CREATED AUTHOR AUTHOR'S ORGANIZ ATION 03/01/2023 [employer] DATE CREATED AUTHOR AUTHOR'S ORGANIZ ATION 05/17/2023 [facility] DATE CREATED AUTHOR AUTHOR'S ORGANIZ ATION 03/25/2024 [facility] DATE CREATED AUTHOR AUTHOR'S ORGANIZ ATION 05/02/2024 [facility] DATE CREATED AUTHOR AUTHOR'S ORGANIZ ATION 09/20/2024 [facility] DATE CREATED AUTHOR AUTHOR'S ORGANIZ ATION 06/25/2025 [facility] DATE CREATED AUTHOR AUTHOR'S ORGANIZ ATION 08/05/2025 [facility] DATE CREATED AUTHOR AUTHOR'S ORGANIZ ATION 08/13/2025 [facility] DATE CREATED AUTHOR AUTHOR'S ORGANIZ ATION 08/14/2025 [facility] Reason for Visit (unrecogniz ed section and content) Reason Comments VAS CONSULT Reason Comments Sterilization Reason Comments Chest Pain Patient to ED refere nce chest pressure with cough/congestion and sinus pressure x 1 week that is worse this morning with slight difficulty breathing. Negative any nausea/vomiting of dizziness. Reason Comments Shortness of Breath States he started wi th cough and congestion 5 weeks ago. States he improved with steroids. C/o chest tightness and sob on and off since. Reason Comments Establish Care Reason Comments Follow-up 1 MO FU Reason Comments Sinusitis Reason Comments Follow-up Follow up for labs, states feeling like he is feeling sinus pressure again, muscle aches and joint pain all over (hands, calves, feet, shoulder). Reason Comments Follow-up 3 MO FU Reason Comments Follow-up FUV today from an ER visit 05/17 at [facility] for elevated HR and BP. Patient reports that they said possible GI issue (ulcers) Patient states that he does have some burning in the chest. Pepcid OTC isnt helping with the burning in the chest. Care Teams (unrecognized sec tion and content) Correctional Guard Relationship Specialty Start Date End Date Delonte Posey PA-C [address] [place] [address] PCP - General 01/20/23 Delonte Posey PA-C [address] [place] [address], [address] [address] PCP - MMO ACO PCP 03/30/23 Correctional Guard Relationship Specialty Start Date End Date Delonte Posey PA [address] [place] [address] PCP - General 01/20/23 Delonte Posey PA [address] [place] [address], [address] [address] PCP - MMO ACO PCP 03/30/23 Correctional Guard Relationship Specialty Start Date End Date Delonte Posey PA-C [address] [place] [address] PCP - General 01/20/23 Harish Florez DO [address] [facility], [address] [address] PCP - MMO ACO PCP 11/30/23 Correctional Guard Relationship Specialty Start Date End Date Harish Florez DO [address] [facility], [address] [address] PCP - MMO ACO PCP 11/30/23 Generic Provider, No [place] [address] PCP - General Application Integration Specialist 03/18/24 Correctional Guard Relationship Specialty Start Date End Date Harish Florez DO [address] [facility], [address] [address] PCP - MMO ACO PCP 11/30/23 Generic Provider, [place] [address] PCP - General Application Integration Specialist 03/18/24 Correctional Guard Relationship Specialty Start Date End Date Harish Florez DO [address] [facility], [place] [id number] PCP - MMO ACO PCP 11/30/23 Halle Rodriguez MD [address] [place] [id number] PCP - General Family Medicine 04/12/24 Correctional Guard Relationship Specialty Start Date End Date Halle Rodriguez MD [address] [address] PCP - General Family Medicine 04/12/24 Halle Rodriguez MD [address] [address] PCP - MMO ACO PCP 04/30/24 Correctional Guard Relationship Specialty Start Date End Date Halle Rodriguez MD [address] [place] [address] PCP - General Family Medicine 04/12/24 Halle Rodriguez MD [address] [place] [address] PCP - MMO ACO PCP 04/30/24 Correctional Guard Relationship Specialty Start Date End Date Halle Rodriguez MD [address] [address] PCP - General Family Medicine 04/12/24 Halle Rodriguez MD [address] [address] PCP - MMO ACO PCP 04/30/24 Correctional Guard Relationship Specialty Start Date End Date Halle Rodriguez MD [address] [address] PCP - General Family Medicine 04/12/24 Team Status: Active Member Role Status Dates HALLE HICKMANLESLIE Primary Care Provider Active Team Status: Inactive Member Role Status Dates VICK NERILESLIE Primary Care Provider Active Start : May 17, 2025 End: May 17, 2025 Dr. Mauricio Holt MD Emergency Provider Active Sta rt: May 17, 2025 End: May 17, 2025 Correctional Guard Relationship Specialty Start Date End Date Halle Rodriguez MD [address] [address] PCP - General Family Medicine 04/12/24 Halle Rodriguez MD [address] [address] PCP - MMO ACO PCP 12/31/24 Correctional Guard Relationship Specialty Start Date End Date Halle Rodriguez MD [address] [address] PCP - General Family Medicine 04/12/24 Halle Rodriguez MD [address] [address] PCP - MMO ACO PCP 12/31/24 Correctional Guard Relationship Specialty Start Date End Date Halle Rodriguez MD [address] [address] PCP - General Family Medicine 04/12/24 Halle Rodriguez MD [address] [address] PCP - MMO ACO PCP 12/31/24 Correctional Guard Relationship Specialty Start Date End Date Halle Rodriguez MD [address] [address] PCP - General Family Medicine 04/12/24 Halle Rodriguez MD [address] [address] PCP - MMO ACO PCP 12/31/24 Scheduled Active and Recently Administ ered Medications (unrecognized section and content) Medication Order 02/27/2024 02/28/2024 02/29/2024 sodium chloride 0.9 % bolus 1,000 mL (COMPLETED) 1,000 mL, intravenous, at 1,000 mL/hr, Administer over 1 Hours, Once, On Thu02/29/24 at 0925, For 1 dose 0925 (New Bag - Prov ider: Bette Navas RN)1025 (Stopped - Provider: Bette Navas RN) Goals (unrecognized section and content) Goals may be documented in a n alternate section FOR RECORDS PERTAINING TO PATIENTS WHO ARE OR HAVE BEEN ENROLLED IN A CHEMICAL DEPENDENCY/SUBSTANCEABUSE PROGRAM, SOME INFORMATION MAY BE OMITTED. This clinical summary was aggregated from multiple sources. Caution should be exercised in using it in the provision of clinical care. This summary normalizes information from multiple sources, and as a consequence, information in this document may materially change the coding, format and clinical context of patient data. In addition, data may be omitted in some cases. CLINICAL DECISIONS SHOULD BE BASED ON THE PRIMARY CLINICAL RECORDS. [employer] [facility]. provides no warranty or guarantee of the accuracy or completeness of information in this document.
== END | disposition home or self-care (01) ==
LOC: US 07:22
PROVIDERS: Referring Provider Internal Medicine; Visit Provider Internal Medicine
DX: K75.81 Nonalcoholic steatohepatitis (NASH) (principal)
CPT/HCPCS: 76705; 76981